=== PATIENT | female | born 1975 | race Hispanic/Latino ===

== ENCOUNTER 2016-09-21 14:50 | Inpatient (IN) | payer MEDICARE, MEDICAID, OTHER ==
[2016-09-21] MEDS ORDERED: oxyCODONE 5 mg Immediate Release Tab PO STA (15:58)
[2016-09-21 16:18] LABS: EOS # 0.1 (0.0-0.7); EOS % 1.6 % (1.5-5.0); GRAN # 2.36 (1.4-6.5); GRAN % 76.9 % (50.0-68.0); HEMOGLOBIN 12.5 gm/dL (12.0-16.0); LYMPH # 0.6 (1.2-3.4); LYMPH % 17.9 % (22.0-35.0); MEAN CELL VOLUME 85.9 fL (80.0-105.0); MEAN CORPUSCULAR HEMOGLOBIN 30.4 pg (25.0-35.0); MEAN CORPUSCULAR HGB CONC 35.4 g/dl (31.0-37.0); MONO # 0.1 (0.1-0.6); MONO % 3.6 % (1.0-6.0); RBC 4.11 10^6/uL (3.5-6.1); WHITE BLOOD COUNT 3.1 10^3/ul (4.5-11.0)
[2016-09-21 16:25] LABS: ALBUMIN 3.7 g/dL (3.0-4.8); ALT/SGPT 19 U/L (7-56); AST/SGOT 28 U/L (15-39); BLOOD UREA NITROGEN 8 mg/dL (7-21); CALCIUM 8.6 mg/dL (8.4-10.5); GFR AFRICAN-AMERICAN > 60; GFR NON-AFRICAN AMERICAN > 60; INR 1.45 (0.93-1.08); MAGNESIUM 1.7 mg/dL (1.7-2.2); PARTIAL THROMBOPLASTIN TIME 25.7 Seconds (23.7-30.8); PROTHROMBIN TIME 15.7 Seconds (9.9-11.8)
[2016-09-21 16:37] LABS: TROPONIN I < 0.01 ng/mL
[2016-09-21 16:48] LABS: PLATELET COUNT 54 10^3/uL (120.0-450.0)
[2016-09-21 17:26] LABS: PH,URINE 7.5 (4.7-8.0); URINE BILIRUBIN NEGATIVE (NEGATIVE); URINE BLOOD SMALL (NEGATIVE); URINE GLUCOSE (UA) NEGATIVE (NEGATIVE); URINE LEUKOCYTE ESTERASE NEGATIVE Leu/uL (NEGATIVE); URINE NITRATE NEGATIVE (NEGATIVE); URINE PROTEIN NEGATIVE mg/dL (<30 mg/dL); URINE UROBILINOGEN 0.2 E.U./dL (<1 E.U./dL)
[2016-09-21 17:27] LABS: URINE APPEARANCE SL CLOUDY (CLEAR); URINE COLOR YELLOW (YELLOW)
[2016-09-21 17:36] LABS: URINE BACTERIA TRACE (NEG); URINE EPITHELIAL CELLS 0 - 2 /hpf (0-5); URINE RBC 0 - 2 /hpf (0-2); URINE WBC 0 - 2 /hpf (0-6)
--- NOTE | 2016-09-21 18:07 | ED PDOC ---
Arrival/HPI - General Historian: Patient - History of Present Illness Symptom Onset: Sudden Symptom Course: Unchanged Activities at Onset: Rest Context: Home - General Chief Complaint: Shortness Of Breath Time Seen by Provider: 09/21/16 15:04 - History of Present Illness Narrative History of Present Illness (Text): 09/21/16 18:09 A 41 year old female presents to the emergency department complaining of chest pain and palpitations since this morning. Patient describes pain as non radiating. Patient is also complaining of chronic body pain secondary to her lupus. Patient is on opiates several times a day. Patient denies any fever, cough or any other complaints at this time. (Guille Baker DO) Past Medical History - Provider Review Nursing Documentation Reviewed: Yes - Infectious Disease Hx of Infectious Diseases: None - Tetanus Immunization Tetanus Immunization: Unknown - Cardiac Hx Cardiac Disorders: Yes Hx Hypertension: Yes - Pulmonary Hx Respiratory Disorders: Yes Other/Comment: sob - Neurological Hx Neurological Disorder: Yes Hx Headaches: Yes - HEENT Hx HEENT Disorder: Yes (wears eye glasses) - Renal Hx Renal Disorder: No - Endocrine/Metabolic Hx Endocrine Disorders: Yes Hx Hypothyroidism: Yes - Hematological/Oncological Hx Blood Disorders: Yes (Portal Vein Thrombosis) - Integumentary Hx Dermatological Disorder: Yes (keratosis polaris) - Musculoskeletal/Rheumatological Hx Musculoskeletal Disorders: Yes Hx Falls: Yes - Gastrointestinal Hx Gastrointestinal Disorders: Yes Hx Gastroesophageal Reflux: Yes - Genitourinary/Gynecological Hx Genitourinary Disorders: No - Psychiatric Hx Psychophysiologic Disorder: No Hx Substance Use: No - Surgical History Hx Appendectomy: Yes Other/Comment: bone marrow,kidney and rt.lower abdomonal mass biopsy, L breast biopsy - Anesthesia Hx Anesthesia: Yes Hx Anesthesia Reactions: No Hx Malignant Hyperthermia: No - Suicidal Assessment Feels Threatened In Home Enviroment: No Family/Social History - Physician Review Nursing Documentation Reviewed: Yes Family/Social History: No Known Family HX Smoking Status: Never Smoked Hx Alcohol Use: No Hx Substance Use: No Hx Substance Use Treatment: No Allergies/Home Meds Allergies/Adverse Reactions: Allergies No Known Allergies Allergy (Verified 06/08/15 15:42) Home Medications: Home Meds Medication Instructions Recorded Confirmed Albuterol Sulfate [Proair Hfa] 2 puff IH DAILY 12/04/11 09/21/16 Amlodipine Besylate 10 mg PO DAILY 12/04/11 09/21/16 Budesonide/Formoterol Fumarate 2 puff IH BID 12/04/11 09/21/16 [Symbicort 80-4.5 Mcg Inhaler] Furosemide 40 mg PO DAILY 12/04/11 09/21/16 Hydroxychloroquine Sulfate 200 mg PO BID 12/04/11 09/21/16 [Hydroxychloroquine] Levothyroxine Sodium 25 mcg PO DAILY 12/04/11 09/21/16 [Levothyroxine] Pantoprazole Sodium 40 mg PO DAILY 12/04/11 09/21/16 Vitamin D 1.25 mg PO MON 12/04/11 09/21/16 Warfarin [Coumadin] 7 mg PO 1800 08/24/14 09/21/16 Fentanyl [Duragesic] 50 mcg TD Q72 09/21/16 09/21/16 Gabapentin [Neurontin] 100 mg PO BID 09/21/16 09/21/16 Potassium Chloride [Klor-Con 10] 10 meq PO DAILY 09/21/16 09/21/16 oxyCODONE [oxyCODONE Immediate 15 mg PO TID PRN 09/21/16 09/21/16 Release Tab] Review of Systems - Physician Review All systems were reviewed & negative as marked: Yes - Review of Systems Constitutional: absent: Fevers Respiratory: absent: Cough Cardiovascular: Chest Pain, Palpitations Musculoskeletal: Other (chronic body pain) Physical Exam Vital Signs Reviewed: Yes Temperature: Afebrile Blood Pressure: Hypertensive Pulse: Regular Respiratory Rate: Normal Appearance: Positive for: Well-Appearing, Non-Toxic, Comfortable Pain Distress: None Mental Status: Positive for: Alert and Oriented X 3 - Systems Exam Head: Present: Atraumatic, Normocephalic Pupils: Present: PERRL Extroacular Muscles: Present: EOMI Conjunctiva: Present: Normal Mouth: Present: Moist Mucous Membranes Neck: Present: Normal Range of Motion Respiratory/Chest: Present: Clear to Auscultation, Good Air Exchange. No: Respiratory Distress, Accessory Muscle Use Cardiovascular: Present: Regular Rate and Rhythm, Normal S1, S2. No: Murmurs Abdomen: Present: Normal Bowel Sounds. No: Tenderness, Distention, Peritoneal Signs Back: Present: Normal Inspection Upper Extremity: Present: Normal Inspection. No: Cyanosis, Edema Lower Extremity: Present: Normal Inspection. No: Edema Neurological: Present: GCS=15, CN II-XII Intact, Speech Normal Skin: Present: Warm, Dry, Normal Color, Other (chronic skin lesions on lower extremity). No: Rashes Psychiatric: Present: Alert, Oriented x 3, Normal Insight, Normal Concentration Vital Signs Temp Pulse Resp BP Pulse Ox 09/21/16 23:00 84 18 116/79 98 09/21/16 21:00 97 H 18 144/81 96 09/21/16 19:00 79 18 134/72 98 09/21/16 17:05 75 16 131/82 98 09/21/16 14:51 98 F 84 18 160/79 H 100 Medical Decision Making - Lab Interpretations I have reviewed the lab results: Yes - EKG Interpretation Interpreted by ED Physician: Yes Type: 12 lead EKG ED Course and Treatment: 09/21/16 18:04 Impression: A 41 year old female with chest pain and palpitations. Plan: -- EKG -- chest xray -- CT angio chest -- labs -- Urinalysis -- Aspirin, Oxycodone -- Reassess and disposition Prior Visits: Notes and results from previous visits were reviewed. Patient last reported to the emergency department on 06/08/15 for evaluation of redness and pain to the left medial distal thigh. Progress Notes: EKG: Ordered, reviewed, and independently interpreted the EKG. Rate : 82 BPM Rhythm : NSR Interpretation : Normal axis, normal intervals (Guille Bakre DO) - Lab Interpretations Lab Results: 09/23/16 08:30 09/23/16 08:30 Lab Results 09/23/16 08:30: Sodium 142, Potassium 4.7, Chloride 108, Carbon Dioxide 26, Anion Gap 13, BUN 7, Creatinine 0.6, Est GFR ( Amer) > 60, Est GFR (Non- Af Amer) > 60, Random Glucose 80, Calcium 8.7 09/23/16 08:30: WBC 2.0 L* D, RBC 3.88, Hgb 11.5 L, Hct 33.7 L, MCV 86.9, MCH 29.6, MCHC 34.1, RDW 14.2, Plt Count 53 L, MPV 11.4 H, Neutrophils % (Manual) 64 , Lymphocytes % (Manual) 22, Monocytes % (Manual) 4, Eosinophils % (Manual) 10 H 09/23/16 08:30: PT 12.8 H, INR 1.19 H 09/22/16 06:30: PT 15.4 H, INR 1.43 H 09/22/16 06:30: Free T4 1.07, TSH 3rd Generation 3.99 09/22/16 06:30: Hemoglobin A1c 4.9 09/22/16 06:30: Sodium 139, Potassium 3.5 L, Chloride 109 H, Carbon Dioxide 20 L , Anion Gap 14, BUN 9, Creatinine 0.5, Est GFR ( Amer) > 60, Est GFR (Non -Af Amer) > 60, Random Glucose 67 L, Calcium 8.2 L, Total Bilirubin 2.1 H, AST 26, ALT 22, Alkaline Phosphatase 53, Troponin I 0.03 D, Total Protein 7.0, Albumin 3.3, Globulin 3.6, Albumin/Globulin Ratio 0.9 L 09/21/16 16:46: Urine Color Yellow, Urine Appearance Sl cloudy, Urine pH 7.5, Ur Specific [place] 1.010, Urine Protein Negative, Urine Glucose (UA) Negative, Urine Ketones Negative, Urine Blood Small H, Urine Nitrate Negative, Urine Bilirubin Negative, Urine Urobilinogen 0.2, Ur Leukocyte Esterase Negative, Urine RBC 0 - 2, Urine WBC 0 - 2, Ur Epithelial Cells 0 - 2, Urine Bacteria Trace 09/21/16 15:50: Triglycerides 73, Cholesterol 121 L, LDL Cholesterol Direct 56, HDL Cholesterol 42 09/21/16 15:50: PT 15.7 H, INR 1.45 H, APTT 25.7 09/21/16 15:50: Sodium 139, Potassium 3.6, Chloride 108 H, Carbon Dioxide 20 L, Anion Gap 15, BUN 8, Creatinine 0.5, Est GFR ( Amer) > 60, Est GFR (Non- Af Amer) > 60, Random Glucose 86, Calcium 8.6, Magnesium 1.7, Total Bilirubin 2.5 H, AST 28, ALT 19, Alkaline Phosphatase 61, Lactate Dehydrogenase 389, Total Creatine Kinase 63, Troponin I < 0.01 D, Total Protein 7.4, Albumin 3.7, Globulin 3.7, Albumin/Globulin Ratio 1.0 L 09/21/16 15:50: WBC 3.1 L D, RBC 4.11, Hgb 12.5, Hct 35.3 L, MCV 85.9, MCH 30.4 , MCHC 35.4, RDW 14.0, Plt Count 54 L, Gran % 76.9 H, Lymph % (Auto) 17.9 L, [place] % (Auto) 3.6, Eos % (Auto) 1.6, Baso % (Auto) 0.0, Gran # 2.36, Lymph # 0.6 L, [place] # 0.1, Eos # 0.1, Baso # 0.00 - RAD Interpretation Radiology Orders: 09/21/16 15:05 CHEST PORTABLE [RAD] Stat 09/21/16 17:56 ANGIO CHEST PE PROTOCOL [CT] Stat - Medication Orders Current Medication Orders: Discontinued Medications Aminophylline (Aminophylline 25 Mg/Ml Inj) Confirm Administered Dose 250 mg .ROUTE .STK-MED ONE Stop: 09/22/16 09:56 Last Admin: 09/22/16 10:30 Dose: 100 mg Amlodipine Besylate (Norvasc) 10 mg PO DAILY [facility] Last Admin: 09/24/16 09:02 Dose: 10 mg Aspirin (Aspirin) 325 mg PO STAT STA Stop: 09/21/16 15:06 Last Admin: 09/21/16 15:28 Dose: Aspirin (Ecotrin) 325 mg PO STAT STA Stop: 09/23/16 09:52 Last Admin: 09/23/16 10:06 Dose: 325 mg Atropine Sulfate (Atropine) Confirm Administered Dose 1 mg .ROUTE .STK-MED ONE Stop: 09/23/16 14:31 Last Admin: 09/23/16 17:32 Dose: Bacitracin (Bacitracin) 1 ea TOP ONCE ONE Stop: 09/23/16 15:35 Last Admin: 09/23/16 17:55 Dose: 1 ea Bacitracin (Bacitracin) Confirm Administered Dose 1 ea .ROUTE .STK-MED ONE Stop: 09/23/16 17:53 Last Admin: 09/23/16 17:55 Dose: Clopidogrel Bisulfate (Plavix) 300 mg PO STAT STA Stop: 09/23/16 09:52 Last Admin: 09/23/16 10:06 Dose: 300 mg Cyclobenzaprine HCl (Flexeril) 10 mg PO HS [facility] Last Admin: 09/23/16 21:25 Dose: 10 mg Enoxaparin Sodium (Lovenox) 80 mg SC Q12H [facility] PRN Reason: Protocol Last Admin: 09/22/16 22:17 Dose: 80 mg Enoxaparin Sodium (Lovenox) 70 mg SC Q12H [facility] PRN Reason: Protocol Last Admin: 09/24/16 05:23 Dose: 70 mg Enoxaparin Sodium (Lovenox) 70 mg SC ONCE ONE PRN Reason: Protocol Stop: 09/24/16 17:44 Last Admin: 09/24/16 18:06 Dose: 70 mg Fentanyl (Duragesic) 1 patch TD Q72H [facility] Last Admin: 09/22/16 00:30 Dose: 1 patch Fentanyl (Fentanyl) Confirm Administered Dose 100 mcg .ROUTE .STK-MED ONE Stop: 09/23/16 14:55 Last Admin: 09/23/16 15:05 Dose: 100 mcg Comments: IV. 50 mcg @ [address] Cheng. 50 mcg @ [address] Cehng Furosemide (Lasix) Confirm Administered Dose 100 mg .ROUTE .STK-MED ONE Stop: 09/23/16 15:25 Last Admin: 09/23/16 15:24 Dose: 40 mg Comments: IV per Dr. Cheng Gabapentin (Neurontin) 100 mg PO BID [facility] PRN Reason: Protocol Last Admin: 09/24/16 17:22 Dose: 100 mg Heparin Sodium (Porcine) (Heparin) Confirm Administered Dose 10,000 units .ROUTE .STK-MED ONE Stop: 09/23/16 14:31 Last Admin: 09/23/16 15:10 Dose: 2,500 units Comments: IA by Dr. Cheng Hydroxychloroquine Sulfate (Plaquenil) 200 mg PO BID [facility] Last Admin: 09/24/16 17:22 Dose: 200 mg Nitroglycerin/Dextrose (Nitroglycerin 50 Mg/250 Ml D5w) Confirm Administered Dose 50 mg in 250 mls @ ud IV .STK-MED ONE Stop: 09/23/16 14:32 Last Admin: 09/23/16 15:10 Dose: 0.2 mg Comments: [place] by Dr. Cheng Heparin Sodium (Porcine) (Heparin 1000 Units/500 Ml Ns) Confirm Administered Dose 1,500 mls @ ud IV .STK-MED ONE Stop: 09/23/16 14:32 Sodium Chloride (Sodium Chloride 0.9%) 1,000 mls @ 100 mls/hr IV .Q10H [facility] Last Admin: 09/24/16 12:27 Dose: 100 mls/hr Magnesium Sulfate/Dextrose (Magnesium Sulfate 1 Gm/100 Ml D5w) 1 gm in 100 mls @ 100 mls/hr IV ONCE ONE Stop: 09/24/16 13:38 Last Admin: 09/24/16 13:17 Dose: 100 mls/hr Iohexol (Omnipaque 350 100 Ml) Confirm Administered Dose 350 mg .ROUTE .STK-MED ONE Stop: 09/21/16 18:14 Iohexol (Omnipaque 350 150 Ml) Confirm Administered Dose 150 ml .ROUTE .STK-MED ONE Stop: 09/23/16 14:32 Last Admin: 09/23/16 15:06 Dose: 150 ml Comments: During procedure Levothyroxine Sodium (Synthroid) 25 mcg PO ACB [facility] Last Admin: 09/24/16 07:29 Dose: 25 mcg Lidocaine HCl (Lidocaine 2% 20ml Vial) Confirm Administered Dose 20 ml .ROUTE .STK-MED ONE Stop: 09/23/16 14:31 Last Admin: 09/23/16 15:06 Dose: 10 ml Comments: SC by Dr. Cheng Midazolam HCl (Versed Inj) Confirm Administered Dose 2 mg .ROUTE .STK-MED ONE Stop: 09/23/16 14:55 Last Admin: 09/23/16 15:05 Dose: 2 mg Comments: IV. 1 mg @ [address] Cheng. 1 mg @ [address] Cheng. Morphine Sulfate (Morphine) 2 mg IVP STAT STA Stop: 09/21/16 20:57 Last Admin: 09/21/16 21:10 Dose: 2 mg Re-Assess: [facility] Pain Assessment Document 09/21/16 22:10 JOL (Rec: 09/21/16 22:46 JOL [id number]) Pain Reassessment Is this a pain reassessment? Yes Sleep Is patient sleeping during reassessment? No Presence of Pain Presence of Pain No Ondansetron HCl (Zofran Inj) 4 mg IVP ONCE ONE Stop: 09/22/16 13:50 Last Admin: 09/22/16 13:58 Dose: 4 mg Oxycodone HCl (Oxycodone Immediate Release Tab) 5 mg PO STAT STA Stop: 09/21/16 15:59 Last Admin: 09/21/16 16:19 Dose: 5 mg Re-Assess: ALLYSSA Pain Assessment Document 09/21/16 17:19 SRE (Rec: 09/21/16 18:22 [id number] [id number]) Pain Reassessment Is this a pain reassessment? Yes Sleep Is patient sleeping during reassessment? No Presence of Pain Presence of Pain Yes Pain Scale Used Pain Scale Used Numeric Oxycodone HCl (Oxycodone Immediate Release Tab) 15 mg PO TID PRN PRN Reason: Pain, Mild (1-3) Last Admin: 09/24/16 07:53 Dose: 15 mg Pantoprazole Sodium (Protonix Ec Tab) 40 mg PO DAILY [facility] Last Admin: 09/24/16 09:02 Dose: 40 mg Potassium Chloride (Klor-Con 10) 10 meq PO DAILY [facility] Last Admin: 09/24/16 09:02 Dose: 10 meq Potassium Chloride (K-Dur 20 Meq Er Tab) 40 meq PO ONCE ONE Stop: 09/22/16 09:28 Last Admin: 09/22/16 13:50 Dose: 40 meq Regadenoson (Lexiscan) Confirm Administered Dose 0.4 mg IVP .STK-MED ONE Stop: 09/22/16 09:57 Last Admin: 09/22/16 10:15 Dose: 0.4 mg Verapamil HCl (Verapamil Inj) Confirm Administered Dose 5 mg IVP .STK-MED ONE Stop: 09/23/16 14:32 Last Admin: 09/23/16 15:10 Dose: 2.5 mg Comments: IA by Dr. Cheng Warfarin Sodium (Coumadin) 10 mg PO 1800 [facility] PRN Reason: Protocol Last Admin: 09/24/16 17:22 Dose: 10 mg - Scribe Statement The provider has reviewed the documentation as recorded by the Scribe - Scribe Statement Kacey Camp Provider Scribe Attestation: All medical record entries made by the Scribe were at my direction and personally dictated by me. I have reviewed the chart and agree that the record accurately reflects my personal performance of the history, physical exam, medical decision making, and the department course for this patient. I have also personally directed, reviewed, and agree with the discharge instructions and disposition. (Guille Baker DO) Disposition/Present on Arrival - Present on Arrival Any Indicators Present on Arrival: No History of DVT/PE: No History of Uncontrolled Diabetes: No Urinary Catheter: No History of Decub. Ulcer: No History Surgical Site Infection Following: None - Disposition Have Diagnosis and Disposition been Completed?: Yes Disposition Time: 17:00 - Disposition Diagnosis: Chest pain Disposition: HOSPITALIZED Condition: STABLE
[2016-09-21] MEDS ORDERED: Iohexol 350 MG/100 ML VIAL ONE (18:13)
--- NOTE | 2016-09-21 19:43 | ED PDOC ---
Physical Exam Vital Signs Reviewed: Yes Vital Signs Temp Pulse Resp BP Pulse Ox 09/21/16 21:00 97 H 18 144/81 96 09/21/16 19:00 79 18 134/72 98 09/21/16 17:05 75 16 131/82 98 09/21/16 14:51 98 F 84 18 160/79 H 100 Temperature: Afebrile Blood Pressure: Hypertensive Pulse: Regular Respiratory Rate: Normal Appearance: Positive for: Well-Appearing, Non-Toxic, Comfortable Pain Distress: None Mental Status: Positive for: Alert and Oriented X 3 Medical Decision Making ED Course and Treatment: 09/21/16 19:42 Case signed out to me by Dr. Baker. 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 Patient has a past medical history of lupus. Awaiting CT angio chest, reassessment and final disposition. CT Angiography Chest With Intravenous Contrast FINDINGS: Pulmonary arteries: No filling defects are seen in the main and proximal pulmonary arteries. The distal branches of the pulmonary arterial system is not optimally opacified secondary to suboptimal opacification and other technical limitation such as motion. Therefore small distal emboli can be obscured. Aorta: Negative for aortic dissection or aneurysm. Lungs: Lungs overall clear. No focal lung consolidation, pulmonary infiltrates, no cavitary changes are seen. Pleural space: Unremarkable. No significant effusion. No pneumothorax. Heart: The cardiac chambers are moderately enlarged without the presence of pericardial thickening or effusion. No evidence of RV dysfunction. Mediastinum: Left thyroid lobe mass with extension into the superior mediastinum 2.2 cm. Bones/joints: Small nonspecific sclerotic focus midthoracic spine probably a bone island. Bones otherwise unremarkable. No acute fracture. No dislocation. Soft tissues: Left breast mass is 1.9 cm. Lymph nodes: Unremarkable. No enlarged lymph nodes. Liver: Moderate intrahepatic and extrahepatic biliary dilatation. Gallbladder and bile ducts: Gallbladder unremarkable. Spleen: Marked splenomegaly is present. IMPRESSION: Negative for aortic dissection or aneurysm, negative for PE. Circumscribed left breast mass 1.9 cm. Differential diagnoses asymmetric breast tissue, fibroadenoma, versus neoplasm. Consider correlation with mammogram, and sinogram as an outpatient. Marked splenomegaly. Moderate intrahepatic biliary dilatation, please correlate with patient's enzymes. Left thyroid mass. Consider correlation with sonogram as an outpatient. Dictated and Authenticated by: Francisco Miller MD 09/21/2016 7:23 PM Eastern Time ([place] & [place]) 09/21/16 21:[address] Pitts, who is aware and agrees with plan. Accepts pt in to her service. Pt will go to Telemetry observation for chest pain. - Lab Interpretations Lab Results: 09/21/16 15:50 09/21/16 15:50 Lab Results 09/21/16 16:46: Urine Color Yellow, Urine Appearance Sl cloudy, Urine pH 7.5, Ur Specific [place] 1.010, Urine Protein Negative, Urine Glucose (UA) Negative, Urine Ketones Negative, Urine Blood Small H, Urine Nitrate Negative, Urine Bilirubin Negative, Urine Urobilinogen 0.2, Ur Leukocyte Esterase Negative, Urine RBC 0 - 2, Urine WBC 0 - 2, Ur Epithelial Cells 0 - 2, Urine Bacteria Trace 09/21/16 15:50: PT 15.7 H, INR 1.45 H, APTT 25.7 09/21/16 15:50: Sodium 139, Potassium 3.6, Chloride 108 H, Carbon Dioxide 20 L, Anion Gap 15, BUN 8, Creatinine 0.5, Est GFR ( Amer) > 60, Est GFR (Non- Af Amer) > 60, Random Glucose 86, Calcium 8.6, Magnesium 1.7, Total Bilirubin 2.5 H, AST 28, ALT 19, Alkaline Phosphatase 61, Lactate Dehydrogenase 389, Total Creatine Kinase 63, Troponin I < 0.01 D, Total Protein 7.4, Albumin 3.7, Globulin 3.7, Albumin/Globulin Ratio 1.0 L 09/21/16 15:50: WBC 3.1 L D, RBC 4.11, Hgb 12.5, Hct 35.3 L, MCV 85.9, MCH 30.4 , MCHC 35.4, RDW 14.0, Plt Count 54 L, Gran % 76.9 H, Lymph % (Auto) 17.9 L, [place] % (Auto) 3.6, Eos % (Auto) 1.6, Baso % (Auto) 0.0, Gran # 2.36, Lymph # 0.6 L, [place] # 0.1, Eos # 0.1, Baso # 0.00 I have reviewed the lab results: Yes - RAD Interpretation Radiology Orders: 09/21/16 15:05 CHEST PORTABLE [RAD] Stat 09/21/16 17:56 ANGIO CHEST PE PROTOCOL [CT] Stat - Medication Orders Current Medication Orders: Discontinued Medications Aspirin (Aspirin) 325 mg PO STAT STA Stop: 09/21/16 15:06 Last Admin: 09/21/16 15:28 Dose: Iohexol (Omnipaque 350 100 Ml) Confirm Administered Dose 350 mg .ROUTE .STK-MED ONE Stop: 09/21/16 18:14 Morphine Sulfate (Morphine) 2 mg IVP STAT STA Stop: 09/21/16 20:57 Last Admin: 09/21/16 21:10 Dose: 2 mg Oxycodone HCl (Oxycodone Immediate Release Tab) 5 mg PO STAT STA Stop: 09/21/16 15:59 Last Admin: 09/21/16 16:19 Dose: 5 mg Re-Assess: ALLYSSA Pain Assessment Document 09/21/16 17:19 SRE (Rec: 09/21/16 18:22 SRE [id number]) Pain Reassessment Is this a pain reassessment? Yes Sleep Is patient sleeping during reassessment? No Presence of Pain Presence of Pain Yes Pain Scale Used Pain Scale Used Numeric - Scribe Statement The provider has reviewed the documentation as recorded by the [place] Provider Scribe Attestation: All medical record entries made by the Arielleibvicky were at my direction and personally dictated by me. I have reviewed the chart and agree that the record accurately reflects my personal performance of the history, physical exam, medical decision making, and the department course for this patient. I have also personally directed, reviewed, and agree with the discharge instructions and disposition. Disposition/Present on Arrival - Present on Arrival Any Indicators Present on Arrival: No History of DVT/PE: No History of Uncontrolled Diabetes: No Urinary Catheter: No History of Decub. Ulcer: No History Surgical Site Infection Following: None - Disposition Have Diagnosis and Disposition been Completed?: Yes Diagnosis: Chest pain Disposition: HOSPITALIZED Disposition Time: 21:16 Patient Plan: Observation Condition: STABLE Discharge Instructions (ExitCare): Chest Pain (ED) Referrals: Jada Pitts MD [Primary Care Provider] - Follow up with primary
--- NOTE | 2016-09-21 20:38 | CARD ---
APPROVED REPORT EKG Measurement Heart [id number] MA [id number] <Conclusion> Normal sinus rhythm Incomplete left bundle branch block Nonspecific ST and T wave abnormality Prolonged QT Abnormal ECG
[2016-09-21] MEDS ORDERED: Morphine 2 mg/ml ISec IVP STA (20:56)
[2016-09-21 23:12] LABS: HDL CHOLESTEROL 42 mg/dL (29-60)
[2016-09-21 23:23] LABS: LDL CHOLESTEROL 56 mg/dL (0-129)
[2016-09-22] MEDS: Enoxaparin 80 mg Syringe SC SCH ×3 (00:30→22:17)
[2016-09-22 01:55] VITALS: BMI 30.4
[2016-09-22] MEDS: oxyCODONE 15 mg Immediate Release Tab PO PRN ×3 (06:33→21:06)
[2016-09-22 07:01] LABS: INR 1.43 (0.93-1.08); PROTHROMBIN TIME 15.4 Seconds (9.9-11.8)
[2016-09-22 07:18] LABS: ALB/GLOB RATIO 0.9 (1.1-1.8); ALBUMIN 3.3 g/dL (3.0-4.8); ALT/SGPT 22 U/L (7-56); AST/SGOT 26 U/L (15-39); BLOOD UREA NITROGEN 9 mg/dL (7-21); CALCIUM 8.2 mg/dL (8.4-10.5); GFR AFRICAN-AMERICAN > 60; GFR NON-AFRICAN AMERICAN > 60
[2016-09-22 07:28] LABS: TROPONIN I 0.03 ng/mL
[2016-09-22 07:34] LABS: FREE T4 1.07 ng/dL (0.78-2.19)
--- NOTE | 2016-09-22 07:56 | HP ---
HISTORY OF PRESENT ILLNESS: The patient is 41-year-old white female known to me from office practice and previous admission, came to emergency room because feeling of shortness of breath, palpitation and some chest discomfort. Pain is non radiating. Denies any fever or chills. No significant cough or congestion. No nausea, vomiting or diarrhea. No discomfort, no general malaise. She has no hemoptysis, no hematemesis. PAST MEDICAL HISTORY: Significant for; 1. Lupus. 2. History of coagulopathy. 3. Generalized rheumatoid arthritis. 4. History of DVT in 2000. 5. History of splenic vein thrombosis in March 2014. 6. History of massive splenomegaly. 7. History of portal vein thrombosis and splenic vein thrombosis. 8. Thrombocytopenia. 9. Chronic anemia. 10. Iron deficiency anemia. 11. Hypothyroidism. SURGICAL HISTORY: Significant for appendectomy. SOCIAL HISTORY: Denies smoking or drinking. She is . Now lives with her family. MEDICATIONS: At home; she is on amlodipine 10 mg daily, Flexeril 10 mg at bedtime, Duragesic patch 50 mcg q. 72 hours, Neurontin 100 mg twice a day, Plaquenil 200 mg twice a day, Protonix 40 mg daily, potassium 10 mEq daily, vitamin D, oxycodone 15 mg three times a day and Coumadin 7 mg daily. REVIEW OF SYSTEMS: Significant for generalized weakness, generalized joint pain. Complained of palpation at the time of examination. PHYSICAL EXAMINATION: GENERAL: She is awake and alert, communicative. VITAL SIGNS: She is afebrile. Pulse 79, respirations 18, blood pressure 124/72. LUNGS: Bilateral fair airflow. No rhonchi or crackles. HEART: S1 and S2 audible. ABDOMEN: Soft, nontender. No rebound, no guarding. NEUROLOGIC: She is awake and alert, communicative. EXTREMITIES: Bilateral legs, she has chronic skin condition when she gets flare up of an itchy rash. LABORATORY DATA: Today's lab; WBC 3.1, hemoglobin 12.5, hematocrit 35, platelets 154. PT 15.7, INR 1.45. Chemistry; sodium 139, potassium 3.6, chloride 108, CO2 of 20, BUN 8, creatinine 0.5, blood sugar *------*. Total bilirubin 2.5. Urinalysis is unremarkable and x-ray chest is unremarkable. ASSESSMENT AND PLAN: 1. Chest pain, probably noncardiac. I will give her a dose of Lovenox since she is subtherapeutic and she has history of splenic vein thrombosis and portal vein thrombosis. 2. Lupus. 3. Hypothyroidism. PLAN: We will resume her medications. We will give her dose of Lovenox. Dr. Ho will be consulted and *------* for cardiology consult. Follow up PT/INR in a.m. Jada Pitts MD
[2016-09-22] MEDS: Levothyroxine 25 MCG TAB PO SCH (08:20)
--- NOTE | 2016-09-22 08:40 | CT ---
PROCEDURE: CT Chest with contrast (Pulmonary Angiogram) HISTORY: r/o PE COMPARISON: Prior chest CT dated 08/04/2013 with contrast TECHNIQUE: Axial computed tomography images were obtained of the chest in the pulmonary arterial phase of enhancement. Coronal and sagittal reformatted images were created and reviewed. Intravenous contrast dose: Omnipaque 350-100 cc Radiation dose: Total exam DLP = 413 mGy-cm. This CT exam was performed using one or more of the following dose reduction techniques: Automated exposure control, adjustment of the mA and/or kV according to patient size, and/or use of iterative reconstruction technique. FINDINGS: PULMONARY ARTERIES: Unremarkable. No pulmonary embolism identified. AORTA: No acute findings. No thoracic aortic aneurysm or dissection. LUNGS: Unremarkable. No nodule, mass or pulmonary consolidation. PLEURAL SPACES: Unremarkable. No effusion or pneuomothorax. HEART: There is cardiomegaly once again. No significant pericardial effusion. However, there is no pulmonary vascular derangement appreciated grossly. LYMPH NODES: No lymphadenopathy. BONES, CHEST WALL: Stable sclerotic focus at the posterior upper portion of the T7 vertebral body. No fracture or destructive lesion Incidental questionable left breast lesion which may have already been clinically address is there is a small surgical clip immediately cephalad to it. Clinical follow-up is advised tear nevertheless. OTHER FINDINGS: Stable, likely residual thymic tissue unchanged in size and appearance compared to prior CT 08/04/2013. Also, promise splenomegaly is identified this 15.9 cm in the interval in this patient with a reported prior history of splenic vein thrombosis. Further, stable intrahepatic biliary duct dilatation is appreciated. And finally, enlarged left thyroid lobe is again appreciated with 4.8 cm nodule, likely larger in the interval but difficult to compare due to the poor definition in the prior CT. IMPRESSION: 1. No CT evidence to suggest pulmonary embolus at this time. No infiltrate, pleural or pericardial effusion or pneumothorax. 2. Cardiomegaly Doppler vascular derangement appreciated. 3. Stable residual thymic tissue at anterior mediastinum. 4. Incidental 4.8 cm nodule left lobe thyroid gland likely slightly larger in size in the interval. CT noted above. Clinical and sonographic follow-up are recommended. 5. Stable prominent splenomegaly and central intrahepatic biliary duct dilatation. 6. Incidental left breast lesion for which clinical and possible mammogram follow-up are advised. Preliminary report provided by Iveth Miller 09/21/2016 at 1923 hours.
--- NOTE | 2016-09-22 08:48 | RAD ---
HISTORY: chest pain COMPARISON: 08/04/2013 FINDINGS: LUNGS: No active pulmonary disease. PLEURA: No significant pleural effusion identified, no pneumothorax apparent. CARDIOVASCULAR: Mild cardiomegaly OSSEOUS STRUCTURES: No significant abnormalities. VISUALIZED UPPER ABDOMEN: Normal. OTHER FINDINGS: None. IMPRESSION: No active disease.
[2016-09-22] MEDS ORDERED: Potassium Chloride 20 mEq ER Tab PO ONE (09:27)
[2016-09-22] MEDS ORDERED: Aminophylline 25 mg/ml Inj ONE (09:55)
[2016-09-22] MEDS: Pantoprazole 40 mg EC Tab PO SCH (12:16)
--- NOTE | 2016-09-22 12:35 | CARD ---
APPROVED REPORT EXAM: Two-dimensional and M-mode echocardiogram with Doppler and color Doppler. INDICATION Chest Pain 2D DIMENSIONS Left Atrium (2D)4.9 (1.6-4.0cm)IVSd1.0 (0.7-1.1cm) LVDd6.2 (3.9-5.9cm)PWd0.9 (0.7-1.1cm) LVDs4.7 (2.5-4.0cm)FS (%) 23.3 % LVEF (%)45.8 (>50%) M-Mode DIMENSIONS Aortic Root2.90 (2.2-3.7cm)Aortic Cusp Exc.1.80 (1.5-2.0cm) Aortic Valve AoV Peak Eqzaddwl521.0cm/Piotr Peak GR.24mmHgAI P 1/2 Pyic729nj Mitral Valve MV E Biwqfoiu90.5cm/sMV A Lblayqid73.7cm/sE/A ratio1.2 TDI E/Lateral E'0.0E/Medial E'0.0 Tricuspid Valve TR Peak Xtqmdqjx835ae/sRAP RYJHNNBH13nfEuJS Peak Gr.22mmHg [id number] LEFT VENTRICLE The Left Ventricle is mildly dilated. There is normal left ventricular wall thickness. The systolic function is mildly impaired.EF-45-50% There is mild global hypokinesis of the left ventricle. The left ventricular diastolic function is normal. No left ventricle thrombus noted on this study. There is no ventricular septal defect visualized. There is no left ventricular aneurysm. RIGHT VENTRICLE The right ventricle is normal size. There is normal right ventricular wall thickness. The right ventricular systolic function is normal. ATRIA The left atrium is mildly dilated. The right atrium size is normal. The interatrial septum is intact with no evidence for an atrial septal defect. AORTIC VALVE The aortic valve is thickened but opens well. There is mild to moderate aortic regurgitation. There is no aortic valvular stenosis. There is no aortic valvular vegetation. MITRAL VALVE The mitral valve is thickened but opens well. Mitral regurgitation is mild to moderate. There is no mitral valve stenosis. There is no evidence of mitral valve prolapse. TRICUSPID VALVE The tricuspid valve leaflets are thickened , but open well. There is mild tricuspid regurgitation.RVSP-31 mmof hg. There is no tricuspid valve stenosis. There is no tricuspid valve prolapse or vegetation. PULMONIC VALVE The pulmonic valve is mildly thickened. There is mild pulmonic valvular regurgitation. There is no pulmonic valvular stenosis. GREAT VESSELS The aortic root is normal in size. The ascending aorta is normal in size. The pulmonary artery is normal. The IVC is normal in size and collapses >50% with inspiration. PERICARDIAL EFFUSION There is no pleural effusion. There is no pericardial effusion. <Conclusion> The Left Ventricle is mildly dilated. There is normal left ventricular wall thickness. The systolic function is mildly impaired.EF-45-50% There is mild to moderate aortic regurgitation. Mitral regurgitation is mild to moderate. There is mild tricuspid regurgitation.RVSP-31 mmof hg. There is mild pulmonic valvular regurgitation. The IVC is normal in size and collapses >50% with inspiration. There is no pericardial effusion. no vegetation or thrombus noted.
[2016-09-22] MEDS: Potassium Chloride 10 mEq ER Tab PO SCH (13:29)
--- NOTE | 2016-09-22 22:44 | CARD ---
APPROVED REPORT Protocol: LEXISCAN Test Type: Lexiscan Sestamibi Stress Test Attending Physician: Dr. Paul Cheng Referring Physician: Dr. Jada Pitts Test Indications: Chest Pain Height:5 ft 6 in Weight:186lbs Medications: Coumadin K dur Lovenox Neurontin Amlodipine Duragesic Plaquinel Medical History: 41 y/o female hx of chest pain has thrombocytopenia Target HR: 178 bpm Resting ECG: NSR IVCD with ST T changes, Resting Heart Rate: 76 bpm Resting Blood Pressure: 104/80mmHg Submaximum (85%): 151 bpm PROCEDURE Pharmacologic stress testing was performed using 0.4mg per 5ml of regadenoson given intravenously over 7-10 seconds. POST EXERCISE Reason for Termination: Protocol completed Target HR: No Max HR: 90 bpm 59% of Maximum Predicted HR: 178 bpm Exercise duration: 00:39 min:sec, 0 Stage Exercise capacity: 1.0METs Max Blood Pressure: 104/80mmHg Blood Pressure response to exercise: normal resting BP - appropriate response Heart Rate response to exercise: appropriate Chest Pain: No, none Angina index: 0 Arrhythmia: No, none ST Change: Yes, 1/2 -1 mm depression with T inversion in Leads II, V5-6 which Deviation: 0 mm INTERPRETATION Stress EKG Conclusion: Negative for chest pain and for ischemia , Nuclear scan to follow.. Signed by Paul Cheng Electronically Approved: 09/22/2016 13:18:16 EXAM: Myocardial Perfusion REST/STRESS Stress Test Type: Pharmacologic Imaging Protocol Rest Spect myocardial perfusion imaging was performed in supine position 45 minutes following the injection of 10.3 mCi of Tc-99 Myoview. At peak stress, the patient was injected intravenously with 30.8mCi of Tc-99 tetrofosmin after an infusion time of 0 minutes and 10 seconds. Gated Stress Spect was performed 60 minutes after intravenous Tc-99 Myoview injection. The images were gated to evaluate regional wall motion and calculate ventricular ejection fraction.Images were reconstructed using backfilter projection method in short horizontal and verticle long axis. Spect slices were generated. LV Perfusion The quality of the study is good. The left ventricle is moderately enlarged in size. The right ventricle is unremarkable. The lung uptake is normal. The distribution of tracer reveals an area of moderately decreased perfusion in the distal anteroseptal and apical anderson on the stress study. The remainder of the LV myocardium is unremarkable. The rest myocardial perfusion study shows partial improvement of the defects. Wall Motion Wall motion study shows good contractility of the left ventricle. LVEF = 53%. Conclusion 1. Probably abnormall SPECT myocardial perfusion study. 2. Partially reversible, anteroseptal and apical defects are suspicous of ischemia. However the effect of shiting breast artifact cannot be ruled out. 3. Normal gated wall motion of the left ventricle. 4. In comparison with the last study of 08/07/2013, the changes may be new.
--- NOTE | 2016-09-23 00:22 | CON ---
DATE: 09/22/2016 CONSULT REQUESTED BY: Dr. Pitts. REASON FOR CONSULTATION: Hypercoagulable state, history of DVT. HISTORY OF PRESENT ILLNESS: Ms. Fitzgerald is a 41-year-old female admitted to the hospital with shortness of breath, palpitations, chest discomfort. She is hypercoagulable state with history of extensive DVT in the past. She has DVT in splenic vein and portal vein thrombosis. She has been on anticoagulation. Lately, she has been noncompliant with the office visit. She is on Coumadin, on admission, INR was subtherapeutic with 1.4. Denies any bleeding. Shortness of breath has improved during hospitalization. She has a cardiac stress test done today. CT chest was done in the ED, which did not show any evidence of pulmonary embolism. There was cardiomegaly and a 4.8 cm left thyroid lobe nodule. There was incidental finding of left breast lesion on the CAT scan. She also has history of lupus with skin involvement only. PAST MEDICAL HISTORY: Lupus, hypercoagulable state, portal vein thrombosis, splenic vein thrombosis, rheumatoid arthritis, thrombocytopenia, chronic anemia, iron deficiency anemia, hypothyroidism and history of breast nodule, biopsy proven, benign. PAST SURGICAL HISTORY: Appendectomy. SOCIAL HISTORY: Denies any smoking. No history of alcohol abuse. Apart from this, she lives at home with her . Family History : negative for mother, father. HOME MEDICATIONS: Amlodipine 10 mg daily, Duragesic patch 50 mcg daily, Neurontin 100 mg twice a day, Plaquenil 200 mg twice a day, Protonix 40 mg daily, Coumadin 7 mg daily and oxycodone p.r.n. REVIEW OF SYSTEMS: As per HPI. rest 12 point systems reviewed, negative. PHYSICAL EXAMINATION GENERAL: Comfortable in bed, in no acute distress. VITAL SIGNS: Temperature 98.7, heart rate 80 per minute, respiratory rate 15 per minute, blood pressure 120/70, oxygen saturation 98% on oxygen via nasal cannula. HEENT: Normal. NECK: Supple. CHEST: Air entry present and equal bilaterally. No added sounds. CARDIOVASCULAR: S1 and S2 normal. No murmur, no gallop. ABDOMEN: Soft and nontender. No hepatosplenomegaly. EXTREMITIES: No edema. SKIN: Bilateral skin nodule present on the extremities consistent with diagnosis of lupus. INSTITUTION DIRECTOR: Alert and oriented x3. No focal sensory or motor deficit. LABORATORY DATA: White count 3.1, hemoglobin 12.5, hematocrit 35.3, platelet count 54,000. INR 1.4 and PT 15.4. Sodium 135 and potassium 3.5. Total bilirubin 2.1 and calcium 8.2. CURRENT MEDICATIONS: Lovenox 80 mg subcutaneous q.12, Flexeril 10 mg at bedtime, Norvasc 10 mg daily, gabapentin 100 mg b.i.d., Plaquenil 200 mg p.o. b.i.d., levothyroxine 25 mcg daily, oxycodone p.r.n., Coumadin 10 mg daily, potassium supplementation. ASSESSMENT: 1. History of deep vein thrombosis. 2. Hypercoagulable state. 3. Iron deficiency anemia. 4. Lupus. 5. Chronic back pain. 6. Hypothyroidism. PLAN: She is currently on Lovenox and Coumadin. INR is subtherapeutic. She is currently on 10 mg Coumadin. We will check the PT/INR tomorrow. If therapeutic, Lovenox can be discontinued. I discussed the compliance issue with her. She understood the discussion well. We will monitor PT/INR twice a month. She agreed with the plan. She has chronic iron deficiency anemia. Hemoglobin and hematocrit are stable now. She also has leukopenia and thrombocytopenia. Thrombocytopenia is likely related to splenomegaly. 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 If blood count continues to decline, she will need bone marrow aspiration biopsy for further evaluation. She is currently on Duragesic patch for chronic back pain and oxycodone, on levothyroxine 25 mcg daily for hypothyroidism. Entire medical record on [facility] reviewed. Imaging reviewed. Thank you Dr. Pitts for allowing us to participate in Ms. Fitzgerald care. Jacqueline Ho MD MTDD
--- NOTE | 2016-09-23 04:11 | CON ---
DATE: 09/22/2016 CONSULT SERVICE: Cardiology. REFERRING PHYSICIAN: Prosper Miller MD REASON FOR CONSULTATION: Cardiac evaluation, admitted with a chest pain. BRIEF CLINICAL HISTORY: This is a 41-year-old female with a past medical history significant for systemic lupus erythematosus, tuberous sclerosis, history of portal vein thrombosis secondary to SLE, history of esophageal varices with endoscopy, history of GI bleed in the past, history of hypothyroidism, history of chronic skin condition, on Coumadin, admitted with feeling chest pain, sharp, uneasiness. The patient walks with a cane. She said she gets dyspnea on exertion lately, but no chest pain. Yesterday, she felt chest pain, so called us, told son and who called the ambulance and brought here. Now this morning, feels a sharp pain. Denies any heaviness or something sitting on the chest. Denies any palpitations. PAST MEDICAL HISTORY: Significant for systemic lupus erythematosus, tuberous sclerosis, portal vein thrombosis secondary to SLE, portal hypertension, hypothyroidism, hypertension, vitamin D deficiency, multiple skin tags for chronic skin condition. ALLERGIES: No known drug allergy. SOCIAL HISTORY: Denies any history of alcohol abuse. FAMILY HISTORY: No significant history of cardiopulmonary or GI disease or any rheumatoid arthritis or any other rheumatologic disorder in the family. Previous cardiac workup as follows: The patient had a stress test on 08/07/2013, and that shows essentially normal myocardial perfusion study, normal wall motion, ejection fraction 55% dated 08/07/2013. The patient had echocardiography also on 08/07/2013 that shows ejection fraction arrived at 60%, diastolic function normal, emox-ob-urtlrsqv aortic regurgitation, dvrn-bv-ntqghgdk mitral regurgitation, rjfa-pw-korsyxeg tricuspid regurgitation, also systolic pressure of 42. Mild pulmonary insufficiency, possible small left to right shunt with hemodynamically insignificant small PFO. REVIEW OF SYSTEMS: As per HPI. PHYSICAL EXAMINATION: GENERAL: Height of the patient 5 feet 6 inches, weight of the patient 184, body mass index 30 kg/sq m. VITAL SIGNS: Temperature afebrile, heart rate 72, blood pressure 133/81. HEENT: PERRLA. Extraocular muscles intact. NECK: Supple. No carotid bruit or thyromegaly. CHEST: Clear to auscultation. HEART: S1,S2 regular. ABDOMEN: Soft. EXTREMITIES: Clubbing, cyanosis negative. LABORATORY DATA: EKG shows normal sinus with incomplete left bundle-branch block. Heart rate is 82. Blood workup as follows: WBC of 3.1, hemoglobin 12.5, hematocrit 35.3, and platelet count 54. Chemistry shows sodium 139, potassium 3.5, chloride 109, carbon dioxide 20, anion gap of 14, BUN 9 and creatinine of 0.9. TSH 3.99. Troponin 0.03. INR of 1.43. IMPRESSION: A 41-year-old female admitted with chest pain, though appears atypical, last stress test in 2013 was negative, history of systemic lupus erythematosus, history of tuberous sclerosis, history of portal vein thrombosis, on maintenance of Coumadin subtherapeutic, thrombocytopenia, anemia, hematocrit 35.3, hypokalemia, hypothyroidism, history of gastrointestinal bleed in the past. Last echo in 2013 shows ejection fraction of 55%, ewxy-iy-ojzrwjip mitral regurgitation, afji-as-onpkhasx tricuspid regurgitation, and huql-qs-fcerggxu aortic regurgitation. RECOMMENDATION: We will get echo and stress test, lipid profile, TSH, and hemoglobin A1c. Further recommendation after the workup. We will supplement potassium and keep n.p.o. for stress test today. Thank you Dr. Pitts for providing the opportunity in taking care of the patient. We will follow with you. aPul Cheng MD cc: Jada Pitts MD
--- NOTE | 2016-09-23 05:47 | DS ---
HISTORY OF PRESENT ILLNESS: The patient is a 41-year-old, seen and examined who came in with chest pain, left-sided radiation towards the shoulder. Denies any fever. Does complaint of having scanty cough, but no fever. No chills. The patient states she is complaint with her medication. PHYSICAL EXAMINATION: GENERAL: She is awake, alert, communicative. Chest pain is almost gone. VITAL SIGNS: She is afebrile, pulse 72, respirations 18, and blood pressure 138/81. LUNGS: Bilateral fair airflow. No rhonchi or crackle. HEART: S1 and S2 audible. ABDOMEN: Soft and nontender. No rebound. No guarding. NEUROLOGIC: She is awake and alert, able to communicate. LABORATORY DATA: PT is 15.4 and INR 1.43. Chemistry; sodium 139, potassium 3.4, chloride 109, CO2 of 20, BUN 9, creatinine 0.5 and blood sugar of 67. LFTs are within normal limits. Stress test is pending. Echocardiogram shows mildly dilated left ventricle with systolic function is mildly impaired with ejection fraction of 45%-50%, mild aortic regurgitation and mild tricuspid regurgitation. ASSESSMENT: 1. Noncardiac chest pain. 2. History of coagulopathy, status post splenic vein thrombosis, status post portal vein thrombosis. 3. History of hyperkeratosis pilaris. 4. Chronic degenerative disk disease with chronic back pain. PLAN: We will give the patient Lovenox this morning and in the evening. We will give her 10 mg of Coumadin today. If she remain chest pain free, she will be discharged tonight after second dose of Lovenox since she is subtherapeutic. She will follow with Dr. Ho to followup her PT and INR. Jada Pitts MD
[2016-09-23] MEDS: Levothyroxine 25 MCG TAB PO SCH (08:53)
[2016-09-23 08:55] LABS: HEMOGLOBIN 11.5 gm/dL (12.0-16.0); MEAN CELL VOLUME 86.9 fL (80.0-105.0); MEAN CORPUSCULAR HEMOGLOBIN 29.6 pg (25.0-35.0); MEAN CORPUSCULAR HGB CONC 34.1 g/dl (31.0-37.0); MEAN PLATELET VOLUME 11.4 fl (7.0-11.0); PLATELET COUNT 53 10^3/uL (120.0-450.0); RBC 3.88 10^6/uL (3.5-6.1); RED CELL DISTRIBUTION WIDTH 14.2 % (11.5-14.5)
[2016-09-23 09:01] LABS: INR 1.19 (0.93-1.08); PROTHROMBIN TIME 12.8 Seconds (9.9-11.8)
[2016-09-23 09:04] LABS: BLOOD UREA NITROGEN 7 mg/dL (7-21); CALCIUM 8.7 mg/dL (8.4-10.5); GFR AFRICAN-AMERICAN > 60; GFR NON-AFRICAN AMERICAN > 60
[2016-09-23 09:12] LABS: EOSINOPHIL 10 % (0.0-3.0); LYMPHOCYTE 22 % (22.0-35.0); MONOCYTE 4 % (1.0-6.0); NEUTROPHIL 64 % (50.0-70.0)
[2016-09-23] MEDS ORDERED: Aspirin 325 mg EC Tablets PO STA (09:51)
[2016-09-23] MEDS: oxyCODONE 15 mg Immediate Release Tab PO PRN ×2 (09:52→17:55)
[2016-09-23] MEDS: Pantoprazole 40 mg EC Tab PO SCH (10:06)
[2016-09-23] MEDS ORDERED: Lidocaine 2% Inj (20ml) ONE (14:30)
[2016-09-23] MEDS ORDERED: Nitroglycerin 50mg in D5W 50 MG/250 ML BOTTLE IV ONE (14:31)
[2016-09-23] MEDS ORDERED: Midazolam 2 MG/2 ML VIAL ONE (14:54)
--- NOTE | 2016-09-23 15:16 | PN ---
DATE: 09/23/2016 REASON FOR CONSULTATION AND FOLLOWUP: Cardiac evaluation of chest pain, abnormal stress test. The patient denies any chest pain, shortness of breath, or any palpitation. PHYSICAL EXAMINATION VITAL SIGNS: Temperature afebrile, heart rate 60, blood pressure 130/79. HEENT: PERRLA. Extraocular muscles are intact. NECK: Supple. No carotid bruit. No thyromegaly. CHEST: Clear to auscultation. HEART: S1 and S2 regular. ABDOMEN: Soft. EXTREMITIES: Clubbing and cyanosis negative. LABORATORY DATA: Blood workup as follows. WBC 2, hemoglobin 11.5, hematocrit 33.7, platelet count 54. PT/INR pending. Yesterday, the patient underwent a stress test that showed suspicious for ischemia, probable abnormal, shifting breast position. An artifact cannot be ruled out, but when compared for the previous stress test on 08/07/2013, the changes may be new. IMPRESSION AND PLAN: A 41-year-old female with a past medical history significant for FLE, tuberous sclerosis, thrombocytopenia, deep vein thrombosis, and esophageal varices, admitted with chest pain and underwent stress test in 2013 that was negative. The patient got yesterday 10 mg of Coumadin and Lovenox. We will hold Lovenox and check INR/PT and a stat CBC. The patient has history of long-standing history of thrombocytopenia. If the INR is below 1.5, we will do a cardiac catheterization today at 3 p.m. We will keep n.p.o tentatively for possible cardiac catheterization today. Depending upon, we will start Plavix and if the INR is elevated, we will wait till tomorrow. Further recommendation after the blood workup. The patient cardiac . Discussed with the patient and the patient agreed to proceed for cardiac catheterization and stat CBC, PT/INR. We will follow up with you. Thank you Dr. Pitts to provide us opportunity in taking care of the patient, Bindu Fitzgerald. Discussed with the patient about thrombocytopenia. The patient says there is a known history of thrombocytopenia and it runs low. followed by hematology. Paul Cheng MD
[2016-09-23] MEDS ORDERED: Bacitracin 500 Units/gm Oint Foilpak UD TOP ONE (15:34)
[2016-09-23] MEDS: Sodium Chloride 0.9% 1,000 ML IV SCH (15:57)
--- NOTE | 2016-09-23 16:53 | CARD ---
APPROVED REPORT Procedure(s) performed: Left Heart Catheterization HISTORY The patient is a 41 year-old female with a history of : most recent EF: 53%. (EF Method: RADIONUCLIDE), peripheral vascular disease, chronic lung disease, tobacco history() : The patient is a former smoker , hypertension , Hx of SLE, HX of DVT, HX of severe thrombocytopenia admitted with Chest pain and positive stress test. INDICATION The indication(s) include : positive stress test. CASE TECHNIQUE The patient was brought electively to the Cardiac Catheterization Laboratory in a fasting state and was prepped and draped in a sterile manner. The left wrist was infiltrated with 2% Lidocaine subcutaneous anesthesia. A 6 Fr Glidesheath (Radial) sheath was inserted into the left radial artery without difficulty. Coronary angiography was performed using coronary diagnostic catheters. The left coronary system was accessed and visualized with a Diagnostic ,5 Fr JL 3.5 catheter. The right coronary system was accessed and visualized with a Diagnostic ,5 Fr JR 3.5 catheter. The left ventricle was accessed and visualized with a 5 Fr Pigtail 145 (Angled) catheter. Left ventricular/Aortic Valve gradient assessed on pullback. Left ventriculogram was performed in PEÑA projection. Closure device was deployed with a Fr TR Band (Regular) without any complications. The patient tolerated the procedure well and there were no complications associated with the procedure. Vessel Analysis The patient's coronary anatomy is co-dominant. The left main coronary artery is a size vessel Two sepearate ostium for LAD and Cx. The left anterior descending artery is a large size vessel without significant stenosis. The first diagonal branch is a small size vessel without significant stenosis. The circumflex artery is a large size vessel without significant stenosis. There is a 55% stenosis in the very distal segment. Diffuselu diseased but no focal flow limiting stenosis. The first obtuse marginal branch is a large size vessel without significant stenosis. The right coronary artery is a large size vessel without significant stenosis. The right posterior descending artery is a large size vessel without significant stenosis. The right posterolateral branch is a large size vessel without significant stenosis. Left Ventricle The left ventricle is normal in size with normal contractility. There was no cardiomyopathy. The left ventricular ejection fraction is estimated to be 55%. The left ventricular end diastolic pressure is 18-20 mmHg. There was no gradient across the aortic valve upon pullback. Conclusion Non Obstructive CAD limited to Distal CX 55% diffuseky diseased but no focal flow limiting stenosis. Preserved LV Fx. EF-55%, EDP-18-20 Recommendations Aggressive Medical TherapyCardiac Risk Reduction Program Weight Loss Reduction Program Rersume Coumadin For DVT/ SLE CC; DRS. Pitts/ [place]
[2016-09-23] MEDS ORDERED: Bacitracin 500 Units/gm Oint Foilpak UD ONE (17:52)
[2016-09-23] MEDS: Potassium Chloride 10 mEq ER Tab PO SCH (17:55)
[2016-09-23] MEDS: Enoxaparin 80 mg Syringe SC SCH (17:56)
[2016-09-23 22:43] VITALS: O2SAT 99
--- NOTE | 2016-09-23 23:15 | PN ---
SUBJECTIVE: The patient is 41 years old, seen and examined, still has chest pain. Has tests done yesterday showed abnormal myocardial perfusion test, partially is reversible anteroseptal and apical defects, suspicious for ischemia, could be shifting artifacts, however the patient underwent cardiac catheterization was found to have nonocclusive coronary. On examination, still complaint of left-sided chest discomfort. She states that it catches her and that she ends up holding her breath. No diaphoresis. No fever. No chills. Scanty cough. PHYSICAL EXAMINATION: VITAL SIGNS: She is afebrile. Pulse 74, respirations 20 and blood pressure 124/77. LUNGS: Bilaterally clear airflow. No rhonchi or crackle. HEART: S1, S2, audible. ABDOMEN: Soft, nontender. No rebound. No guarding. NEUROLOGIC: She is awake and alert, communicative. EXTREMITIES: Moves all extremities. bilateral legs. No edema. LABORATORY DATA: WBC is 2.0, hemoglobin 11.5, hematocrit 33.7, platelets 250. PT 12 of 8, INR 1.19. Chemistries; sodium 142, potassium 4.7, chloride 108, PO2 26, BUN 7, creatinine 0.6, blood sugar of 80. ASSESSMENT: 1. Chest pain and nonocclusive, probably muscular. 2. History of pulmonary ebullism. 3. History of splenic thrombosis. 4. History of lupus. PLAN: I will give the patient Coumadin 10 mg today. I will give her a dose of Lovenox since she is subtherapeutic. Reexamine the patient at 10:00 a.m. Jada Pitts MD cc:
--- NOTE | 2016-09-23 23:20 | CP.PCM.PN ---
Subjective - Date & Time of Evaluation Date of Evaluation: 09/23/16 Time of Evaluation: 19:00 - Subjective Subjective: 09/23/2016 HISTORY OF PRESENT ILLNESS: Ms. Fitzgerald is a 41-year-old female admitted to the hospital with shortness of breath, palpitations, chest discomfort. She is hypercoagulable state with history of extensive DVT in the past. She has DVT in splenic vein and portal vein thrombosis. She has been on anticoagulation. Lately, she has been noncompliant with the office visit. She is on Coumadin, on admission, INR was subtherapeutic with 1.4. Denies any bleeding. Shortness of breath has improved during hospitalization. She has a cardiac stress test done today. CT chest was done in the ED, which did not show any evidence of pulmonary embolism. There was cardiomegaly and a 4.8 cm left thyroid lobe nodule. There was incidental finding of left breast lesion on the CAT scan. She also has history of lupus with skin involvement only. Cardiac stress test was abnormal. She underwent cardiac cath today. She has mild CAD. No stents placed. PAST MEDICAL HISTORY: Lupus, hypercoagulable state, portal vein thrombosis, splenic vein thrombosis, rheumatoid arthritis, thrombocytopenia, chronic anemia, iron deficiency anemia, hypothyroidism and history of breast nodule, biopsy proven, benign. PAST SURGICAL HISTORY: Appendectomy. SOCIAL HISTORY: Denies any smoking. No history of alcohol abuse. Apart from this, she lives at home with her . Family History : negative for mother, father. HOME MEDICATIONS: Amlodipine 10 mg daily, Duragesic patch 50 mcg daily, Neurontin 100 mg twice a day, Plaquenil 200 mg twice a day, Protonix 40 mg daily, Coumadin 7 mg daily and oxycodone p.r.n. REVIEW OF SYSTEMS: As per HPI. rest 12 point systems reviewed, negative. PHYSICAL EXAMINATION GENERAL: Comfortable in bed, in no acute distress. VITAL SIGNS: reviewed. HEENT: Normal. NECK: Supple. CHEST: Air entry present and equal bilaterally. No added sounds. CARDIOVASCULAR: S1 and S2 normal. No murmur, no gallop. ABDOMEN: Soft and nontender. No hepatosplenomegaly. EXTREMITIES: No edema. SKIN: Bilateral skin nodule present on the extremities consistent with diagnosis of lupus. PEDIATRIC SURGEON: Alert and oriented x3. No focal sensory or motor deficit. LABORATORY DATA: reviewed. CURRENT MEDICATIONS: Lovenox 80 mg subcutaneous q.12, Flexeril 10 mg at bedtime, Norvasc 10 mg daily, gabapentin 100 mg b.i.d., Plaquenil 200 mg p.o. b.i.d., levothyroxine 25 mcg daily, oxycodone p.r.n., Coumadin 10 mg daily, potassium supplementation. ASSESSMENT: 1. History of deep vein thrombosis. cardiac cath done today. resume coumadin. Continue lovenox BID . PT, INR with am labs. 3. Iron deficiency anemia. has been on PO iron. 4. Lupus. : skin involvement mainly. On plaqunel 5. Chronic back pain. stable. 6. Hypothyroidism : on synthyroid. 7. CV : cardiac cath showed mild CAD. 8. Thrombocytopenia : likley due to splenomegaly, chirrosis liver. 9. 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 Thank you Dr. Pitts for allowing us to participate in Ms. Amilcar mcgraw. Jacqueline Ho MD Objective - Vital Signs/Intake and Output Vital Signs (last 24 hours): Temp Pulse Resp BP Pulse Ox 98.5 F 70 20 119/78 99 09/23/16 22:42 09/23/16 22:42 09/23/16 22:42 09/23/16 22:42 09/23/16 22:42 - Medications Medications: Current Medications Amlodipine Besylate (Norvasc) 10 mg PO DAILY [facility] Last Admin: 09/23/16 17:55 Dose: 10 mg Cyclobenzaprine HCl (Flexeril) 10 mg PO HS [facility] Last Admin: 09/23/16 21:25 Dose: 10 mg Enoxaparin Sodium (Lovenox) 70 mg SC Q12H [facility] PRN Reason: Protocol Last Admin: 09/23/16 17:56 Dose: 70 mg Fentanyl (Duragesic) 1 patch TD Q72H [facility] Last Admin: 09/22/16 00:30 Dose: 1 patch Gabapentin (Neurontin) 100 mg PO BID [facility] PRN Reason: Protocol Last Admin: 09/23/16 17:55 Dose: 100 mg Hydroxychloroquine Sulfate (Plaquenil) 200 mg PO BID [facility] Last Admin: 09/23/16 17:55 Dose: 200 mg Sodium Chloride (Sodium Chloride 0.9%) 1,000 mls @ 100 mls/hr IV .Q10H [facility] Last Admin: 09/23/16 15:57 Dose: 100 mls/hr Levothyroxine Sodium (Synthroid) 25 mcg PO ACB [facility] Last Admin: 09/23/16 08:53 Dose: 25 mcg Oxycodone HCl (Oxycodone Immediate Release Tab) 15 mg PO TID PRN PRN Reason: Pain, Mild (1-3) Last Admin: 09/23/16 17:55 Dose: 15 mg Pantoprazole Sodium (Protonix Ec Tab) 40 mg PO DAILY [facility] Last Admin: 09/23/16 10:06 Dose: 40 mg Potassium Chloride (Klor-Con 10) 10 meq PO DAILY [facility] Last Admin: 09/23/16 17:55 Dose: 10 meq Warfarin Sodium (Coumadin) 10 mg PO 1800 [facility] PRN Reason: Protocol Last Admin: 09/23/16 17:56 Dose: 10 mg - Labs Labs: PT 12.8 Seconds (9.9-11.8) H 09/23/16 08:30 INR 1.19 (0.93-1.08) H 09/23/16 08:30 APTT 25.7 Seconds (23.7-30.8) 09/21/16 15:50
[2016-09-24] MEDS: Sodium Chloride 0.9% 1,000 ML IV SCH ×2 (02:15→12:27)
[2016-09-24] MEDS: Enoxaparin 80 mg Syringe SC SCH (05:23)
[2016-09-24 07:28] LABS: INR 1.6 (0.93-1.08); PROTHROMBIN TIME 17.3 Seconds (9.9-11.8)
[2016-09-24] MEDS: Levothyroxine 25 MCG TAB PO SCH (07:29)
[2016-09-24 07:41] LABS: ALB/GLOB RATIO 0.9 (1.1-1.8); ALBUMIN 3.3 g/dL (3.0-4.8); ALT/SGPT 26 U/L (7-56); AST/SGOT 23 U/L (15-39); BLOOD UREA NITROGEN 7 mg/dL (7-21); CALCIUM 8.1 mg/dL (8.4-10.5); GFR AFRICAN-AMERICAN > 60; GFR NON-AFRICAN AMERICAN > 60; MAGNESIUM 1.6 mg/dL (1.7-2.2)
[2016-09-24 07:50] LABS: HEMOGLOBIN 11.3 gm/dL (12.0-16.0); MEAN CORPUSCULAR HEMOGLOBIN 30.4 pg (25.0-35.0); MEAN CORPUSCULAR HGB CONC 34.1 g/dl (31.0-37.0); PLATELET COUNT 49 10^3/uL (120.0-450.0); RBC 3.72 10^6/uL (3.5-6.1); RED CELL DISTRIBUTION WIDTH 14.2 % (11.5-14.5)
[2016-09-24] MEDS: oxyCODONE 15 mg Immediate Release Tab PO PRN (07:53)
[2016-09-24 08:28] LABS: WHITE BLOOD COUNT 1.8 10^3/ul (4.5-11.0)
[2016-09-24] MEDS: Potassium Chloride 10 mEq ER Tab PO SCH (09:02)
[2016-09-24] MEDS: Pantoprazole 40 mg EC Tab PO SCH (09:02)
[2016-09-24 09:23] LABS: BAND 3 % (0-2); EOSINOPHIL 6 % (0.0-3.0); LYMPHOCYTE 28 % (22.0-35.0); MONOCYTE 5 % (1.0-6.0); NEUTROPHIL 58 % (50.0-70.0); PLATELET ESTIMATE LOW (NORMAL)
[2016-09-24 12:06] VITALS: RESP 16
[2016-09-24] MEDS ORDERED: Magnesium Sulfate 1 gm in D5W 1 GM/100 ML BAG IV ONE (12:39)
[2016-09-24 17:23] VITALS: BP 117/73; PULSE 81; TEMP 98.5
[2016-09-24] MEDS ORDERED: Enoxaparin 80 mg Syringe SC ONE (17:43)
--- NOTE | 2016-09-24 19:28 | DS ---
HISTORY OF PRESENT ILLNESS: The patient is a 41-year-old seen and examined and is doing well. She still have occasional chest discomfort. No nausea or vomiting. No diarrhea. No fever. No chills. Scanty cough here and there had just cardiac cath done yesterday, unremarkable, and nonocclusive coronaries. PHYSICAL EXAMINATION: VITAL SIGNS: Today, she is afebrile, pulse 83, respirations 16, and blood pressure 122/76. LUNGS: Bilateral fair airflow. No rhonchi or crackle. HEART: S1 and S2 audible. ABDOMEN: Soft and nontender. No rebound. No guarding. NEUROLOGIC: She is awake and alert, communicative. LABORATORY DATA: WBC is 11.8, hemoglobin 11.3, hematocrit 33.1, platelets 49. PT 17.3, INR 1.60. Chemistry: Sodium 141, potassium 4.3, chloride 108, CO2 of 24, BUN 7, creatinine 0.6, blood sugar of 73, magnesium is 1.6. Her cardiac cath is unremarkable. ASSESSMENT: 1. Chest pain, noncardiac, cardiac cath unremarkable. 2. History of deep vein thrombosis. 3. Iron-deficiency anemia. 4. History of lupus, currently in remission. The patient is on Plaquenil. 5. Pancytopenia. 6. Hypothyroidism. PLAN: The patient received Lovenox this morning. She will take 1 dose in the evening. She will be given 10 mg of Coumadin today. Then, she will be follow up with Dr. Ho as outpatient. She will be given magnesium sulphate 1 right before discharge. Jada Pitts MD
--- NOTE | 2016-09-25 17:16 | PN ---
REASON FOR CONSULTATION AND FOLLOWUP: Cardiac evaluation, chest pain, abnormal stress test, status post cardiac catheterization, nonobstructive coronary artery disease. The patient denies any chest pain, shortness of breath, or any palpitation, lying flat on the bed. The left radial access site looks okay. No hematoma. Good distal pulse. PHYSICAL EXAMINATION: As follows; VITAL SIGNS: Temperature afebrile, heart rate 83, blood pressure 123/76. HEENT: PERRLA. Extraocular muscles are intact. NECK: Supple. No carotid bruit. No thyromegaly. CHEST: Clear to auscultation. HEART: S1 and S2, regular. ABDOMEN: Soft. EXTREMITIES: Clubbing and cyanosis negative. LABORATORY DATA: WBC 1.8, hemoglobin 11.3, hematocrit 49, platelet count 49. Chemistry shows sodium 141, potassium 4.3, chloride 108, carbon dioxide 24, anion gap of 13, BUN 7, creatinine 0.7, total calcium 8.1, phosphorous 3.8, and magnesium 1.6. IMPRESSION: Hypomagnesemia, anemia, thrombocytopenia, leukopenia, pancytopenia, status post cardiac catheterization because of abnormal stress test and chest pain that revealed nonobstructive coronary artery disease, *------* distal circumflex 55% diffusely diseased but no focal flow-limiting stenosis noted. Preserved LV function, ejection fraction 55%. EDP was in the range of 18 to 20, history of systemic lupus erythematosus, history of deep vein thrombosis, history of tuberous sclerosis, and thrombocytopenia. RECOMMENDATION: Continue with anticoagulation, goal is to keep INR between 2. I discussed with Dr. Pitts and I discussed with Dr. Ho yesterday. Plavix was discontinued. Continue aspirin. We will discontinue enoxaparin as well and continue anticoagulation. Goal is to keep INR between 2 to 2.5. Today, INR is 1.6. We will follow with you. I will discontinue telemetry. Thank you Dr. Pitts for providing opportunity in taking care of this patient. Paul Cheng MD
== END 2016-09-24 20:30 | disposition home or self-care (01) | DRG 287 ==
LOC: ED 14:50 → ERH 21:16 → 2RNO 23:47 → OBSVTOIN 09-23 15:38 → 2RSO 09-23 16:31
PROVIDERS: ADMIT Internal Medicine; ATTEND Internal Medicine
PROC: 4A023N7 Measurement of Cardiac Sampling and Pressure, Left Heart, Percutaneous Approach (ICD-10-PCS; principal; 2016-09-23)
PROC: B2111ZZ Fluoroscopy of Multiple Coronary Arteries using Low Osmolar Contrast (ICD-10-PCS; 2016-09-23)
PROC: B2151ZZ Fluoroscopy of Left Heart using Low Osmolar Contrast (ICD-10-PCS; 2016-09-23)
DX: R07.89 Other chest pain (principal); D61.818 Other pancytopenia; M32.9 Systemic lupus erythematosus, unspecified; E83.42 Hypomagnesemia; I25.10 Atherosclerotic heart disease of native coronary artery without angina pectoris; M06.9 Rheumatoid arthritis, unspecified; E03.9 Hypothyroidism, unspecified; M51.36 Other intervertebral disc degeneration, lumbar region; D50.9 Iron deficiency anemia, unspecified; Z86.718 Personal history of other venous thrombosis and embolism; Z86.711 Personal history of pulmonary embolism; Z79.01 Long term (current) use of anticoagulants

== ENCOUNTER 2016-10-09 12:38 | Observation (INO) | payer MEDICARE, MEDICAID, OTHER ==
--- NOTE | 2016-10-09 13:06 | ED PDOC ---
Arrival/HPI - General Chief Complaint: Female Genitourinary Time Seen by Provider: 10/09/16 12:54 Historian: Patient - History of Present Illness Narrative History of Present Illness (Text): 10/09/16 13:14 Bindu Fitzgerald is a 41 year old female, whose past medical history includes portal vein thrombosis, who presents to the emergency department complaining of vaginal bleeding since this morning. Patient also notes that she finds heavy bleeding with clots. Patient notes that she is on Coumadin for portal vein thrombosis and her last LMP was 09/24/16. Patient has no other complaints at this time. PMD: Dr. Pitts Cpas: Dr. Ho Time/Duration: 24 hours Symptom Onset: Gradual Symptom Course: Unchanged Activities at Onset: Rest Context: Home Past Medical History - Provider Review Nursing Documentation Reviewed: Yes - Infectious Disease Hx of Infectious Diseases: None - Tetanus Immunization Tetanus Immunization: Unknown - Cardiac Hx Cardiac Disorders: Yes Hx Hypertension: Yes - Pulmonary Hx Respiratory Disorders: Yes Other/Comment: sob - Neurological Hx Neurological Disorder: Yes Hx Headaches: Yes - HEENT Hx HEENT Disorder: Yes (wears eye glasses) - Renal Hx Renal Disorder: No - Endocrine/Metabolic Hx Endocrine Disorders: Yes Hx Hypothyroidism: Yes - Hematological/Oncological Hx Blood Disorders: Yes (Portal Vein Thrombosis) - Integumentary Hx Dermatological Disorder: Yes (keratosis polaris) - Musculoskeletal/Rheumatological Hx Musculoskeletal Disorders: Yes Hx Falls: Yes - Gastrointestinal Hx Gastrointestinal Disorders: Yes Hx Gastroesophageal Reflux: Yes - Genitourinary/Gynecological Hx Genitourinary Disorders: No - Psychiatric Hx Psychophysiologic Disorder: No Hx Substance Use: No - Surgical History Hx Appendectomy: Yes Other/Comment: bone marrow,kidney and rt.lower abdomonal mass biopsy, L breast biopsy - Anesthesia Hx Anesthesia: Yes Hx Anesthesia Reactions: No Hx Malignant Hyperthermia: No - Suicidal Assessment Feels Threatened In Home Enviroment: No Family/Social History - Physician Review Nursing Documentation Reviewed: Yes Family/Social History: No Known Family HX Smoking Status: Never Smoked Hx Alcohol Use: No Hx Substance Use: No Hx Substance Use Treatment: No Allergies/Home Meds Allergies/Adverse Reactions: Allergies No Known Allergies Allergy (Verified 06/08/15 15:42) Home Medications: Home Meds Medication Instructions Recorded Confirmed Albuterol Sulfate [Proair Hfa] 2 puff IH DAILY 12/04/11 10/09/16 Amlodipine Besylate 10 mg PO DAILY 12/04/11 10/09/16 Budesonide/Formoterol Fumarate 2 puff IH BID 12/04/11 10/09/16 [Symbicort 80-4.5 Mcg Inhaler] Furosemide 40 mg PO DAILY 12/04/11 10/09/16 Hydroxychloroquine Sulfate 200 mg PO BID 12/04/11 10/09/16 [Hydroxychloroquine] Levothyroxine Sodium 25 mcg PO DAILY 12/04/11 10/09/16 [Levothyroxine] Pantoprazole Sodium 40 mg PO DAILY 12/04/11 10/09/16 Vitamin D 1.25 mg PO MON 12/04/11 10/09/16 Fentanyl [Duragesic] 50 mcg TD Q72 09/21/16 10/09/16 Gabapentin [Neurontin] 100 mg PO BID 09/21/16 10/09/16 Potassium Chloride [Klor-Con 10] 10 meq PO DAILY 09/21/16 10/09/16 oxyCODONE [oxyCODONE Immediate 15 mg PO TID PRN 09/21/16 10/09/16 Release Tab] Review of Systems - Review of Systems Constitutional: absent: Fevers, Night Sweats Eyes: absent: Vision Changes ENT: absent: Hearing Changes Respiratory: absent: SOB Cardiovascular: absent: Chest Pain Genitourinary Female: Vaginal Bleeding Musculoskeletal: absent: Arthralgias Skin: absent: Rash Neurological: absent: Headache Endocrine: absent: Diaphoresis Hemo/Lymphatic: absent: Adenopathy Psychiatric: absent: Depression Physical Exam Vital Signs Reviewed: Yes Vital Signs Temp Pulse Resp BP Pulse Ox 10/09/16 19:35 80 17 132/74 98 10/09/16 17:25 85 17 132/87 98 10/09/16 15:00 78 17 130/82 100 10/09/16 13:46 80 17 134/85 99 10/09/16 12:48 98.7 F 83 16 136/89 100 Temperature: Afebrile Blood Pressure: Normal Pulse: Regular Respiratory Rate: Normal Appearance: Positive for: Well-Appearing, Non-Toxic, Comfortable Pain Distress: None Mental Status: Positive for: Alert and Oriented X 3 - Systems Exam Head: Present: Atraumatic, Normocephalic Pupils: Present: PERRL Extroacular Muscles: Present: EOMI Conjunctiva: Present: Normal Mouth: Present: Moist Mucous Membranes Neck: Present: Normal Range of Motion Respiratory/Chest: Present: Clear to Auscultation, Good Air Exchange. No: Respiratory Distress, Accessory Muscle Use Cardiovascular: Present: Regular Rate and Rhythm, Normal S1, S2. No: Murmurs Abdomen: Present: Tenderness (mild epigatric tenderness) Rectal: Present: Other (mild ampunt of blood in vaginal hole; Pelvic exam peformed chaperoned by Lupillo Hedrick) Back: Present: Normal Inspection Upper Extremity: Present: Normal Inspection. No: Cyanosis, Edema Lower Extremity: Present: Normal Inspection. No: Edema Neurological: Present: GCS=15, CN II-XII Intact, Speech Normal Skin: Present: Warm, Dry, Normal Color. No: Rashes Psychiatric: Present: Alert, Oriented x 3, Normal Insight, Normal Concentration Medical Decision Making ED Course and Treatment: 10/09/16 Impression: 41 year old female complaining of vaginal bleeding since this morning. Differential Diagnosis included but are not limited to: r/o anemia Plan: -- Transvaginal US -- Urinalysis -- Labs -- Protonix and IV Fluids -- Reassess and disposition Prior Visits: Notes and results from previous visits were reviewed. Patient last seen in the ED on 09/21/16 for chest pain and palpitations that day. Patient was admitted to hospitalist care for further evaluation. Progress Notes: 10/09/16 14:53 CT abdomen and pelvis: Dictator : JEFFERY LEES MD FINDINGS: UTERUS:Measures 7.8 x 3.5 x 5.0 cm. Anteverted, normal in size and appearance. No fibroid or other mass lesion seen. ENDOMETRIUM:Measures 4.0 mm in diameter. Unremarkable. CERVIX:No cervical abnormality identified. RIGHT OVARY:Measures 2.3 x 1.5 x 2.4 cm. No solid mass. Normal flow. There is a 1.3 x 1.1 x 1.4 cm dominant follicle. LEFT OVARY:Measures 1.9 x 0.9 x 1.7 cm. No solid mass. Normal flow. FREE FLUID:No significant free fluid noted. OTHER FINDINGS:None. IMPRESSION: Normal pelvic ultrasound. 10/09/16 15:[address] Ho, who is aware and requests repeat hemoglobin level. advises to not reverse anticoagulation as h/h stable. pt later reports now upper abd pain h/o of thrombosis. ct added to eval. 10/09/16 18:[address] Tahira MD, Secondary School Teacher-power equipment technology instructor, who is aware that the patient is being admitted to [facility] for vaginal bleeding. 10/09/16 20:30 - Lab Interpretations Microbiology Results: Microbiology Results 10/09/16 17:00 Urine,Clean Catch Urine Culture - Final Gram Positive Cocci Lab Results: 10/09/16 12:55 10/09/16 12:55 Lab Results 10/09/16 13:20: Urine Color Red, Urine Appearance Cloudy, Urine pH 5.5, Ur Specific [place] >= 1.030, Urine Protein 100 H, Urine Glucose (UA) Negative, Urine Ketones Negative, Urine Blood Large H, Urine Nitrate Negative, Urine Bilirubin Negative, Urine Urobilinogen 1.0 H, Ur Leukocyte Esterase Negative, Urine RBC Tntc, Urine WBC 5 - 10, Ur Epithelial Cells 6 - 8, Urine Bacteria Mod , Urine HCG, Qual Negative 10/09/16 12:55: Sodium 143, Potassium 4.1, Chloride 104, Carbon Dioxide 30, Anion Gap 13, BUN 11, Creatinine 0.7, Est GFR ( Amer) > 60, Est GFR (Non- Af Amer) > 60, Random Glucose 68 L, Calcium 9.0, Total Bilirubin 1.7 H, AST 35, ALT 39, Alkaline Phosphatase 63, Total Protein 7.8, Albumin 3.9, Globulin 3.9, Albumin/Globulin Ratio 1.0 L, Lipase 41 10/09/16 12:55: PT 17.5 H, INR 1.62 H, APTT 27.5 10/09/16 12:55: WBC 4.5 D, RBC 4.15, Hgb 12.4, Hct 36.2, MCV 87.2, MCH 29.9, MCHC 34.3, RDW 14.7 H, Plt Count 89 L, MPV 12.0 H, Gran % 65.5, Lymph % (Auto) 22.0, [place] % (Auto) 7.6 H, Eos % (Auto) 4.5, Baso % (Auto) 0.4, Gran # 2.94, Lymph # 1.0 L, [place] # 0.3, Eos # 0.2, Baso # 0.02 I have reviewed the lab results: Yes - RAD Interpretation Radiology Orders: 10/09/16 13:21 TRANSVAGINAL [US] Stat 10/09/16 16:28 ABD & PELVIS IV CONTRAST ONLY [CT] Stat - Medication Orders Current Medication Orders: Discontinued Medications Amlodipine Besylate (Norvasc) 10 mg PO DAILY [facility] Last Admin: 10/11/16 10:30 Dose: 10 mg Cyclobenzaprine HCl (Flexeril) 10 mg PO HS [facility] Last Admin: 10/10/16 21:54 Dose: 10 mg Enoxaparin Sodium (Lovenox) 70 mg SC Q12H [facility] PRN Reason: Protocol Last Admin: 10/11/16 10:33 Dose: 70 mg Fentanyl (Duragesic) 1 patch TD Q72H [facility] Last Admin: 10/09/16 19:52 Dose: Not Given Non-Admin Reason: Patient Refused Fentanyl (Duragesic) 1 patch TD Q72H [facility] Last Admin: 10/10/16 18:27 Dose: 1 patch Furosemide (Lasix) 40 mg PO DAILY [facility] Last Admin: 10/11/16 10:31 Dose: 40 mg Gabapentin (Neurontin) 100 mg PO BID [facility] PRN Reason: Protocol Last Admin: 10/11/16 10:31 Dose: 100 mg Re-Assess: Reassess Psych Meds Document 10/11/16 11:31 DLL (Rec: 10/11/16 13:57 DLL [id number]) Reassess Psych Med Effective Hydroxychloroquine Sulfate (Plaquenil) 200 mg PO BID [facility] Last Admin: 10/11/16 10:31 Dose: 200 mg Sodium Chloride (Sodium Chloride 0.9%) 1,000 mls @ 1,000 mls/hr IV .Q1H [facility] Stop: 10/09/16 14:20 Last Admin: 10/09/16 13:45 Dose: 1,000 mls/hr Iohexol (Omnipaque 350 100 Ml) Confirm Administered Dose 350 mg .ROUTE .STK-MED ONE Stop: 10/09/16 16:58 Levothyroxine Sodium (Synthroid) 25 mcg PO ACB [facility] Last Admin: 10/11/16 08:28 Dose: 25 mcg Oxycodone HCl (Oxycodone Immediate Release Tab) 15 mg PO TID PRN PRN Reason: Pain, Mild (1-3) Last Admin: 10/10/16 15:31 Dose: 15 mg Pantoprazole Sodium (Protonix Inj) 40 mg IVP STAT [facility] Stop: 10/09/16 13:22 Last Admin: 10/09/16 13:45 Dose: 40 mg Pantoprazole Sodium (Protonix Ec Tab) 40 mg PO DAILY [facility] Last Admin: 10/11/16 10:31 Dose: 40 mg Potassium Chloride (Klor-Con 10) 10 meq PO DAILY [facility] Last Admin: 10/11/16 10:31 Dose: 10 meq Warfarin Sodium (Coumadin) 5 mg PO STAT [facility] PRN Reason: Protocol Stop: 10/09/16 22:07 Last Admin: 10/09/16 22:19 Dose: 5 mg Warfarin Sodium (Coumadin) 10 mg PO 1800 [facility] PRN Reason: Protocol Stop: 10/10/16 20:00 Last Admin: 10/10/16 17:24 Dose: 10 mg - Arielleibvicky Statement The provider has reviewed the documentation as recorded by the Lupillo Hedrick Provider Scribe Attestation: All medical record entries made by the Lupillo were at my direction and personally dictated by me. I have reviewed the chart and agree that the record accurately reflects my personal performance of the history, physical exam, medical decision making, and the department course for this patient. I have also personally directed, reviewed, and agree with the discharge instructions and disposition. Disposition/Present on Arrival - Present on Arrival Any Indicators Present on Arrival: No History of DVT/PE: No History of Uncontrolled Diabetes: No Urinary Catheter: No History of Decub. Ulcer: No History Surgical Site Infection Following: None - Disposition Have Diagnosis and Disposition been Completed?: Yes Diagnosis: Vaginal bleeding, Acquired hypercoagulable state Disposition: HOSPITALIZED Disposition Time: 07:00 Condition: STABLE
[2016-10-09] MEDS ORDERED: Sodium Chloride 0.9% 1,000 ML IV STA (13:21)
[2016-10-09 13:29] LABS: BASO # 0.02 K/mm3 (0.0-2.0); BASO % 0.4 % (0.0-3.0); EOS # 0.2 (0.0-0.7); EOS % 4.5 % (1.5-5.0); GRAN # 2.94 (1.4-6.5); GRAN % 65.5 % (50.0-68.0); HEMOGLOBIN 12.4 gm/dL (12.0-16.0); MEAN CELL VOLUME 87.2 fL (80.0-105.0); MEAN CORPUSCULAR HEMOGLOBIN 29.9 pg (25.0-35.0); MEAN CORPUSCULAR HGB CONC 34.3 g/dl (31.0-37.0); MONO # 0.3 (0.1-0.6); MONO % 7.6 % (1.0-6.0); PLATELET COUNT 89 10^3/uL (120.0-450.0); RBC 4.15 10^6/uL (3.5-6.1); RED CELL DISTRIBUTION WIDTH 14.7 % (11.5-14.5); WHITE BLOOD COUNT 4.5 10^3/ul (4.5-11.0)
[2016-10-09 13:39] LABS: ALBUMIN 3.9 g/dL (3.0-4.8); ALT/SGPT 39 U/L (7-56); AST/SGOT 35 U/L (15-39); BLOOD UREA NITROGEN 11 mg/dL (7-21); GFR AFRICAN-AMERICAN > 60; GFR NON-AFRICAN AMERICAN > 60; LIPASE 41 U/L (23-300)
[2016-10-09 13:39] LABS: PH,URINE 5.5 (4.7-8.0); URINE BILIRUBIN NEGATIVE (NEGATIVE); URINE BLOOD LARGE (NEGATIVE); URINE GLUCOSE (UA) NEGATIVE (NEGATIVE); URINE LEUKOCYTE ESTERASE NEGATIVE Leu/uL (NEGATIVE); URINE NITRATE NEGATIVE (NEGATIVE); URINE PROTEIN 100 mg/dL (<30 mg/dL)
[2016-10-09 13:41] LABS: INR 1.62 (0.93-1.08); PARTIAL THROMBOPLASTIN TIME 27.5 Seconds (23.7-30.8); PROTHROMBIN TIME 17.5 Seconds (9.9-11.8)
[2016-10-09 13:42] LABS: URINE APPEARANCE CLOUDY (CLEAR); URINE COLOR RED (YELLOW)
[2016-10-09 13:43] LABS: HCG,QUALITATIVE URINE NEGATIVE (NEGATIVE)
[2016-10-09 13:44] LABS: URINE RBC TNTC /hpf (0-2)
[2016-10-09 13:45] LABS: URINE BACTERIA MOD (NEG)
--- NOTE | 2016-10-09 14:35 | US ---
HISTORY: vaginal bleeding COMPARISON: CT abdomen and pelvis from 06/12/2016 TECHNIQUE: Transvaginal pelvic ultrasound was performed. FINDINGS: UTERUS: Measures 7.8 x 3.5 x 5.0 cm. Anteverted, normal in size and appearance. No fibroid or other mass lesion seen. ENDOMETRIUM: Measures 4.0 mm in diameter. Unremarkable. CERVIX: No cervical abnormality identified. RIGHT OVARY: Measures 2.3 x 1.5 x 2.4 cm. No solid mass. Normal flow. There is a 1.3 x 1.1 x 1.4 cm dominant follicle. LEFT OVARY: Measures 1.9 x 0.9 x 1.7 cm. No solid mass. Normal flow. FREE FLUID: No significant free fluid noted. OTHER FINDINGS: None. IMPRESSION: Normal pelvic ultrasound.
[2016-10-09] MEDS ORDERED: Iohexol 350 MG/100 ML VIAL ONE (16:57)
--- NOTE | 2016-10-09 18:07 | CT ---
PROCEDURE: CT Abdomen and Pelvis with contrast HISTORY: Upper abdominal pain. Relevant surgical history: Prior appendectomy. By history, negative test (concurrent with this examination). COMPARISON: October 09, 2016. Pelvic ultrasound reported separately TECHNIQUE: Contrast dose: 100 cc Omnipaque 350 Radiation dose: Total exam DLP = 876.11 mGy-cm. This CT exam was performed using one or more of the following dose reduction techniques: Automated exposure control, adjustment of the mA and/or kV according to patient size, and/or use of iterative reconstruction technique. FINDINGS: LOWER THORAX: Unremarkable. LIVER: Cirrhotic appearing liver. Multiple small hepatic cysts. Thrombosis of main portal vein. Reconstitution of portal venous structures throughout the abdomen. Markedly enlarged patent splenic vein. Large collateral veins in the left upper quadrant. GALLBLADDER AND BILE DUCTS: Unremarkable. PANCREAS: Unremarkable. No gross lesion or ductal dilatation. SPLEEN: Marked splenomegaly 11 x 7 x 15 cm. Dilated splenic veins. Large collaterals from the thrombosed portal vein throughout the left bibi abdomen, pelvis and paravertebral vessels. Similar findings were seen on a prior CT of the abdomen performed 06/12/2016. ADRENALS: Unremarkable. No mass. KIDNEYS AND URETERS: Unremarkable. No hydronephrosis. No solid mass. VASCULATURE: Unremarkable. No aortic aneurysm. BOWEL: Constipation without fecal impaction or obstruction. APPENDIX: Prior appendectomy. PERITONEUM: Unremarkable. No free fluid. No free air. LYMPH NODES: Unremarkable. No enlarged lymph nodes. BLADDER: Unremarkable. REPRODUCTIVE: Unremarkable. BONES: No acute fracture. OTHER FINDINGS: None. IMPRESSION: No acute findings or significant interval changes compared to 06/12/2016. Portal vein thrombosis, cirrhotic liver, splenomegaly and dilated venous varicosities throughout the abdomen and pelvis.
[2016-10-09] MEDS: oxyCODONE 15 mg Immediate Release Tab PO PRN (20:21)
[2016-10-09 21:58] LABS: BASO # 0.01 K/mm3 (0.0-2.0); BASO % 0.3 % (0.0-3.0); EOS # 0.1 (0.0-0.7); EOS % 2.6 % (1.5-5.0); GRAN # 2.37 (1.4-6.5); GRAN % 69.8 % (50.0-68.0); HEMOGLOBIN 11.6 gm/dL (12.0-16.0); LYMPH # 0.8 (1.2-3.4); LYMPH % 22.6 % (22.0-35.0); MEAN CELL VOLUME 87.3 fL (80.0-105.0); MEAN CORPUSCULAR HEMOGLOBIN 30.1 pg (25.0-35.0); MEAN CORPUSCULAR HGB CONC 34.4 g/dl (31.0-37.0); MEAN PLATELET VOLUME 10.4 fl (7.0-11.0); MONO # 0.2 (0.1-0.6); MONO % 4.7 % (1.0-6.0); PLATELET COUNT 64 10^3/uL (120.0-450.0); RBC 3.86 10^6/uL (3.5-6.1); RED CELL DISTRIBUTION WIDTH 14.7 % (11.5-14.5); WHITE BLOOD COUNT 3.4 10^3/ul (4.5-11.0)
[2016-10-10 00:09] VITALS: BMI 29.3
[2016-10-10] MEDS: oxyCODONE 15 mg Immediate Release Tab PO PRN ×2 (06:38→15:31)
[2016-10-10 06:55] LABS: HEMOGLOBIN 11.2 gm/dL (12.0-16.0); MEAN CELL VOLUME 87.4 fL (80.0-105.0); MEAN CORPUSCULAR HEMOGLOBIN 29.4 pg (25.0-35.0); MEAN CORPUSCULAR HGB CONC 33.6 g/dl (31.0-37.0); MEAN PLATELET VOLUME 11.4 fl (7.0-11.0); PLATELET COUNT 61 10^3/uL (120.0-450.0); RBC 3.81 10^6/uL (3.5-6.1); RED CELL DISTRIBUTION WIDTH 14.6 % (11.5-14.5)
[2016-10-10 07:02] LABS: INR 1.44 (0.93-1.08); PROTHROMBIN TIME 15.5 Seconds (9.9-11.8); WHITE BLOOD COUNT 2.3 10^3/ul (4.5-11.0)
[2016-10-10 07:18] LABS: ALB/GLOB RATIO 0.9 (1.1-1.8); ALBUMIN 3.2 g/dL (3.0-4.8); ALT/SGPT 35 U/L (7-56); AST/SGOT 27 U/L (15-39); BLOOD UREA NITROGEN 7 mg/dL (7-21); CALCIUM 8.5 mg/dL (8.4-10.5); GFR AFRICAN-AMERICAN > 60; GFR NON-AFRICAN AMERICAN > 60
[2016-10-10 08:16] VITALS: TEMP 98.1
[2016-10-10 08:31] LABS: EOSINOPHIL 2 % (0.0-3.0); LYMPHOCYTE 30 % (22.0-35.0); MONOCYTE 1 % (1.0-6.0); NEUTROPHIL 67 % (50.0-70.0); PLATELET ESTIMATE LOW (NORMAL)
[2016-10-10 08:32] LABS: ANISOCYTOSIS SLIGHT; POIKILOCYTOSIS SLIGHT
[2016-10-10] MEDS: Levothyroxine 25 MCG TAB PO SCH (08:37)
[2016-10-10] MEDS: Pantoprazole 40 mg EC Tab PO SCH (10:09)
[2016-10-10] MEDS: Potassium Chloride 10 mEq ER Tab PO SCH (10:10)
[2016-10-10] MEDS: Enoxaparin 80 mg Syringe SC SCH ×2 (12:51→21:53)
--- NOTE | 2016-10-10 13:53 | PN ---
SUBJECTIVE: The patient is [id number], seen and examined, lying in bed, seen to be comfortable. She states her rectal bleeding had differentially decreased and does not feel weak, dizzy, and no abdominal pain. PHYSICAL EXAMINATION: VITAL SIGNS: She is afebrile, pulse 60, respirations 20 and blood pressure 113/70. LUNGS: Bilaterally clear airflow. No rhonchi or crackle. HEART: S1, S2, audible. ABDOMEN: Soft, nontender. No rebound. No guarding. NEUROLOGIC: The patient is awake and alert, able to communicative. EXTREMITIES: Moves all extremities. LABORATORY DATA: WBC is 2.3, hemoglobin 11.2, hematocrit 33.3, and platelets of 61. PT 15.5, INR 1. 44. Chemistries; sodium 142, potassium 3.9, chloride 106, CO2 of 28, BUN 7, creatinine 0.6, and blood sugar of 75. Urinalysis shows large blood. CT scan of the abdomen and pelvis is unremarkable. ASSESSMENT: 1. vaginal bleeding, seems to be stable now, etiology unknown, could be hormonal. 2. History of coagulopathy. 3. History of splenic vein thrombosis. 4. Portal vein thrombosis. 5. Lupus. 6. Generalized osteoarthritis. 7. Thrombocytopenia. PLAN: I will continue the patient on Coumadin as recommended by Dr. Ho, I will start her on Lovenox since she is subtherapeutic, analgesic as needed. We will continue to follow CBCs and TP/INR in a.m. Awaiting BUILDING PERFORMANCE CONSULTANT input. We will continue to follow the patient closely. Jada Pitts MD
--- NOTE | 2016-10-10 23:32 | CON ---
DATE: 10/10/2016 GYNECOLOGY CONSULTATION HISTORY OF PRESENT ILLNESS: This is a 41-year-old G1, P1-0-0-1, who reports her normal menstrual period started on 09/23/2016 and lasted 7 days as normal and then she started bleeding again about 2 days ago not expecting her period and is still bleeding, although she does report it is a little dispatcher radio than it had been since she first arrived to the hospital. The patient is on Coumadin due to "a deficiency." The patient reports that she cannot be on hormonal medication and that she has history of lupus and portal vein thrombosis that was diagnosed in 2000. PAST MEDICAL HISTORY: Portal vein thrombosis diagnosed in 2000. She has history of systemic lupus and "a deficiency" that may have caused the thrombosis per the patient. She also has thyroid disorder and hypertension. MEDICATIONS: Amlodipine 10 mg p.o. daily, Flexeril 10 mg p.o. at bedtime, Lovenox 70 mg subq q.12, fentanyl one patch every 72 hours, Lasix 40 mg p.o. daily, gabapentin 100 mg p.o. b.i.d., Plaquenil 200 mg b.i.d., levothyroxine 25 mcg p.o. in the morning before breakfast, and oxycodone 50 mg p.o. t.i.d. p.r.n. for pain. She is also on pantoprazole 40 mg daily and potassium chloride 10 mEq p.o. daily. PAST OB HISTORY: In 02/2002, she had a vaginal delivery of a female infant, no complications. CERTIFIED SURGICAL TECHNICIAN HISTORY: She reports that she usually has monthly periods that each last 7 days. She denies any history of any STDs or abnormal Pap smears, withdrawal method for contraception. ALLERGIES: NO KNOWN DRUG ALLERGIES. SOCIAL HISTORY: The patient denies tobacco. She reports she drinks about 3 drinks occasionally and denies any illicit drug use. FAMILY HISTORY: The patient was adopted and does not know her family history. PHYSICAL EXAMINATION: GENERAL: The patient appears comfortable, lying in bed. VITAL SIGNS: Afebrile, stable. ABDOMEN: Soft and nontender. GENITOURINARY: Speculum exam: There is a light flow of blood from the cervix. Her cervix appears normal. Vaginal exam, there is no cervical motion tenderness. Normal, mobile and nontender uterus and no adnexal mass is palpated. LABORATORY DATA: Her white count today is 2.3, which is low; hemoglobin 11.2, on admission her hemoglobin was 12.4; and platelet count 61, on admission it was 89. IMAGING: She had her CT scan done on 10/09/2016, revealed no acute findings or significant interval changes compared to 06/12/2016, and she is noted to have portal vein thrombosis, cirrhotic liver, splenomegaly and dilated venous varicosities throughout the abdomen and pelvis. Transvaginal ultrasound done on 10/09/2016 revealed an endometrium that is only 4 mm in diameter, unremarkable. Really normal pelvic ultrasound with no significant findings. ASSESSMENT AND PLAN: This is a 41-year-old G1, P1-0-0-1 who is having a regular bleeding that started about 2 days ago, who is on Coumadin and Lovenox due to history of portal vein thrombosis. I discussed her case with Dr. Ho, special education professional who explained that she is still being worked up for the portal vein thrombosis. I asked Dr. Ho what medications she could receive in the event that she had heavy bleeding and Dr. Colvin explained that she would usually just give a monthly shot of Lupron that is about 3.75 mg and reports that, that usually works well for her patients. Darrin Hoffmann MD
[2016-10-11 06:41] LABS: INR 1.64 (0.93-1.08); PROTHROMBIN TIME 17.7 Seconds (9.9-11.8)
[2016-10-11 06:44] LABS: HEMOGLOBIN 11.3 gm/dL (12.0-16.0); MEAN CELL VOLUME 86.1 fL (80.0-105.0); MEAN CORPUSCULAR HGB CONC 33.7 g/dl (31.0-37.0); MEAN PLATELET VOLUME 12.5 fl (7.0-11.0); PLATELET COUNT 67 10^3/uL (120.0-450.0); RBC 3.89 10^6/uL (3.5-6.1); RED CELL DISTRIBUTION WIDTH 14.6 % (11.5-14.5)
[2016-10-11 07:05] LABS: WHITE BLOOD COUNT 2.3 10^3/ul (4.5-11.0)
[2016-10-11 07:57] LABS: BAND 2 % (0-2); BASOPHIL 1 % (0.0-1.0); EOSINOPHIL 2 % (0.0-3.0); LARGE PLATELETS PRESENT; LYMPHOCYTE 26 % (22.0-35.0); MONOCYTE 5 % (1.0-6.0); NEUTROPHIL 64 % (50.0-70.0)
[2016-10-11] MEDS: Levothyroxine 25 MCG TAB PO SCH (08:28)
[2016-10-11 08:32] VITALS: PULSE 72; RESP 18; O2SAT 96
[2016-10-11] MEDS: Potassium Chloride 10 mEq ER Tab PO SCH (10:31)
[2016-10-11] MEDS: Pantoprazole 40 mg EC Tab PO SCH (10:31)
[2016-10-11] MEDS: Enoxaparin 80 mg Syringe SC SCH (10:33)
[2016-10-11 10:37] VITALS: BP 108/78
--- NOTE | 2016-10-11 20:01 | DS ---
DATE OF DISCHARGE: 10/11/2016. DISCHARGE DIAGNOSES: 1. Hypercoagulable state. 2. Portal vein thrombosis. 3. Vaginal bleeding. 4. Lupus. 5. Leukopenia. HOSPITAL COURSE: The patient is a 41-year-old female admitted to the hospital with vaginal bleeding. She was passing clots, feeling dizzy. She had her regular menstruation 2 weeks ago. She is on Coumadin for deep vein thrombosis. She has chronic DVT with splenic vein thrombosis and deep vein thrombosis. She has been on Coumadin for about 10 to 12 years. She also has leukopenia likely related to lupus. She is on Plaquenil for lupus. Denies any abdominal pain. CAT scan of the abdomen and pelvis done during hospitalization was unremarkable. Pelvic ultrasound was unremarkable. She was evaluated by Dr. Siddiqui, Gynecology for vaginal bleeding. PHYSICAL EXAMINATION AT DISCHARGE: GENERAL: Comfortable in bed in no acute distress. VITAL SIGNS: Temperature 98.7, heart rate 80 per minute, blood pressure 130/70, respiratory 16 per minute. HEENT: Normal. NECK: Supple. No lymphadenopathy. CHEST: Air entry present equal bilateral. No added sound. CARDIOVASCULAR: S1 and S2 normal. No murmur and no gallop. ABDOMEN: Soft, nontender. No hepatosplenomegaly. EXTREMITIES: No edema. FAST FOOD MANAGER: Alert, oriented x3. No sensory or motor deficits. SKIN: Rash present consistent with lupus. CONDITION ON DISCHARGE: Stable. DISCHARGE DISPOSITION: Home. PLAN: She will continue Coumadin 5 mg daily. INR is subtherapeutic. She was advised to increase the Coumadin to 7 mg once vaginal bleeding stops. She was advised to contact me if vagina bleeding continues. I discussed with Dr. Hoffmann. She is not a candidate for progesterone or estrogen to stop the vaginal bleeding because of hypercoagulable state. I will consider a Lupron injection 3.75 mg monthly for abnormal vaginal bleeding. Ultrasound of the uterus is negative. There are no contraindications for Lupron. Continue home medications amlodipine 10 mg daily, Lasix 40 mg daily, Plaquenil, Coumadin 5 mg daily, Fentanyl 550 mcg every 72 hours, gabapentin 100 mg b.i.d., klor-con 10 mEq p.o. daily, oxycodone 15 mg p.o. t.i.d. All prescriptions given. Discuss with staff nurse as well as with the patient. Condition on discharge stable. Deposition discharge home. Follow with Dr. Ho in one week. Followwith Dr. Pitts in one week. time spent in preparing discharge and coordinating care 55 minutes. Jacqueline Ho MD MTDАнна
--- NOTE | 2016-10-11 22:50 | CP.PCM.CON ---
History of Present Illness - History of Present Illness History of Present Illness: Ms. Fitzgerald is well known to me from office. She was admitted with heavy bleeding per vaginum. She is on coumadin with INR of 1.6. She has history of portal vein thrombosis and splenic vein thrombosis. She has leukopenia likely related to lupus. Review of Systems - Constitutional Constitutional: Fatigue, Malaise - EENT Eyes: absent: As Per HPI, Blind Spots, Blurred Vision, Change in Vision, Decreased Night Vision, Diplopia, Discharge, Dry Eye, Exophthalmos, Floaters, Irritation, Itchy Eyes, Loss of Peripheral Vision, Pain, Photophobia, Requires Corrective Lenses, Sees Flashes, Spots in Vision, Tunnel Vision, Other Visual Disturbances, Loss of Vision, Other Ears: absent: As Per HPI, Decreased Hearing, Ear Discharge, Ear Pain, Tinnitus, Abnormal Hearing, Disequilibrium, Dizziness, Other Nose/Mouth/Throat: absent: As Per HPI, Epistaxis, Nasal Congestion, Nasal Discharge, Nasal Obstruction, Nasal Trauma, Nose Pain, Post Nasal Drip, Sinus Pain, Sinus Pressure, Bleeding Gums, Change in Voice, Dental Pain, Dry Mouth, Dysphagia, Halitosis, Hoarsness, Lip Swelling, Mouth Lesions, Mouth Pain, Odynophagia, Sore Throat, Throat Swelling, Tongue Swelling, Facial Pain, Neck Pain, Neck Mass, Other - Breasts Breasts: absent: As Per HPI, Change in Shape, Mass, Pain, Nipple Discharge, Nipple Inversion, Skin Changes, Swelling, Other - Cardiovascular Cardiovascular: absent: As Per HPI, Acrocyanosis, Chest Pain, Chest Pain at Rest , Chest Pain with Activity, Claudication, Diaphoresis, Dyspnea, Dyspnea on Exertion, Edema, Irregular Heart Rhythm, Pain Radiating to Arm/Neck/Jaw, Leg Edema, Leg Ulcers, Lightheadedness, Orthopnea, Palpitations, Paroxysmal Nocturnal Dyspnea, Pedal Edema, Radiating Pain, Rapid Heart Rate, Slow Heart Rate, Syncope, Other - Respiratory Respiratory: absent: As Per HPI, Cough, Dyspnea, Hemoptysis, Dyspnea on Exertion , Wheezing, Snoring, Stridor, Pain on Inspiration, Chest Congestion, Excessive Mucous Production, Change in Mucous Color, Pain with Coughing, Other - Gastrointestinal Gastrointestinal: absent: As Per HPI, Abdominal Pain, Belching, Bloating, Change in Bowel Habits, Change in Stool Character, Coffee Ground Emesis, Constipation, Cramping, Diarrhea, Dyspepsia, Dysphagia, Early Satiety, Excessive Flatus, Fecal Incontinence, Heartburn, Hematemesis, Hematochezia, Loose Stools, Melena, Nausea, Odynophagia, Temesmus, Vomiting, Other - Genitourinary Genitourinary: As Per HPI - Menstruation Menstruation: As Per HPI - Musculoskeletal Musculoskeletal: absent: As Per HPI, Abnormal Gait, Arthralgias, Atrophy, Back Pain, Deformity, Joint Swelling, Limited Range of Motion, Loss of Height, Muscle Cramps, Muscle Weakness, Myalgias, Neck Pain, Numbness, Radiating Pain into Limb, Stiffness, Tingling, Other - Integumentary Integumentary: As Per HPI - Neurological Neurological: absent: As Per HPI, Abnormal Gait, Abnormal Hearing, Abnormal Movements, Abnormal Speech, Behavioral Changes, Burning Sensations, Confusion, Convulsions, Disequilibrium, Dizziness, Numbness, Focal Weakness, Frequent Falls , Headaches, Lack of Coordination, Loss of Vision, Memory Loss, Paresthesias, Radicular Pain, Restless Legs, Sensory Deficit, Syncope, Tingling, Tremor, Vertigo, Weakness, Other Visual Disturbances, Other - Psychiatric Psychiatric: absent: As Per HPI, Abnormal Sleep Pattern, Anhedonia, Anxiety, Auditory Hallucinations, Behavioral Changes, Change in Appetite, Change in Libido, Confusion, Depression, Difficulty Concentrating, Hallucinations, Homicidal Ideation, Hopelessness, Irritability, Memory Loss, Mood Swings, Panic Attacks, Paranoia, Suicidal Ideation, Visual Hallucinations, Tactile Hallucinations, Other - Endocrine Endocrine: absent: As Per HPI, Change in Body Appearance, Change in Libido, Cold Intolorance, Deepening of Voice, Excessive Sweating, Fatigue, Flushing, Heat Intolorance, Increase in Ring/Shoe/Hat Size, Palpitations, Polydipsia, Polyphagia, Polyuria, Other - Hematologic/Lymphatic Hematologic: As Per HPI Past Patient History - Infectious Disease Hx of Infectious Diseases: None - Tetanus Immunizations Tetanus Immunization: Unknown - Past Social History Smoking Status: Never Smoked - CARDIAC Hx Cardiac Disorders: Yes Hx Hypertension: Yes - PULMONARY Hx Respiratory Disorders: No - NEUROLOGICAL Hx Neurological Disorder: Yes - HEENT Hx HEENT Problems: Yes (wears eye glasses) - RENAL Hx Chronic Kidney Disease: No - ENDOCRINE/METABOLIC Hx Endocrine Disorders: Yes Hx Hypothyroidism: Yes - HEMATOLOGICAL/ONCOLOGICAL Hx Blood Disorders: Yes (Portal Vein Thrombosis) - INTEGUMENTARY Hx Dermatological Problems: Yes (keratosis polaris) - MUSCULOSKELETAL/RHEUMATOLOGICAL Hx Falls: No - GASTROINTESTINAL Hx Gastrointestinal Disorders: Yes Hx Gastroesophageal Reflux: Yes - GENITOURINARY/GYNECOLOGICAL Hx Genitourinary Disorders: No - PSYCHIATRIC Hx Psychophysiologic Disorder: No - SURGICAL HISTORY Hx Appendectomy: Yes Other/Comment: bone marrow,kidney and rt.lower abdomonal mass biopsy, L breast biopsy - ANESTHESIA Hx Anesthesia: Yes Hx Anesthesia Reactions: No Hx Malignant Hyperthermia: No Meds Home Medications: Home Medication List Medication Instructions Recorded Confirmed Type RX: Warfarin [Coumadin] 5 mg PO 1800 #0 10/11/16 10/09/16 Rx Allergies/Adverse Reactions: Allergies Allergy/AdvReac Type Severity Reaction Status Date / Time No Known Allergies Allergy Verified 06/08/15 15:42 Physical Exam - Constitutional Appears: Well, Non-toxic - Head Exam Head Exam: ATRAUMATIC, NORMAL INSPECTION, NORMOCEPHALIC - Eye Exam Eye Exam: Normal appearance Pupil Exam: NORMAL ACCOMODATION - ENT Exam ENT Exam: Mucous Membranes Moist - Neck Exam Neck exam: Positive for: Normal Inspection - Respiratory Exam Respiratory Exam: Clear to Auscultation Bilateral, NORMAL BREATHING PATTERN - GI/Abdominal Exam GI & Abdominal Exam: Normal Bowel Sounds - Extremities Exam Extremities exam: Positive for: normal inspection - Back Exam Back exam: NORMAL INSPECTION - Psychiatric Exam Psychiatric exam: Normal Affect, Normal Mood - Skin Skin Exam: Normal Color, Warm Results - Vital Signs Recent Vital Signs: Last Vital Signs Temp 98.1 F 10/11/16 06:00 Pulse 72 10/11/16 06:00 Resp 18 10/11/16 06:00 BP 108/78 10/11/16 10:31 Pulse Ox 96 10/11/16 06:00 - Labs Result Diagrams: 10/11/16 06:00 10/10/16 06:00 Labs: Laboratory Results - last 24 hr 10/11/16 10/11/16 06:00 06:00 WBC 2.3 L* RBC 3.89 Hgb 11.3 L Hct 33.5 L MCV 86.1 MCH 29.0 MCHC 33.7 RDW 14.6 H Plt Count 67 L MPV 12.5 H Neutrophils % (Manual) 64 Band Neutrophils % 2 Lymphocytes % (Manual) 26 Monocytes % (Manual) 5 Eosinophils % (Manual) 2 Basophils % (Manual) 1 Large Platelets Present PT 17.7 H INR 1.64 H Assessment & Plan - Assessment and Plan (Free Text) Assessment: 1. Hypercoaguable state. 2. Chronic portal vein thrombosis, splenic vein thrombosis 3. Lupus 4. Vaginal bleeding 5. leukopenia. 6. Chronic back pain. Plan : Continue coumadin 5 mg daily. Vaginal bleeding not heavy now. if bleeding increases will hold coumadin or reverse if needed. She might benefit from Lupron monthly for vaginal bleeding. She is not a candidate for estrogen or progesteron to stop bleeding because of hypercoaguable state. leukopenia- WC stable. lupus on plaquanel. back pain : on fentanyl patch, oxycodone. Thank you Dr. Pitts for allowing us to participate in her care. - Date & Time Date: 10/10/16 Time: 10:00
--- NOTE | 2016-10-12 13:54 | HP ---
HISTORY OF PRESENT ILLNESS: The patient is 41-year-old known to me from office practice and previous admission, came to emergency room because of perfuse vaginal bleeding. She started with spotting and now passing clots. The patient denies any urinary symptoms, denies any abdominal pain, complains of feeling weak. No chest pain, no shortness of breath, no nausea, vomiting, no diarrhea. PAST MEDICAL HISTORY: She has significant past medical history of; 1. Hypertension. 2. Coagulopathy leading to borderline thrombosis. 3. Splenic vein thrombosis. 4. Generalized rheumatoid arthritis. 5. History of lupus. 6. Thrombocytopenia. 7. Iron deficiency anemia. 8. History of breast nodule, but was benign. 9. Hypothyroidism. PAST SURGICAL HISTORY: Significant for appendectomy. SOCIAL HISTORY: She lives by herself. Denies smoking, drinking or alcohol use. She is , currently disabled. ALLERGIES: SHE IS NOT ALLERGIC TO ANY MEDICATIONS. MEDICATIONS AT HOME: She is on oxycodone 15 to 80 p.r.n., Coumadin 7 mg daily, vitamin D. She is on potassium. She is on levothyroxine 25 mcg daily. She is on Plaquenil 200 twice a day, gabapentin 100 mg twice a day, Duragesic patch 50 mcg every 72 hours, Flexeril at bedtime. She is on amlodipine and albuterol. REVIEW OF SYSTEMS: Significant for just weakness and vaginal bleeding. PHYSICAL EXAMINATION GENERAL: She is awake and alert, communicative. VITAL SIGNS: She is afebrile, pulse 85, respirations 17, blood pressure 132/87. LUNGS: Bilateral fair air flow. No rhonchi or crackle. HEART: S1 and S2 audible. No murmur. ABDOMEN: Soft, nontender. No rebound, no guarding. NEUROLOGIC: The patient is awake and alert, communicative. Moves all extremities. LABORATORY DATA: WBC is 4.5, hemoglobin 12.4, hematocrit 36.2, platelet of 83. PT 17.5, INR 1.62. Chemistries; sodium 143, potassium 4.1, chloride 104, CO2 of 30, BUN 11, creatinine 0.7, blood sugar of 68, total bili 1.7, LFTs are within normal limits. Urinalysis shows large blood, RBCs too numerous to count. She has transvaginal sonogram done that is unremarkable. She has CT scan of the abdomen and pelvis done that shows no acute finding or significant internal change, portal vein thrombosis, cirrhosis of liver, splenomegaly and dilated venous varicosities throughout the abdomen and pelvis. PLAN: The patient will be placed on observation, even monitor her vaginal bleeding, monitor her CBC, CMP in the a.m. I will reach out to DrKaron should give her today's Coumadin dose or not. ADMIN ASST has been consulted and we will follow CBC, CMP in a.m. Jada Pitts MD
== END 2016-10-11 15:40 | disposition home or self-care (01) ==
LOC: ED 12:38 → ERH 18:12 → 3RSO 18:43 → ERH 18:51 → 3RNO 20:01
PROVIDERS: ADMIT Internal Medicine; ATTEND Internal Medicine
DX: N93.9 Abnormal uterine and vaginal bleeding, unspecified (principal); D68.59 Other primary thrombophilia; D69.6 Thrombocytopenia, unspecified; D72.819 Decreased white blood cell count, unspecified; D73.5 Infarction of spleen; E03.9 Hypothyroidism, unspecified; G89.29 Other chronic pain; I10 Essential (primary) hypertension; K21.9 Gastro-esophageal reflux disease without esophagitis; K62.5 Hemorrhage of anus and rectum; M06.9 Rheumatoid arthritis, unspecified; M15.9 Polyosteoarthritis, unspecified; M32.9 Systemic lupus erythematosus, unspecified; Z79.01 Long term (current) use of anticoagulants; Z79.899 Other long term (current) drug therapy; Z86.718 Personal history of other venous thrombosis and embolism; Z90.49 Acquired absence of other specified parts of digestive tract; L57.0 Actinic keratosis; R40.2412 Glasgow coma scale score 13-15, at arrival to emergency department; D50.9 Iron deficiency anemia, unspecified; E07.9 Disorder of thyroid, unspecified; M54.9 Dorsalgia, unspecified
CPT/HCPCS: 36415; 74177; 76830; 80053; 81001; 83690; 84703; 85025; 85610; 85730; 87086; 96361; 96372; 96374; 99285; C9113; G0378; J1650; J7040; Q9967

== ENCOUNTER 2017-03-20 15:38 | Inpatient (IN) | payer MEDICARE, OTHER ==
[2017-03-20 16:40] LABS: URINE BILIRUBIN SMALL (NEGATIVE); URINE BLOOD SMALL (NEGATIVE); URINE GLUCOSE (UA) NEGATIVE (NEGATIVE); URINE LEUKOCYTE ESTERASE NEGATIVE Leu/uL (NEGATIVE); URINE NITRATE NEGATIVE (NEGATIVE); URINE PROTEIN 30 mg/dL (<30 mg/dL); URINE UROBILINOGEN 0.2 E.U./dL (<1 E.U./dL)
[2017-03-20 16:44] LABS: URINE APPEARANCE SL CLOUDY (CLEAR); URINE COLOR YELLOW (YELLOW)
[2017-03-20] MEDS ORDERED: Sodium Chloride 0.9% 1,000 ML IV STA (16:46)
[2017-03-20 16:54] LABS: URINE BACTERIA SMALL (NEG); URINE WBC 0 - 2 /hpf (0-6)
[2017-03-20 17:46] LABS: BASO # 0.01 K/mm3 (0.0-2.0); BASO % 0.3 % (0.0-3.0); EOS % 0.8 % (1.5-5.0); GRAN # 3.09 (1.4-6.5); GRAN % 82.4 % (50.0-68.0); HEMOGLOBIN 12.2 g/dL (12.0-16.0); LYMPH # 0.5 (1.2-3.4); LYMPH % 12.8 % (22.0-35.0); MEAN CELL VOLUME 87.3 fl (80.0-105.0); MEAN CORPUSCULAR HEMOGLOBIN 29.3 pg (25.0-35.0); MEAN CORPUSCULAR HGB CONC 33.6 g/dl (31.0-37.0); MEAN PLATELET VOLUME 11.9 fl (7.0-11.0); MONO # 0.1 (0.1-0.6); MONO % 3.7 % (1.0-6.0); RBC 4.16 10^6/uL (3.5-6.1); RED CELL DISTRIBUTION WIDTH 14.5 % (11.5-14.5); WHITE BLOOD COUNT 3.8 10^3/ul (4.5-11.0)
[2017-03-20 17:56] LABS: ALT/SGPT 28 U/L (7-56); AST/SGOT 26 U/L (14-36); BLOOD UREA NITROGEN 9 mg/dL (7-21); GFR AFRICAN-AMERICAN > 60; GFR NON-AFRICAN AMERICAN > 60; INR 1.5 (0.93-1.08); LIPASE 35 U/L (23-300); PARTIAL THROMBOPLASTIN TIME 34.5 Seconds (25.1-36.5); PROTHROMBIN TIME 17.3 SECONDS (9.4-12.5)
--- NOTE | 2017-03-20 18:32 | CT ---
EXAM: CT Abdomen and Pelvis Without Intravenous Contrast EXAM DATE/TIME: 03/20/2017 4:40 PM CLINICAL HISTORY: 41 years old, female; Pain; Abdominal pain; ADDITIONAL HISTORY: cirrhosis, splenomegaly and varices, transformation of the portal vein TECHNIQUE: Axial computed tomography images of the abdomen and pelvis without intravenous contrast. All CT scans at this facility use one or more dose reduction techniques, viz.: automated exposure control; ma/kV adjustment per patient size (including targeted exams where dose is matched to indication; i.e. head); or iterative reconstruction technique. Coronal and sagittal reformatted images were created and reviewed. COMPARISON: CT - ABD PELVIS IV CONTRAST ONLY 2016-10-09 17:31 FINDINGS: Limitations: Evaluation of the abdomen is limited by lack of intravenous contrast. Lower thorax: Heart size is normal. There is a small hiatal hernia. Lung bases are clear ABDOMEN: Liver: Hepatic contours are nodular. There are multiple small low-attenuation lesions in the liver too small to accurately characterize most likely cysts. Gallbladder and bile ducts: Gallbladder is partially distended.There is prominence of the common duct. Pancreas: Pancreas is mildly atrophic. Spleen: Spleen remains enlarged approximately 20 cm in maximal dimension Adrenals: Adrenals are unremarkable. Kidneys and ureters: unremarkable Stomach and bowel: The stomach is partially distended. Rotation is normal. Small bowel is mildly distended with fluid and air. There is no obstruction. Terminal ileum is unremarkable. There is moderate stool in the colon. Appendix: Appendectomy PELVIS: Bladder: unremarkable Reproductive: Uterus and adnexal structures are unremarkable. ABDOMEN and PELVIS: Intraperitoneal space: There is no significant fluid.There is no free air. Bones/joints: There are no acute osseous abnormalities. Soft tissues: There is a small fat containing umbilical hernia. Vasculature: Aorta and inferior vena cava are unremarkable. There are extensive vessels in the left upper quadrant and left flank. There are multiple small collateral vessels in the ruddy hepatis. There are multiple phleboliths. Lymph nodes: There is no pathologic adenopathy. IMPRESSION: Slightly limited evaluation of the abdomen and pelvis due to lack of intravenous contrast; cirrhosis with splenomegaly and varices; no acute solid visceral abnormality; possible constipation
[2017-03-20] MEDS: Morphine 2 mg/ml ISec IVP STA ×2 (19:26→19:27)
[2017-03-20] MEDS ORDERED: HYDROmorphone 0.5 mg/0.5 ml ISec IVP STA (19:50)
--- NOTE | 2017-03-20 19:55 | ED PDOC ---
Arrival/HPI - General Chief Complaint: Abdominal Pain Time Seen by Provider: 03/20/17 16:10 Historian: Patient - History of Present Illness Narrative History of Present Illness (Text): 03/20/17 19:52 41yo female with PMHx of Lupus and hypertension who present with complaint of abdominal pain with associated nausea x 3days. She also report burning reflux pain on her epigastric area. She denies vomiting, diarrhea, constipation, sick contact, urinary symptoms, melena, hematemesis, chest pain, SOD, sick contact, any other complaint. Past Medical History - Provider Review Nursing Documentation Reviewed: Yes - Infectious Disease Hx of Infectious Diseases: None - Tetanus Immunization Tetanus Immunization: Unknown - Cardiac Hx Cardiac Disorders: Yes Hx Hypertension: Yes - Pulmonary Hx Respiratory Disorders: Yes Other/Comment: sob - Neurological Hx Neurological Disorder: Yes Hx Headaches: Yes - HEENT Hx HEENT Disorder: Yes (wears eye glasses) - Renal Hx Renal Disorder: No - Endocrine/Metabolic Hx Endocrine Disorders: Yes Hx Hypothyroidism: Yes Hx Systemic Lupus Erythematosus: Yes - Hematological/Oncological Hx Blood Disorders: Yes (Portal Vein Thrombosis) - Integumentary Hx Dermatological Disorder: Yes (keratosis polaris) - Musculoskeletal/Rheumatological Hx Musculoskeletal Disorders: Yes Hx Falls: Yes - Gastrointestinal Hx Gastrointestinal Disorders: Yes Hx Gastroesophageal Reflux: Yes - Genitourinary/Gynecological Hx Genitourinary Disorders: No - Psychiatric Hx Psychophysiologic Disorder: No Hx Substance Use: No - Surgical History Hx Appendectomy: Yes Other/Comment: bone marrow,kidney and rt.lower abdomonal mass biopsy, L breast biopsy - Anesthesia Hx Anesthesia: Yes Hx Anesthesia Reactions: No Hx Malignant Hyperthermia: No - Suicidal Assessment Feels Threatened In Home Enviroment: No Family/Social History - Physician Review Nursing Documentation Reviewed: Yes Family/Social History: Unknown Family HX Smoking Status: Never Smoked Hx Alcohol Use: No Hx Substance Use: No Hx Substance Use Treatment: No Allergies/Home Meds Allergies/Adverse Reactions: Allergies No Known Allergies Allergy (Verified 03/20/17 15:53) Home Medications: Home Meds Medication Instructions Recorded Confirmed Albuterol Sulfate [Proair Hfa] 2 puff IH DAILY 12/04/11 03/20/17 Budesonide/Formoterol Fumarate 2 puff IH BID 12/04/11 03/20/17 [Symbicort 80-4.5 Mcg Inhaler] Pantoprazole Sodium 40 mg PO DAILY 12/04/11 03/20/17 Gabapentin [Neurontin] 300 mg PO DAILY 09/21/16 03/20/17 Potassium Chloride [Klor-Con 10] 10 meq PO DAILY 09/21/16 03/20/17 oxyCODONE [oxyCODONE Immediate 15 mg PO TID PRN 09/21/16 03/20/17 Release Tab] Cholecalciferol (Vitamin D3) 1.25 mg PO MON 03/20/17 03/20/17 [Vitamin D-400] Hydroxychloroquine Sulfate 200 mg PO BID 03/20/17 03/20/17 [Plaquenil] Levothyroxine Sodium [Unithroid] 25 mcg PO DAILY 03/20/17 03/20/17 Warfarin [Coumadin] 8 mg PO 1800 03/20/17 03/20/17 amLODIPine [Norvasc] 10 mg PO DAILY 03/20/17 03/20/17 fentaNYL 50 mcg/hr [Duragesic 50 mcg TD Q72 03/20/17 03/20/17 Patch 50 mcg/hr] Review of Systems - Physician Review All systems were reviewed & negative as marked: Yes - Review of Systems Constitutional: Normal Eyes: Normal ENT: Normal Respiratory: Normal Cardiovascular: Normal Gastrointestinal: Abdominal Pain, Nausea. absent: Constipation, Diarrhea, Vomiting, Hematochezia, Hematemesis Genitourinary Female: Normal Musculoskeletal: Normal Skin: Normal Neurological: Normal Endocrine: Normal Hemo/Lymphatic: Normal Psychiatric: Normal Physical Exam Vital Signs Reviewed: Yes Vital Signs Temp Pulse Resp BP Pulse Ox 03/20/17 21:56 98.6 F 89 17 129/85 03/20/17 21:23 67 18 149/60 99 03/20/17 15:56 98.6 F 89 17 129/85 100 Temperature: Afebrile Blood Pressure: Normal Pulse: Regular Respiratory Rate: Normal Appearance: Positive for: Well-Appearing, Non-Toxic, Comfortable Pain Distress: None Mental Status: Positive for: Alert and Oriented X 3 - Systems Exam Head: Present: Atraumatic, Normocephalic Pupils: Present: PERRL Extroacular Muscles: Present: EOMI Conjunctiva: Present: Normal Mouth: Present: Moist Mucous Membranes Neck: Present: Normal Range of Motion Respiratory/Chest: Present: Clear to Auscultation, Good Air Exchange. No: Respiratory Distress, Accessory Muscle Use Cardiovascular: Present: Regular Rate and Rhythm, Normal S1, S2. No: Murmurs Abdomen: Present: Tenderness (Epigastric and suprapubic tenderness), Normal Bowel Sounds, Other (soft). No: Distention, Peritoneal Signs, Rebound, Guarding , McBurney's Point Tender, Rovsing's Sign Present Back: Present: Normal Inspection Upper Extremity: Present: Normal Inspection. No: Cyanosis, Edema Lower Extremity: Present: Normal Inspection. No: Edema Neurological: Present: GCS=15, CN II-XII Intact, Speech Normal Skin: Present: Warm, Dry, Normal Color. No: Rashes Psychiatric: Present: Alert, Oriented x 3, Normal Insight, Normal Concentration Medical Decision Making ED Course and Treatment: 03/21/17 02:30 Pt presented for stated history. Lab was nonspecific. On re evaluation s/p medication pt continued to complain of abdominal pain. Abdominal/ Pelvis CT IMPRESSION: Slightly limited evaluation of the abdomen and pelvis due to lack of intravenous contrast; cirrhosis with splenomegaly and varices; no acute solid visceral abnormality; possible constipation Pt's previous abdominal Ct from October was reviewed and current findings is similar to previous CT finding. This was DW the pt. No abdominal distention was noted to suggest Ascites in ED. Pt was admitted for intractable abdominal pain. case was DW Dr. Ho who is covering for Dr. Pitts and she accepted pt for admission. PT was placed in OBS. - Lab Interpretations Lab Results: 03/20/17 17:00 03/20/17 17:00 Lab Results 03/20/17 17:00: Sodium 141, Potassium 4.1, Chloride 108 H, Carbon Dioxide 22, Anion Gap 15, BUN 9, Creatinine 0.5 L, Est GFR ( Amer) > 60, Est GFR (Non -Af Amer) > 60, Random Glucose 84, Calcium 9.0, Total Bilirubin 1.6 H, AST 26, ALT 28, Alkaline Phosphatase 54, Total Protein 7.8, Albumin 4.0, Globulin 3.8, Albumin/Globulin Ratio 1.0 L, Lipase 35 03/20/17 17:00: PT 17.3 H, INR 1.50 H, APTT 34.5 03/20/17 17:00: WBC 3.8 L D, RBC 4.16, Hgb 12.2, Hct 36.3, MCV 87.3, MCH 29.3, MCHC 33.6, RDW 14.5, Plt Count 60 L, MPV 11.9 H, Gran % 82.4 H, Lymph % (Auto) 12.8 L, [place] % (Auto) 3.7, Eos % (Auto) 0.8 L, Baso % (Auto) 0.3, Gran # 3.09, Lymph # 0.5 L, [place] # 0.1, Eos # 0.0, Baso # 0.01 03/20/17 16:30: Urine Color Yellow, Urine Appearance Sl cloudy, Urine pH 6.0, Ur Specific [place] >= 1.030, Urine Protein 30 H, Urine Glucose (UA) Negative, Urine Ketones >=80, Urine Blood Small H, Urine Nitrate Negative, Urine Bilirubin Small H, Urine Urobilinogen 0.2, Ur Leukocyte Esterase Negative, Urine RBC 1 - 3, Urine WBC 0 - 2, Ur Epithelial Cells 6 - 8, Urine Bacteria Small - RAD Interpretation Radiology Orders: 03/20/17 16:40 ABD & PELVIS W/O PO OR IV CONT [CT] Stat - Medication Orders Current Medication Orders: Amlodipine Besylate (Norvasc) 10 mg PO DAILY [facility] Cyclobenzaprine HCl (Flexeril) 10 mg PO HS [facility] Enoxaparin Sodium (Lovenox) 100 mg SC Q12H [facility] PRN Reason: Protocol Fentanyl (Duragesic) 1 patch TD Q72 [facility] Gabapentin (Neurontin) 300 mg PO DAILY [facility] PRN Reason: Protocol Hydroxychloroquine Sulfate (Plaquenil) 200 mg PO BID [facility] Sodium Chloride (Sodium Chloride 0.9%) 1,000 mls @ 100 mls/hr IV .Q10H [facility] Last Admin: 03/20/17 21:22 Dose: 100 mls/hr eMAR Start Stop Document 03/20/17 21:22 GMD (Rec: 03/20/17 21:22 GMD [facility]) Intravenous Solution Start Date 03/20/17 Start Time 21:22 Levothyroxine Sodium (Synthroid) 25 mcg PO 0600 [facility] Budesonide/Formoterol Fumarate [Symbicort 80-4.5 Mcg Inhaler] (Home Med) 2 puff IH BID [facility] Ondansetron HCl (Zofran Inj) 4 mg IVP Q4H PRN PRN Reason: Nausea/Vomiting Oxycodone HCl (Oxycodone Immediate Release Tab) 15 mg PO TID PRN PRN Reason: Pain, Mild (1-3) Oxycodone/Acetaminophen (Percocet 5/325 Mg Tab) 1 tab PO Q4H PRN PRN Reason: Pain, moderate (4-7) Stop: 03/23/17 19:52 Last Admin: 03/21/17 01:02 Dose: 1 tab MAR Pain Assessment Document 03/21/17 01:02 (Rec: 03/21/17 01:02 [id number]) Pain Reassessment Is this a pain reassessment? No Sleep Is patient sleeping during reassessment? No Presence of Pain Presence of Pain Yes Pantoprazole Sodium (Protonix Ec Tab) 40 mg PO 0600 [facility] Potassium Chloride (Klor-Con 10) 10 meq PO DAILY [facility] Warfarin Sodium (Coumadin) 10 mg PO 1800 [facility] PRN Reason: Protocol Discontinued Medications Famotidine (Pepcid) 20 mg IVP STAT STA Stop: 03/20/17 16:47 Last Admin: 03/20/17 18:21 Dose: 20 mg IVP Administration Document 03/20/17 18:21 GMD (Rec: 03/20/17 18:21 [facility]) Charges for Administration # of IVP Administrations 1 Hydromorphone HCl (Dilaudid) 0.5 mg IVP STAT STA Stop: 03/20/17 19:51 Last Admin: 03/20/17 20:04 Dose: Not Given Non-Admin Reason: Patient Refused Sodium Chloride (Sodium Chloride 0.9%) 1,000 mls @ 1,000 mls/hr IV .Q1H [facility] Stop: 03/20/17 17:45 Last Admin: 03/20/17 17:32 Dose: 1,000 mls/hr eMAR Start Stop Document 03/20/17 17:32 GMD (Rec: 03/20/17 17:32 [facility]) Intravenous Solution Start Date 03/20/17 Start Time 17:32 End Date 03/20/17 End time 18:32 Total Infusion Time 60 Morphine Sulfate (Morphine) 2 mg IVP STAT STA Stop: 03/20/17 19:14 Last Admin: 03/20/17 19:27 Dose: Not Given Non-Admin Reason: Patient Refused Disposition/Present on Arrival - Present on Arrival Any Indicators Present on Arrival: No History of DVT/PE: No History of Uncontrolled Diabetes: No Urinary Catheter: No History of Decub. Ulcer: No History Surgical Site Infection Following: None - Disposition Have Diagnosis and Disposition been Completed?: Yes Diagnosis: Intractable abdominal pain Disposition: HOSPITALIZED Disposition Time: 19:40 Patient Plan: Admission Patient Problems: Current Active Problems Problem Status Onset Intractable abdominal pain Acute Condition: FAIR
[2017-03-20] MEDS: Oxycodone/Acetaminophen 5/325 mg Tab PO PRN (20:04)
[2017-03-20] MEDS ORDERED: Oxycodone/Acetaminophen 5/325 mg Tab ONE (20:04)
[2017-03-20] MEDS: Sodium Chloride 0.9% 1,000 ML IV SCH (21:22)
[2017-03-20 22:06] VITALS: BMI 30.7
[2017-03-20] MEDS ORDERED: Pneumococcal 23-Valent Vaccine IM ONE (22:06)
[2017-03-20] MEDS ORDERED: Influenza Vaccine 60 mcg/0.5 mL SYR (4YR UP) IM ONE (22:06)
[2017-03-21] MEDS: Oxycodone/Acetaminophen 5/325 mg Tab PO PRN ×3 (01:02→18:02)
[2017-03-21] MEDS: Levothyroxine 25 MCG TAB PO SCH (05:28)
[2017-03-21] MEDS ORDERED: Pantoprazole 40 mg EC Tab PO SCH (06:00)
[2017-03-21] MEDS: Potassium Chloride 10 mEq ER Tab PO SCH (09:58)
[2017-03-21] MEDS: Sodium Chloride 0.9% 1,000 ML IV SCH ×2 (10:03→18:00)
[2017-03-21] MEDS: FORMOTEROL FUMARATE IH SCH (10:05)
[2017-03-21] MEDS: BUDESONIDE IH SCH (10:05)
[2017-03-21] MEDS ORDERED: Enoxaparin 100 mg Syringe SC SCH (13:00)
[2017-03-21] MEDS: Apap-Butalbital-Caffeine 325-50-40mg Tab PO PRN (15:27)
--- NOTE | 2017-03-21 23:09 | HP ---
HISTORY OF PRESENT ILLNESS: Ms. Fitzgerald is a 41-year-old female. The patient is well known to me from office. She has history of lupus and portal vein thrombosis, splenic vein thrombosis, and hypercoagulable state. She is on Coumadin. Presented to the ED with epigastric pain. No nausea. No vomiting. No chest pain. She is on Plaquenil for lupus. No bleeding from any side. PAST MEDICAL HISTORY: Lupus, hypertension, chronic back pain, portal vein thrombosis, splenic vein thrombosis, and GE reflux. PAST SURGICAL HISTORY: Appendectomy. PERSONAL HISTORY: Never smoke. No history of alcohol abuse. ALLERGIES: NO KNOW DRUG ALLERGIES. HOME MEDICATIONS: ProAir 2 puff inhalation p.r.n., Neurontin 300 mg daily, Protonix 40 mg daily, oxycodone p.r.n., Plaquenil 200 mg p.o. b.i.d., levothyroxine 25 mcg daily, Coumadin 8 mg daily, amlodipine 10 mg daily, and Fentanyl 50 mcg q. 72 hours. REVIEW OF SYSTEMS: As per HPI. Rest of 12-point review of systems reviewed, negative. PHYSICAL EXAMINATION: GENERAL: Comfortable in bed, in no acute distress.. VITAL SIGNS: Temperature 98.7, heart rate is 80 per minute, respiratory rate 17 per minute, blood pressure 120/85, and oxygen saturation 99% on room air. HEENT: Normal. Oral mucosa moist. NECK: Supple. CHEST: Air entry present equal and bilateral. No added sounds. CARDIOVASCULAR: S1, S2 normal. No murmur. No gallop. ABDOMEN: Soft, nontender. No hepatosplenomegaly. EXTREMITIES: No edema. [employer]ACE [employer]OL AGENT: Alert and oriented x3. No focal sensorimotor deficit. SKIN: No petechiae. No rash. LABORATORY DATA: White count 3.8, hemoglobin 12.2, hematocrit 3.6, and platelet count 160. Sodium 141, potassium 4.1, BUN 7, creatinine 0.5, glucose 84. Amylase and lipase negative. CAT scan of the abdomen unremarkable. She had splenomegaly on the CAT scan and liver texture consistent with cirrhosis. ASSESSMENT AND PLAN: 1. Abdominal pain. 2. Leukopenia. 3. Lupus. 4. Hypercoagulable state. 5. Splenic vein thrombosis, portal vein thrombosis. CAT scan of the abdomen except hepatosplenomegaly, unremarkable. Abdominal pain subsided. She is n.p.o. overnight. We will start with oral diet and gradually advance if she tolerates. We will continue Fentanyl patch for chronic back pain. Continue Neurontin. Plaquenil 200 mg p.o. t.i.d., Synthroid 25 mcg daily, Zofran 4 mg IV q. 4 hours p.r.n. She is subtherapeutic on Coumadin. Lovenox 90 mg b.i.d. and Coumadin 10 mg daily until therapeutic discharge planning for tomorrow may be. Jacquelnie Ho MD MTDАнна
[2017-03-22] MEDS: Sodium Chloride 0.9% 1,000 ML IV SCH ×2 (05:29→17:34)
[2017-03-22] MEDS: Enoxaparin 100 mg Syringe SC SCH ×2 (05:30→17:34)
[2017-03-22] MEDS: oxyCODONE 15 mg Immediate Release Tab PO PRN ×2 (08:59→16:01)
[2017-03-22] MEDS: Potassium Chloride 10 mEq ER Tab PO SCH (08:59)
[2017-03-22] MEDS: BUDESONIDE IH SCH (09:01)
[2017-03-22] MEDS: FORMOTEROL FUMARATE IH SCH (09:01)
[2017-03-22 10:26] LABS: BASO # 0.01 K/mm3 (0.0-2.0); BASO % 0.3 % (0.0-3.0); EOS # 0.1 (0.0-0.7); EOS % 3.1 % (1.5-5.0); GRAN # 2.23 (1.4-6.5); GRAN % 68.6 % (50.0-68.0); HEMOGLOBIN 11.3 g/dL (12.0-16.0); LYMPH # 0.7 (1.2-3.4); LYMPH % 22.8 % (22.0-35.0); MEAN CELL VOLUME 87.2 fl (80.0-105.0); MEAN CORPUSCULAR HEMOGLOBIN 30.1 pg (25.0-35.0); MEAN CORPUSCULAR HGB CONC 34.6 g/dl (31.0-37.0); MEAN PLATELET VOLUME 11.2 fl (7.0-11.0); MONO # 0.2 (0.1-0.6); MONO % 5.2 % (1.0-6.0); RBC 3.75 10^6/uL (3.5-6.1); RED CELL DISTRIBUTION WIDTH 14.6 % (11.5-14.5); WHITE BLOOD COUNT 3.3 10^3/ul (4.5-11.0)
[2017-03-22 10:40] LABS: ALBUMIN 3.5 g/dL (3.0-4.8); ALT/SGPT 27 U/L (7-56); AST/SGOT 23 U/L (14-36); BLOOD UREA NITROGEN 5 mg/dL (7-21); CALCIUM 8.4 mg/dL (8.4-10.5); GFR AFRICAN-AMERICAN > 60; GFR NON-AFRICAN AMERICAN > 60; INR 1.7 (0.93-1.08); MAGNESIUM 1.5 mg/dL (1.7-2.2); PROTHROMBIN TIME 19.8 SECONDS (9.4-12.5)
[2017-03-22] MEDS: POLYETHYLENE GLYCOL 3350 17 GM/Dose PACKET PO SCH ×2 (10:40→17:33)
[2017-03-22] MEDS ORDERED: Magnesium Sulfate 2 GM in Sodium Chloride 0.9% 100 ML IVPB ONE (13:05)
[2017-03-22] MEDS: Apap-Butalbital-Caffeine 325-50-40mg Tab PO PRN (14:26)
[2017-03-22] MEDS: Magnesium Oxide 400 mg Tab UD PO SCH (17:33)
--- NOTE | 2017-03-22 23:13 | CP.PCM.PN ---
Subjective - Date & Time of Evaluation Date of Evaluation: 03/22/17 Time of Evaluation: 18:00 - Subjective Subjective: abdominal pain improved. No nausea, no vomiting. DR. Luong evaluated. She had normal cradiac cath recently.INR INR subtherapeutic. Tolerating regular diet. Objective - Vital Signs/Intake and Output Vital Signs (last 24 hours): Temp Pulse Resp BP Pulse Ox 98.3 F 86 20 112/69 99 03/22/17 16:00 03/22/17 16:00 03/22/17 16:00 03/22/17 16:00 03/22/17 16:00 - Medications Medications: Current Medications Acetaminophen/Butalbital/Caffeine (Fioricet) 1 tab PO Q8H PRN PRN Reason: Headache Last Admin: 03/22/17 14:26 Dose: 1 tab Amlodipine Besylate (Norvasc) 10 mg PO DAILY [facility] Last Admin: 03/22/17 09:00 Dose: 10 mg Cyclobenzaprine HCl (Flexeril) 10 mg PO HS [facility] Last Admin: 03/22/17 21:45 Dose: 10 mg Docusate Sodium (Colace) 100 mg PO BID [facility] Last Admin: 03/22/17 17:32 Dose: 100 mg Enoxaparin Sodium (Lovenox) 90 mg SC 0600,1800 [facility] PRN Reason: Protocol Last Admin: 03/22/17 17:34 Dose: 90 mg Fentanyl (Duragesic) 1 patch TD Q72 [facility] Last Admin: 03/21/17 09:59 Dose: 1 patch Gabapentin (Neurontin) 300 mg PO DAILY [facility] PRN Reason: Protocol Last Admin: 03/22/17 09:00 Dose: 300 mg Hydroxychloroquine Sulfate (Plaquenil) 200 mg PO BID [facility] Last Admin: 03/22/17 17:34 Dose: 200 mg Sodium Chloride (Sodium Chloride 0.9%) 1,000 mls @ 100 mls/hr IV .Q10H [facility] Last Admin: 03/22/17 17:34 Dose: 100 mls/hr Levothyroxine Sodium (Synthroid) 25 mcg PO 0600 [facility] Last Admin: 03/21/17 05:28 Dose: 25 mcg Magnesium Oxide (Mag-Ox) 400 mg PO BID [facility] Last Admin: 03/22/17 17:33 Dose: 400 mg Budesonide/Formoterol Fumarate [Symbicort 80-4.5 Mcg Inhaler] (Home Med) 2 puff IH BID [facility] Last Admin: 03/22/17 09:01 Dose: Not Given Ondansetron HCl (Zofran Inj) 4 mg IVP Q4H PRN PRN Reason: Nausea/Vomiting Last Admin: 03/21/17 09:57 Dose: 4 mg Oxycodone HCl (Oxycodone Immediate Release Tab) 15 mg PO TID PRN PRN Reason: Pain, Mild (1-3) Last Admin: 03/22/17 16:01 Dose: 15 mg Oxycodone/Acetaminophen (Percocet 5/325 Mg Tab) 1 tab PO Q4H PRN PRN Reason: Pain, moderate (4-7) Stop: 03/23/17 19:52 Last Admin: 03/21/17 18:02 Dose: 1 tab Pantoprazole Sodium (Protonix Ec Tab) 40 mg PO ACB [facility] Polyethylene Glycol (Miralax) 17 gm PO BID [facility] Last Admin: 03/22/17 17:33 Dose: 17 gm Potassium Chloride (Klor-Con 10) 10 meq PO DAILY [facility] Last Admin: 03/22/17 08:59 Dose: 10 meq Warfarin Sodium (Coumadin) 10 mg PO 1800 [facility] PRN Reason: Protocol Last Admin: 03/22/17 17:33 Dose: 10 mg - Labs Labs: PT 19.8 SECONDS (9.4-12.5) H 03/22/17 10:15 INR 1.70 (0.93-1.08) H 03/22/17 10:15 APTT 34.5 Seconds (25.1-36.5) 03/20/17 17:00 - Constitutional Appears: Well, Non-toxic - Head Exam Head Exam: ATRAUMATIC, NORMAL INSPECTION, NORMOCEPHALIC - Eye Exam Eye Exam: Normal appearance - ENT Exam ENT Exam: Mucous Membranes Moist - Respiratory Exam Respiratory Exam: Clear to Ausculation Bilateral, NORMAL BREATHING PATTERN - Cardiovascular Exam Cardiovascular Exam: REGULAR RHYTHM, +S1, +S2 - GI/Abdominal Exam GI & Abdominal Exam: Soft, Normal Bowel Sounds - Extremities Exam Extremities Exam: Normal Inspection - Back Exam Back Exam: NORMAL INSPECTION - Neurological Exam Neurological Exam: Alert, CN II-XII Intact, Normal Gait - Skin Skin Exam: Normal Color, Warm Assessment and Plan - Assessment and Plan (Free Text) Assessment: 1. Abdominal pain 2. Hypercoaguable state. 3. portal vein, splenic vein thrombosis 4. Lupus 5. anemia, leukopenia Plan : continue lovenox, coumadin. Abdominal pain decreased. Tolerating PO. blood counts stable. GI consult requested.
[2017-03-23] MEDS: Sodium Chloride 0.9% 1,000 ML IV SCH (04:11)
[2017-03-23] MEDS: Enoxaparin 100 mg Syringe SC SCH (06:07)
[2017-03-23] MEDS: Levothyroxine 25 MCG TAB PO SCH (06:07)
[2017-03-23 07:01] LABS: INR 2.82 (0.93-1.08); PROTHROMBIN TIME 33.1 SECONDS (9.4-12.5)
[2017-03-23 07:21] LABS: BLOOD UREA NITROGEN 4 mg/dL (7-21); CALCIUM 8.3 mg/dL (8.4-10.5); GFR AFRICAN-AMERICAN > 60; GFR NON-AFRICAN AMERICAN > 60; MAGNESIUM 1.6 mg/dL (1.7-2.2)
[2017-03-23] MEDS ORDERED: Pantoprazole 40 mg EC Tab PO SCH (07:30)
--- NOTE | 2017-03-23 07:30 | CON ---
DATE: 03/22/2017 LOCATION: The patient is in room 366, bed 1. REASON FOR CONSULTATION: Chest pain, abdominal pain, and hypertension. HISTORY OF PRESENT ILLNESS: The patient is a known case of lupus erythematosus, history of hypertension, back pain, deep vein thrombosis, splenic vein thrombosis, tuberous sclerosis, thrombocytopenia, and coagulopathy, admitted with a history that she is having epigastric pain and also across the lower border of the chest anteriorly, but she has marked tenderness on the area of the lower part of the chest. The patient also describing the feeling that when she swallows she think that food is stuck in the lower sternal area. She states that sometimes she feels nausea, but no vomiting, no hematemesis, no melena. The pain, which she describes, is in the lower chest since last 4 days and it is a conscious pain and also she got worst pain when she changed side to side and moved arm certain way. The patient had cardiac catheterization on 09/17/2016 for an abnormal stress test and was found to be nonobstructive coronary artery disease, only distal circumflex 50% narrowing, normal LV ejection fraction. PAST MEDICAL HISTORY: Positive for lupus erythematosus, hypertension, back pain, deep vein thrombosis, splenic vein thrombosis, tuberous sclerosis, thrombocytopenia. The patient also has appendectomy and history of GE reflux. PERSONAL HISTORY: No smoking, no drinking. ALLERGIES: DENIES ANY ALLERGIES. HOME MEDICATIONS: Including Neurontin 300 mg daily, Protonix 40 daily, oxycodone p.r.n., ProAir 2 puffs inhalation p.r.n., Plaquenil 200 mg p.o. b.i.d., levothyroxine 25 mcg p.o. daily, Coumadin 8 mg daily, amlodipine 10 mg daily, and Fentanyl 50 mcg q. 72 hours patch. FAMILY HISTORY: Not significant. REVIEW OF SYSTEMS: All the systems reviewed positive mentioned in the HPI, others were negative. PHYSICAL EXAMINATION: VITAL SIGNS: Blood pressure 134/92, respirations 20, pulse 74 and temperature 98.2. HEENT: Head is normocephalic. Eyes; pupils normal. Conjunctivae slightly pale. NECK: JVP low. Carotid equal. THORAX: AP diameter normal. CHEST: Chest wall tenderness in the area of pain on the lower chest. LUNGS: Clear. CARDIOVASCULAR: S1 and S2. No rub. ABDOMEN: Soft. Bowel sounds are normal. EXTREMITIES: No clubbing. No cyanosis. LABORATORY DATA: WBC 3.3, hemoglobin 11.3, hematocrit 32.7, and platelet 56. Prothrombin time 19.8, INR 1.70, PTT 34.5. Sodium 138, potassium 4.1, BUN 5, creatinine 0.5. Magnesium 1.5, ALT and AST are normal. Total protein and albumin are normal. IMAGING STUDIES: CAT scan of the abdomen and pelvis is suggestive of cirrhosis or splenomegaly and varices. The patient's cardiac catheterization on 09/17/2016 showed nonobstructive coronary artery disease, distal circumflex at 55% diffusely disease, but no focal flow-limiting stenosis are noted. Preserved LV function with ejection fraction 55%. EDP was in the range of 18 to 20. The patient's EKG is not done. We will order an EKG to be done. DIAGNOSES: Chest pain, musculoskeletal; abdominal pain, probably gastrointestinal region; hypertension; lupus erythematosus; hypercoagulable state; splenic vein thrombosis; portal vein thrombosis; coagulopathy, back pain; tuberous sclerosis; thrombocytopenia; leukopenia. PLAN: The patient is on warfarin 10 mg daily, Duragesic patch q.72 hours, Flexeril 10 mg at bedtime, potassium 10 mEq daily, give magnesium sulfate 2 g IV and repeat labs in the morning, Neurontin 300 mg daily, amlodipine 10 mg daily, hydroxychloroquine sulfate 200 mg b.i.d., and Protonix 40 daily. The patient is getting IV fluids, Synthroid 25 mcg daily. We will also order an EKG. If the patient need any procedure from Cardiology point of view, the patient need to go for it, any GI or any other procedure needed. We will follow with you. Paul Luong MD
[2017-03-23 09:15] VITALS: PULSE 77; RESP 18; TEMP 98; O2SAT 98
[2017-03-23] MEDS: Magnesium Oxide 400 mg Tab UD PO SCH (09:48)
[2017-03-23] MEDS: POLYETHYLENE GLYCOL 3350 17 GM/Dose PACKET PO SCH (09:48)
[2017-03-23] MEDS: Potassium Chloride 10 mEq ER Tab PO SCH (09:48)
[2017-03-23] MEDS: oxyCODONE 15 mg Immediate Release Tab PO PRN (09:49)
[2017-03-23 09:51] VITALS: BP 100/60
[2017-03-23] MEDS: FORMOTEROL FUMARATE IH SCH (10:00)
[2017-03-23] MEDS: BUDESONIDE IH SCH (10:00)
[2017-03-23] MEDS ORDERED: Magnesium Sulfate 1 gm in D5W 1 GM/100 ML BAG IVPB ONE (10:17)
--- NOTE | 2017-03-23 10:44 | CARD ---
APPROVED REPORT EKG Measurement Heart [id number] <Conclusion> Normal sinus rhythm Incomplete left bundle branch block ST & T wave abnormality, consider inferolateral ischemia Prolonged QT Abnormal ECG
[2017-03-23] MEDS ORDERED: Barium Sulfate for Susp 96% w/w 176g Bottle PR ONE (12:25)
--- NOTE | 2017-03-23 12:59 | RAD ---
HISTORY: Dysphagia. COMPARISON: None. TECHNIQUE: Single contrast esophagram was performed. FINDINGS: Patient tolerated procedure well. ESOPHAGUS: Esophageal mucosa appeared preserved. No evidence of stricture or mass lesion. HIATAL HERNIA: None demonstrated. GASTROESOPHAGEAL REFLUX: Not demonstrated. OTHER FINDINGS: None. IMPRESSION: Unremarkable esophagram.
--- NOTE | 2017-03-23 13:53 | CP.PCM.CON ---
History of Present Illness - History of Present Illness History of Present Illness: Seen and examined at the bedside earlier today, chart review. Request for GI consult is for liver cirrhosis. HPI:this is a 41-year-old female with a past medical history of lupus, portal vein thrombosis, splenic vein thrombosis and hypercoagulable state on Coumadin. The patient came to the emergency room with complaints of epigastric pain, patient reports it as a heaviness in the chest and was experiencing this for 3 days. Prior to this the patient states that she was in her usual state of health. She reports that after she eats she gets a burning sensation and feeling of heaviness, gets nauseous but no reports of vomiting. She states that she feels like something is stuck in her chest. The only thing she recalls eating prior to this complaint was chicken. She denies any history of difficulty swallowing. She does take medications for her stomach on a daily basis as she recalls. As far as liver cirrhosis she is aware that she has "spots" on her liver. She remembers having a CT scan on October/2016 which did note liver cirrhosis and splenomegaly. Denies any change in bowel habits except for constipation while here in the hospital otherwise she reports moving her bowels regularly denies any melena or bright red blood per rectum. No complaints of unintentional weight loss. This morning she had a little bit of pancreatic was able to take that down but felt as if it got stuck. No vomiting. The patient has been evaluated by cardiology, she states that she had a stress test about a year ago and it was negative. On admission she had a CT scan of abdomen and pelvis without any contrast and this showed small hiatal hernia multiple small low attenuation lesions in the liver most likely cysts,, gallbladder is partially distended and there is a prominence of the common duct. Stomach and bowel shows no obstruction there is moderate stool in the colon. The study is limited slightly due to lack of IV contrast. Past medical history: Lupus, portal vein thrombosis, splenic vein thrombosis, GERD, hypertension, keratosis Polaris, chronic back pain Surgical history: Appendectomy Social history: Denies smoking, EtOH or recreational drug use Family history: Noncontributory to this time Medications: Reviewed as per significant for Coumadin and on Lovenox Allergies: No known drug allergies ROS: Systems reviewed positive finding see HPI Past Patient History - Infectious Disease Hx of Infectious Diseases: None - Tetanus Immunizations Tetanus Immunization: Unknown - Past Social History Smoking Status: Never Smoked - CARDIAC Hx Cardiac Disorders: Yes Hx Hypertension: Yes - PULMONARY Hx Respiratory Disorders: Yes Other/Comment: sob - NEUROLOGICAL Hx Neurological Disorder: Yes - HEENT Hx HEENT Problems: Yes (wears eye glasses) - RENAL Hx Chronic Kidney Disease: No - ENDOCRINE/METABOLIC Hx Endocrine Disorders: Yes Hx Hypothyroidism: Yes Hx Systemic Lupus Erythematosus: Yes - HEMATOLOGICAL/ONCOLOGICAL Hx Blood Disorders: Yes (Portal Vein Thrombosis) - INTEGUMENTARY Hx Dermatological Problems: Yes (keratosis polaris) - MUSCULOSKELETAL/RHEUMATOLOGICAL Hx Musculoskeletal Disorders: Yes Hx Falls: Yes - GASTROINTESTINAL Hx Gastrointestinal Disorders: Yes Hx Gastroesophageal Reflux: Yes - GENITOURINARY/GYNECOLOGICAL Hx Genitourinary Disorders: No - PSYCHIATRIC Hx Psychophysiologic Disorder: No Hx Substance Use: No - SURGICAL HISTORY Hx Appendectomy: Yes Other/Comment: bone marrow,kidney and rt.lower abdomonal mass biopsy, L breast biopsy - ANESTHESIA Hx Anesthesia: Yes Hx Anesthesia Reactions: No Hx Malignant Hyperthermia: No Meds Allergies/Adverse Reactions: Allergies Allergy/AdvReac Type Severity Reaction Status Date / Time No Known Allergies Allergy Verified 03/20/17 15:53 - Medications Medications: Current Medications Acetaminophen/Butalbital/Caffeine (Fioricet) 1 tab PO Q8H PRN PRN Reason: Headache Last Admin: 03/22/17 14:26 Dose: 1 tab Amlodipine Besylate (Norvasc) 10 mg PO DAILY [facility] Last Admin: 03/23/17 09:48 Dose: 10 mg Cyclobenzaprine HCl (Flexeril) 10 mg PO HS [facility] Last Admin: 03/22/17 21:45 Dose: 10 mg Docusate Sodium (Colace) 100 mg PO BID [facility] Last Admin: 03/23/17 09:47 Dose: 100 mg Enoxaparin Sodium (Lovenox) 90 mg SC 0600,1800 [facility] PRN Reason: Protocol Last Admin: 03/23/17 06:07 Dose: 90 mg Fentanyl (Duragesic) 1 patch TD Q72 [facility] Last Admin: 03/21/17 09:59 Dose: 1 patch Gabapentin (Neurontin) 300 mg PO DAILY [facility] PRN Reason: Protocol Last Admin: 03/23/17 09:48 Dose: 300 mg Hydroxychloroquine Sulfate (Plaquenil) 200 mg PO BID [facility] Last Admin: 03/23/17 09:50 Dose: 200 mg Sodium Chloride (Sodium Chloride 0.9%) 1,000 mls @ 100 mls/hr IV .Q10H [facility] Last Admin: 03/23/17 04:11 Dose: 100 mls/hr Levothyroxine Sodium (Synthroid) 25 mcg PO 0600 [facility] Last Admin: 03/23/17 06:07 Dose: 25 mcg Magnesium Oxide (Mag-Ox) 400 mg PO BID [facility] Last Admin: 03/23/17 09:48 Dose: 400 mg Budesonide/Formoterol Fumarate [Symbicort 80-4.5 Mcg Inhaler] (Home Med) 2 puff IH BID [facility] Last Admin: 03/23/17 10:00 Dose: Not Given Ondansetron HCl (Zofran Inj) 4 mg IVP Q4H PRN PRN Reason: Nausea/Vomiting Last Admin: 03/21/17 09:57 Dose: 4 mg Oxycodone HCl (Oxycodone Immediate Release Tab) 15 mg PO TID PRN PRN Reason: Pain, Mild (1-3) Last Admin: 03/23/17 09:49 Dose: 15 mg Oxycodone/Acetaminophen (Percocet 5/325 Mg Tab) 1 tab PO Q4H PRN PRN Reason: Pain, moderate (4-7) Stop: 03/23/17 19:52 Last Admin: 03/21/17 18:02 Dose: 1 tab Pantoprazole Sodium (Protonix Ec Tab) 40 mg PO ACB [facility] Last Admin: 03/23/17 09:50 Dose: 40 mg Polyethylene Glycol (Miralax) 17 gm PO BID [facility] Last Admin: 03/23/17 09:48 Dose: 17 gm Potassium Chloride (Klor-Con 10) 10 meq PO DAILY [facility] Last Admin: 03/23/17 09:48 Dose: 10 meq Warfarin Sodium (Coumadin) 10 mg PO 1800 [facility] PRN Reason: Protocol Last Admin: 03/22/17 17:33 Dose: 10 mg Physical Exam - Constitutional Appears: No Acute Distress - Eye Exam Eye Exam: Normal appearance. absent: Scleral icterus - ENT Exam ENT Exam: Mucous Membranes Moist - Neck Exam Neck exam: Positive for: Normal Inspection - Respiratory Exam Respiratory Exam: NORMAL BREATHING PATTERN. absent: Respiratory Distress - Cardiovascular Exam Cardiovascular Exam: +S1, +S2 - GI/Abdominal Exam GI & Abdominal Exam: Normal Bowel Sounds, Soft, Tenderness (epigastric). absent : Guarding, Rebound - Extremities Exam Extremities exam: Positive for: pedal pulses present. Negative for: calf tenderness, pedal edema - Neurological Exam Neurological exam: Alert, Oriented x3 - Skin Skin Exam: Dry (history of keratosis Polaris), Warm Results - Vital Signs Recent Vital Signs: Last Vital Signs Temp 98.0 F 03/23/17 06:00 Pulse 77 03/23/17 06:00 Resp 18 03/23/17 06:00 BP 100/60 03/23/17 09:48 Pulse Ox 98 03/23/17 06:00 - Labs Result Diagrams: 03/22/17 10:15 03/23/17 05:30 Labs: Laboratory Results - last 24 hr 03/23/17 03/23/17 05:30 05:30 PT 33.1 H INR 2.82 H Sodium 140 Potassium 3.6 Chloride 109 H Carbon Dioxide 24 Anion Gap 10 BUN 4 L Creatinine 0.5 L Est GFR ( Amer) > 60 Est GFR (Non-Af Amer) > 60 Random Glucose 83 Calcium 8.3 L Phosphorus 2.9 Magnesium 1.6 L Assessment & Plan - Assessment and Plan (Free Text) Assessment: Assessment: Epigastric pain, complain of chest heaviness especially after eating differentials: gastroparesis rule out foreign body Hypercoagulable state Splenic vein thrombosis Portal vein thrombosis History of lupus GERD Plan: Nothing by mouth for now Request for esophagogram Continue PPI Continue IV F Continue bowel regimen Patient is on Lovenox and Coumadin abdominal US eval distended GB and prominent CBD Discussed w/ Dr. Ho. Thank you for this consult and for allowing us to participate in your patient's care, further recommendations based upon clinical course. Seen and discussed with Dr. Lopez who is covering Dr. Sanderson.
--- NOTE | 2017-03-23 15:31 | PN ---
DATE: 03/23/2017 The patient is in room 366, bed 1. REASON FOR CONSULTATION: Chest pain, abdominal pain, hypertension, lupus. SUBJECTIVE: The patient still has lower anterior chest pain with local tenderness, also feels epigastric discomfort; otherwise, the patient has no problems with shortness of breath or palpitations. PHYSICAL EXAMINATION: GENERAL: The patient lying comfortably in bed. VITAL SIGNS: Blood pressure 100/57, respirations 18, pulse 77, and temperature 98.0. HEENT: Head is normocephalic. Eyes, pupils normal. Conjunctivae are normal. Nose and throat normal. NECK: JVP low. Carotid equal. THORAX: AP diameter normal. CHEST: The patient has tenderness to the lower chest wall anteriorly where she complains of pain. She also has slight tenderness in the epigastrium. LUNGS: Clear. CARDIOVASCULAR: S1 and S2. EXTREMITIES: No clubbing. No cyanosis. LABORATORY DATA: WBC 3.3, hemoglobin 11.3, hematocrit 32.7, and platelet 56. PT 33.1, INR 2.82. Sodium 140, potassium 3.6, BUN 4, creatinine 0.5. Random glucose 83. Magnesium is 1.6. AST, ALT, total protein, and albumin are normal. IMAGING STUDIES: The patient had cardiac catheterization on 09/17/2016 due to abnormal stress test, and cardiac catheterization showed nonobstructive coronary artery disease. Distal circumflex had diffuse 55% narrowing without any flow-limiting stenosis. Preserved LV function with ejection fraction of 55%. EDP was in the range of 18 to 20. The patient had EKG this morning, showed regular sinus rhythm with ST-T changes. As mentioned before, the patient already had catheterization which showed nonobstructive coronary artery disease. DIAGNOSES: Chest pain, musculoskeletal; abdominal pain, probably gastrointestinal origin; hypertension; lupus erythematosus; hypercoagulable state; history of splenic vein thrombosis; portal vein thrombosis; coagulopathy, back pain; tuberous sclerosis; thrombocytopenia; leukopenia. PLAN: From cardiac point of view, the patient can go for any gastroenterology procedure if needed. The patient is on warfarin 10 mg daily. The patient also put on Lovenox 90 mg subcu b.i.d. by Dr. Ho. Magnesium oxide 400 mg b.i.d. We will give either with 1 gm IV today and repeat labs in the morning, The patient is getting IV therapy, levothyroxine 25 mcg daily, Neurontin 300 mg p.o. daily. We will follow. Paul Luong MD
--- NOTE | 2017-03-23 15:53 | US ---
HISTORY: distended GB/prominent CBD COMPARISON: None. TECHNIQUE: Sonographic evaluation of the abdomen. FINDINGS: LIVER: Measures 12.1 cm. Markedly heterogeneous echogenicity of the liver parenchyma. No discrete mass identified. No biliary ductal dilatation. Smooth contour. Increased overall echogenicity which may reflect fatty infiltration or hepatic cellular disease. GALLBLADDER: No cholelithiasis. Diffuse mural thickening up to 5 mm. No pericholecystic fluid. Negative sonographic Maciel sign. COMMON BILE DUCT: Measures 10 mm. No evidence of choledocholithiasis. PANCREAS: Unremarkable as visualized. No mass. No ductal dilatation. RIGHT KIDNEY: Measures 11.6cm. Normal echogenicity. No calculus, mass, or hydronephrosis. LEFT KIDNEY: Measures 11.9cm. Normal echogenicity. No calculus, mass, or hydronephrosis. SPLEEN: Marked splenomegaly, up to 20 cm in greatest dimension. AORTA: No aneurysmal dilatation. IVC: Unremarkable. OTHER FINDINGS: None. IMPRESSION: Heterogeneous liver without discrete mass or evidence of intrahepatic biliary dilatation. Marked splenomegaly. Nonspecific diffuse gallbladder wall thickening without evidence of cholelithiasis. Dilated common bile duct, of uncertain significance in the absence of intrahepatic biliary dilatation.
--- NOTE | 2017-03-24 02:42 | CON ---
DATE: ADDENDUM: I have personally examined this patient and reviewed all her laboratory data as well as CT scan from March 20 as well as her esophagram and ultrasound. I agree with Idalia Hatfield assessment and recommendations. The ultrasound shows some thickening of the gallbladder wall without any evidence of pericholecystic fluid. There are no gallstones. There are no liver masses, although there is increased echogenicity of the liver. X-ray of the esophagram shows no mass or stricture. Patient is to be discharged home with followup with from Dr. Sanderson in 1 week. She has been instructed to return to the hospital if she has recurrence of her abdominal pain. She does not have any abdominal pain at this time. She is to continue her anticoagulation for her hypercoagulable state with history of portal vein and splenic vein thrombosis. Gulshan Lopez MD
== END 2017-03-23 18:35 | disposition home or self-care (01) | DRG 392 ==
LOC: ED 15:38 → ERH 19:50 → 3RNO 23:03 → OBSVTOIN 03-22 16:08
PROVIDERS: ADMIT Internal Medicine; ATTEND Internal Medicine Medical Oncology
DX: R10.13 Epigastric pain (principal); D68.59 Other primary thrombophilia; D69.6 Thrombocytopenia, unspecified; Q85.1 Tuberous sclerosis; K31.84 Gastroparesis; M32.9 Systemic lupus erythematosus, unspecified; R16.1 Splenomegaly, not elsewhere classified; I10 Essential (primary) hypertension; K21.9 Gastro-esophageal reflux disease without esophagitis; E03.9 Hypothyroidism, unspecified; G89.29 Other chronic pain; M54.9 Dorsalgia, unspecified; I25.10 Atherosclerotic heart disease of native coronary artery without angina pectoris; K74.60 Unspecified cirrhosis of liver; K59.00 Constipation, unspecified; D64.9 Anemia, unspecified; Z86.718 Personal history of other venous thrombosis and embolism; Z79.01 Long term (current) use of anticoagulants

== ENCOUNTER 2017-06-11 15:08 | Emergency (ER) | payer MEDICARE ==
[2017-06-11 15:20] VITALS: BMI 29.3
--- NOTE | 2017-06-11 16:06 | ED PDOC ---
"Arrival/HPI - General Chief Complaint: Abdominal Pain Time Seen by Provider: 06/11/17 15:33 Historian: Patient - History of Present Illness Narrative History of Present Illness (Text): 06/11/17 15:43 The patient is a 41 year old female with PMHx of SLE and HTN who presents with complaint of abdominal pain with associated nausea x 2 days. She was evaluated by her PMD, Dr. Pitts today, who sent her to the ER to have another CT with contrast to assess her chronic LUQ pain. Pt reports that she ran out of Plaquinol many days ago and that's when the sharp LUQ pain started. Denies vomiting, diarrhea, constipation, sick contact, urinary symptoms, melena, hematemesis, chest pain, SOD, sick contact, any other complaint. Time/Duration: < week Symptom Onset: Sudden Symptom Course: Worsening Quality: Aching, Pressure, Cramping Severity Level: 9 Activities at Onset: Rest, Sleeping Context: Home Past Medical History - Provider Review Nursing Documentation Reviewed: Yes - Travel History Have you recently traveled outside [place] w/in the past 3 mons?: No - Infectious Disease Hx of Infectious Diseases: None - Tetanus Immunization Tetanus Immunization: Unknown - Cardiac Hx Cardiac Disorders: Yes Hx Hypertension: Yes - Pulmonary Hx Respiratory Disorders: Yes Other/Comment: sob - Neurological Hx Neurological Disorder: Yes - HEENT Hx HEENT Disorder: Yes (wears eye glasses) - Renal Hx Renal Disorder: No - Endocrine/Metabolic Hx Endocrine Disorders: Yes Hx Hypothyroidism: Yes Hx Systemic Lupus Erythematosus: Yes - Hematological/Oncological Hx Blood Disorders: Yes (Portal Vein Thrombosis) - Integumentary Hx Dermatological Disorder: Yes (keratosis polaris) - Musculoskeletal/Rheumatological Hx Musculoskeletal Disorders: Yes Hx Falls: Yes - Gastrointestinal Hx Gastrointestinal Disorders: Yes Hx Gastroesophageal Reflux: Yes - Genitourinary/Gynecological Hx Genitourinary Disorders: No - Psychiatric Hx Psychophysiologic Disorder: No Hx Substance Use: No - Surgical History Hx Appendectomy: Yes Other/Comment: bone marrow,kidney and rt.lower abdomonal mass biopsy, L breast biopsy - Anesthesia Hx Anesthesia: Yes Hx Anesthesia Reactions: No Hx Malignant Hyperthermia: No - Suicidal Assessment Feels Threatened In Home Enviroment: No Family/Social History - Physician Review Nursing Documentation Reviewed: Yes Family/Social History: Unknown Family HX Smoking Status: Never Smoked Hx Alcohol Use: No Hx Substance Use: No Hx Substance Use Treatment: No Allergies/Home Meds Allergies/Adverse Reactions: Allergies No Known Allergies Allergy (Verified 03/20/17 15:53) Home Medications: Home Meds Medication Instructions Recorded Confirmed Albuterol Sulfate [Proair Hfa] 2 puff IH DAILY 12/04/11 06/11/17 Budesonide/Formoterol Fumarate 2 puff IH BID 12/04/11 06/11/17 [Symbicort 80-4.5 Mcg Inhaler] Pantoprazole Sodium 40 mg PO DAILY 12/04/11 06/11/17 Gabapentin [Neurontin] 300 mg PO DAILY 09/21/16 06/11/17 Potassium Chloride [Klor-Con 10] 10 meq PO DAILY 09/21/16 06/11/17 oxyCODONE [oxyCODONE Immediate 15 mg PO TID PRN 09/21/16 06/11/17 Release Tab] Cholecalciferol (Vitamin D3) 1.25 mg PO MON 03/20/17 06/11/17 [Vitamin D-400] Hydroxychloroquine Sulfate 200 mg PO BID 03/20/17 06/11/17 [Plaquenil] Levothyroxine Sodium [Unithroid] 25 mcg PO DAILY 03/20/17 06/11/17 Warfarin [Coumadin] 8 mg PO 1800 03/20/17 06/11/17 amLODIPine [Norvasc] 10 mg PO DAILY 03/20/17 06/11/17 fentaNYL 50 mcg/hr [Duragesic 50 mcg TD Q72 03/20/17 06/11/17 Patch 50 mcg/hr] Review of Systems - Review of Systems Constitutional: Normal Eyes: Normal ENT: Normal Respiratory: Normal Cardiovascular: Normal Gastrointestinal: Abdominal Pain (LUQ: radiates from flank), Nausea Genitourinary Female: Normal Musculoskeletal: Normal Skin: Normal Neurological: Normal Endocrine: Normal Hemo/Lymphatic: Normal Psychiatric: Normal Physical Exam Vital Signs Reviewed: Yes Vital Signs Temp Pulse Resp BP Pulse Ox 06/11/17 21:00 98 F 70 19 120/80 99 06/11/17 19:51 98 F 75 18 123/87 99 06/11/17 16:52 81 18 133/79 98 06/11/17 15:18 98.2 F 88 18 135/87 97 Temperature: Afebrile Blood Pressure: Normal Pulse: Regular Respiratory Rate: Normal Appearance: Positive for: Well-Appearing, Non-Toxic, Comfortable Pain Distress: Moderate Mental Status: Positive for: Alert and Oriented X 3 - Systems Exam Head: Present: Atraumatic, Normocephalic Pupils: Present: PERRL Extroacular Muscles: Present: EOMI Conjunctiva: Present: Normal Mouth: Present: Moist Mucous Membranes Neck: Present: Normal Range of Motion Respiratory/Chest: Present: Clear to Auscultation, Good Air Exchange. No: Respiratory Distress, Accessory Muscle Use Cardiovascular: Present: Regular Rate and Rhythm, Normal S1, S2. No: Murmurs Abdomen: Present: Tenderness (LUQ pain), Normal Bowel Sounds. No: Distention, Peritoneal Signs, Rebound, Guarding, McBurney's Point Tender, Rovsing's Sign Present, Hernias Back: Present: Normal Inspection Upper Extremity: Present: Normal Inspection. No: Cyanosis, Edema Lower Extremity: Present: Normal Inspection. No: Edema Neurological: Present: GCS=15, CN II-XII Intact, Speech Normal Skin: Present: Warm, Dry, Normal Color. No: Rashes Psychiatric: Present: Alert, Oriented x 3, Normal Insight, Normal Concentration Medical Decision Making ED Course and Treatment: 06/11/17 19:38 Impression The patient is a 41 year old female with PMHx of SLE and HTN who presents with complaint of abdominal pain with associated nausea x 2 days. Point tender along the left costal vertebral border and LUQ; the rest of the exam is benign Plan labs, Abd & pelvis CT with PO and IV contrast (as requested by PMD, Dr. Pitts) morphine 2 mg ivp assess and dispo Progress Note labs wnl awaiting results from CT exam 2+ hours via [facility] re-evaluated pt who is resting well in bed; says her pain is starting to return 06/11/17 20:42 Requested expedited reading through [facility]; Results indicate little to no change from previous images; DW Dr. Pitts who recommended discharge home Discussed results with pt and awaiting INR level--> INR 4.12 Given negative or unchanged findings, pt may be experiencing musculoskeletal pain stemming from active trigger points or degen disc disease Consider pain management clinic and PT Advised pt to f/u with Dr. Pitts in the next 24 hrs for on-going care 06/11/17 20:47 - Lab Interpretations Lab Results: 06/11/17 16:24 06/11/17 16:24 Lab Results 06/11/17 20:30: PT 48.4 H, INR 4.12 H* 06/11/17 16:24: Sodium 140, Potassium 3.7, Chloride 101, Carbon Dioxide 30, Anion Gap 13, BUN 12, Creatinine 0.7, Est GFR ( Amer) > 60, Est GFR (Non- Af Amer) > 60, Random Glucose 94, Calcium 9.9, Total Bilirubin 1.1, AST 26, ALT 24, Alkaline Phosphatase 67, Total Protein 8.3, Albumin 4.2, Globulin 4.1, Albumin/Globulin Ratio 1.0 L 06/11/17 16:24: WBC 4.8 D, RBC 4.45, Hgb 13.2, Hct 37.7, MCV 84.7, MCH 29.7, MCHC 35.0, RDW 14.5, Plt Count 78 L, MPV 10.4, Gran % 75.3 H, Lymph % (Auto) 17.5 L, [place] % (Auto) 5.5, Eos % (Auto) 1.5, Baso % (Auto) 0.2, Gran # 3.58, Lymph # (Auto) 0.8 L, [place] # (Auto) 0.3, Eos # (Auto) 0.1, Baso # (Auto) 0.01 06/11/17 16:20: Urine Color Yellow, Urine Appearance Slight-cloudy, Urine pH 7.0 , Ur Specific [place] 1.015, Urine Protein Negative, Urine Glucose (UA) Negative , Urine Ketones Trace H, Urine Blood Small H, Urine Nitrate Negative, Urine Bilirubin Negative, Urine Urobilinogen 0.2, Ur Leukocyte Esterase Trace H, Urine RBC 0 - 2, Urine WBC 0 - 2, Ur Epithelial Cells 1 - 3, Urine Bacteria Small I have reviewed the lab results: Yes (INR 4.12, PT 48.4, Tot bili 1.1) Interpretation: No sign. chg./baseline - RAD Interpretation Narrative RAD Interpretations (Text): 06/11/17 20:07 EXAM: CT Abdomen and Pelvis With Intravenous Contrast EXAM DATE/TIME: 06/11/2017 4:06 PM CLINICAL HISTORY: The patient age is 41 years old and is female; Pain; Abdominal pain; Localized; Left; Additional info: q pain Facility exam id and description: Ct_[id number] abd pelvis po iv contrast TECHNIQUE: Axial computed tomography images of the abdomen and pelvis with intravenous contrast. All CT scans at this facility use one or more dose reduction techniques, viz.: automated exposure control; ma/kV adjustment per patient size (including targeted exams where dose is matched to indication; i.e. head); or iterative reconstruction technique. Coronal and sagittal reformatted images were created and reviewed. CONTRAST: 100 mL of OMNI administered intravenously. COMPARISON: CT - ABD PELVIS W/O PO OR IV CONT 2017-03-20 17:14 FINDINGS: Lung bases: Mild bibasilar atelectatic changes are visualized. ABDOMEN: Liver: There is mild increased nodularity of the hepatic contour, consistent with cirrhosis. Several small hypodense hepatic lesions are again visualized, too small to characterize further. The largest lesion is visualized within the right hepatic lobe measuring 0.7 x 0.6 cm, which is stable. There is mild intrahepatic biliary dilatation. Gallbladder and bile ducts: No discrete gallstones are visualized. Pancreas: Normal contour, without acute peripancreatic stranding. Spleen: Splenomegaly is again visualized. The spleen measures 15.5 cm in the AP dimension. Adrenals: No mass. RICHELLE ERIK | Final Radiology Report CONFIDENTIALITY STATEMENT This report is intended only for use by the referring physician, and only in accordance with law. If you received this in error, call [phone]. Page 2 of 2 Kidneys and ureters: No hydronephrosis. No solid mass. Stomach and bowel: Moderate fecal material is identified within the colon. Appendix: The appendix is not visualized. PELVIS: Bladder: No mass. Reproductive: Unremarkable as visualized. ABDOMEN and PELVIS: Intraperitoneal space: No free air. Anterior to the right psoas muscle, there is a hypodense fluid collection measuring 3.6 x 2.0 x 3.9 cm. This is stable compared to the prior study. Abscess is within the differential, but considered less likely due to the stability compared to the prior study. Bones/joints: No acute fracture. Soft tissues: There is mild herniation of fat into the umbilicus. Vasculature: Prominent varices are visualized within the left side of the abdomen and upper abdomen, similar to the prior study. Lymph nodes: No enlarged lymph nodes. IMPRESSION: 1. There is mild increased nodularity of the hepatic contour, consistent with cirrhosis. Several small hypodense hepatic lesions are again visualized, too small to characterize further. The largest lesion is visualized within the right hepatic lobe measuring 0.7 x 0.6 cm, which is stable. 2. There is mild intrahepatic biliary dilatation. Correlation with serum bilirubin is recommended. 3. Prominent varices are visualized within the left side of the abdomen and upper abdomen, similar to the prior study. 4. Splenomegaly is again visualized. 5. Anterior to the right psoas muscle, there is a hypodense fluid collection measuring 3.6 x 2.0 x 3.9 cm. This is stable compared to the prior study. 6. Incidental/non-acute findings are described above Radiology Orders: 06/11/17 16:06 ABDOMEN & PELVIS [ABD PELVIS PO & IV CONTRAST] [CT] Stat - Medication Orders Current Medication Orders: Discontinued Medications Morphine Sulfate (Morphine) 2 mg IVP STAT STA Stop: 06/11/17 16:11 Last Admin: 06/11/17 16:48 Dose: 2 mg IVP Administration Document 06/11/17 16:48 LA (Rec: 06/11/17 16:48 LA [id number]) Charges for Administration # of IVP Administrations 1 Morphine Sulfate (Morphine) 2 mg IVP STAT STA Stop: 06/11/17 20:12 Last Admin: 06/11/17 20:18 Dose: 2 mg IVP Administration Document 06/11/17 20:18 LA (Rec: 06/11/17 20:18 LA [id number]) Charges for Administration # of IVP Administrations 1 Disposition/Present on Arrival - Present on Arrival Any Indicators Present on Arrival: Yes History of DVT/PE: No History of Uncontrolled Diabetes: No Urinary Catheter: No History Surgical Site Infection Following: None - Disposition Have Diagnosis and Disposition been Completed?: Yes Diagnosis: Nonspecific abdominal pain, Chronic pain Disposition: HOME/ ROUTINE Disposition Time: 21:08 Patient Plan: Discharge Condition: STABLE Discharge Instructions (ExitCare): Chronic Pain (DC), Acute Abdomen (Belly Pain ) Additional Instructions: Erik, thank you for letting us take care of you today. Your provider was CARRINGTON Sanchez. You were treated for abdominal pain. The emergency medical care you received today was directed at your acute symptoms. If you were prescribed any medication, please fill it and take as directed. It may take several days for your symptoms to resolve. Return to the Emergency Department if your symptoms worsen, do not improve, or if you have any other problems. Please contact your doctor or call one of the physicians/clinics you have been referred to that are listed on the Patient Visit Information form that is included in your discharge packet. Bring any paperwork you were given at discharge with you along with any medications you are taking to your follow up visit. Our treatment cannot replace ongoing medical care by a primary care provider (PCP) outside of the emergency department. Thank you for allowing the [facility] team to be part of your care today. If you had a blood, urine, or wound culture: It will take several days for the results, if any change in treatment is needed we will contact you. Referrals: Jada Pitts MD [Primary Care Provider] - Follow up with primary Forms: [employer] ([place])"
[2017-06-11] MEDS ORDERED: Morphine 2 mg/2 mL syringe IVP STA ×2 (16:10→20:11)
[2017-06-11 16:32] LABS: BASO # 0.01 K/mm3 (0.0-2.0); BASO % 0.2 % (0.0-3.0); EOS # 0.1 (0.0-0.7); EOS % 1.5 % (1.5-5.0); GRAN # 3.58 (1.4-6.5); GRAN % 75.3 % (50.0-68.0); HEMOGLOBIN 13.2 g/dL (12.0-16.0); LYMPH # 0.8 (1.2-3.4); LYMPH % 17.5 % (22.0-35.0); MEAN CELL VOLUME 84.7 fl (80.0-105.0); MEAN CORPUSCULAR HEMOGLOBIN 29.7 pg (25.0-35.0); MEAN PLATELET VOLUME 10.4 fl (7.0-11.0); MONO # 0.3 (0.1-0.6); MONO % 5.5 % (1.0-6.0); RBC 4.45 10^6/uL (3.5-6.1); RED CELL DISTRIBUTION WIDTH 14.5 % (11.5-14.5); WHITE BLOOD COUNT 4.8 10^3/ul (4.5-11.0)
[2017-06-11 16:39] LABS: ALBUMIN 4.2 g/dL (3.0-4.8); ALT/SGPT 24 U/L (7-56); AST/SGOT 26 U/L (14-36); BLOOD UREA NITROGEN 12 mg/dL (7-21); CALCIUM 9.9 mg/dL (8.4-10.5); GFR AFRICAN-AMERICAN > 60; GFR NON-AFRICAN AMERICAN > 60
[2017-06-11 16:40] LABS: URINE APPEARANCE SLIGHT-CLOUDY (CLEAR); URINE BILIRUBIN NEGATIVE (NEGATIVE); URINE BLOOD SMALL (NEGATIVE); URINE COLOR YELLOW (YELLOW); URINE GLUCOSE (UA) NEGATIVE (NEGATIVE); URINE LEUKOCYTE ESTERASE TRACE Leu/uL (NEGATIVE); URINE PROTEIN NEGATIVE mg/dL (<30 mg/dL); URINE UROBILINOGEN 0.2 E.U./dL (<1 E.U./dL)
[2017-06-11 16:43] LABS: URINE RBC 0 - 2 /hpf (0-2); URINE WBC 0 - 2 /hpf (0-6)
[2017-06-11 16:44] LABS: URINE BACTERIA SMALL (NEG)
[2017-06-11] MEDS ORDERED: Iohexol 240 (50 ml) ONE (16:53)
[2017-06-11] MEDS ORDERED: Iohexol 350 MG/100 ML VIAL ONE (18:10)
[2017-06-11 19:52] VITALS: TEMP 98; O2SAT 99
--- NOTE | 2017-06-11 20:01 | CT ---
EXAM: CT Abdomen and Pelvis With Intravenous Contrast EXAM DATE/TIME: 06/11/2017 4:06 PM CLINICAL HISTORY: The patient age is 41 years old and is female; Pain; Abdominal pain; Localized; Left; Additional info: Luq pain Facility exam id and description: Ct abdpelc abd pelvis po iv contrast TECHNIQUE: Axial computed tomography images of the abdomen and pelvis with intravenous contrast. All CT scans at this facility use one or more dose reduction techniques, viz.: automated exposure control; ma/kV adjustment per patient size (including targeted exams where dose is matched to indication; i.e. head); or iterative reconstruction technique. Coronal and sagittal reformatted images were created and reviewed. CONTRAST: 100 mL of OMNI administered intravenously. COMPARISON: CT - ABD PELVIS W/O PO OR IV CONT 2017-03-20 17:14 FINDINGS: Lung bases: Mild bibasilar atelectatic changes are visualized. ABDOMEN: Liver: There is mild increased nodularity of the hepatic contour, consistent with cirrhosis. Several small hypodense hepatic lesions are again visualized, too small to characterize further. The largest lesion is visualized within the right hepatic lobe measuring 0.7 x 0.6 cm, which is stable. There is mild intrahepatic biliary dilatation. Gallbladder and bile ducts: No discrete gallstones are visualized. Pancreas: Normal contour, without acute peripancreatic stranding. Spleen: Splenomegaly is again visualized. The spleen measures 15.5 cm in the AP dimension. Adrenals: No mass. Kidneys and ureters: No hydronephrosis. No solid mass. Stomach and bowel: Moderate fecal material is identified within the colon. Appendix: The appendix is not visualized. PELVIS: Bladder: No mass. Reproductive: Unremarkable as visualized. ABDOMEN and PELVIS: Intraperitoneal space: No free air. Anterior to the right psoas muscle, there is a hypodense fluid collection measuring 3.6 x 2.0 x 3.9 cm. This is stable compared to the prior study. Abscess is within the differential, but considered less likely due to the stability compared to the prior study. Bones/joints: No acute fracture. Soft tissues: There is mild herniation of fat into the umbilicus. Vasculature: Prominent varices are visualized within the left side of the abdomen and upper abdomen, similar to the prior study. Lymph nodes: No enlarged lymph nodes. IMPRESSION: 1. There is mild increased nodularity of the hepatic contour, consistent with cirrhosis. Several small hypodense hepatic lesions are again visualized, too small to characterize further. The largest lesion is visualized within the right hepatic lobe measuring 0.7 x 0.6 cm, which is stable. 2. There is mild intrahepatic biliary dilatation. Correlation with serum bilirubin is recommended. 3. Prominent varices are visualized within the left side of the abdomen and upper abdomen, similar to the prior study. 4. Splenomegaly is again visualized. 5. Anterior to the right psoas muscle, there is a hypodense fluid collection measuring 3.6 x 2.0 x 3.9 cm. This is stable compared to the prior study. 6. Incidental/non-acute findings are described above.
[2017-06-11] MEDS ORDERED: Morphine 2 mg/ml ISec IVP STA (20:09)
[2017-06-11 20:56] LABS: PROTHROMBIN TIME 48.4 SECONDS (9.4-12.5)
[2017-06-11 20:58] LABS: INR 4.12 (0.93-1.08)
[2017-06-11 21:38] VITALS: BP 120/80; PULSE 70; RESP 19
== END 2017-06-11 21:40 | disposition home or self-care (01) ==
LOC: ED 15:08
DX: R10.9 Unspecified abdominal pain (principal); G89.29 Other chronic pain; I10 Essential (primary) hypertension; M32.9 Systemic lupus erythematosus, unspecified; K21.9 Gastro-esophageal reflux disease without esophagitis
CPT/HCPCS: 74177; 80053; 81001; 85025; 85610; 87086; 96374; 96376; 99285; J2270; Q9966; Q9967

== ENCOUNTER 2017-07-14 07:11 | Day surgery (SDC) | payer MEDICARE ==
[2017-07-14 07:40] VITALS: RESP 16
[2017-07-14] MEDS ORDERED: Propofol 10 mg/ml Inj (20 ML) ONE (07:44)
[2017-07-14] MEDS ORDERED: Lidocaine 2% Inj (20ml) ONE (07:48)
[2017-07-14 07:50] LABS: BASO # 0.02 K/mm3 (0.0-2.0); BASO % 0.4 % (0.0-3.0); EOS # 0.1 (0.0-0.7); EOS % 1.5 % (1.5-5.0); GRAN # 4.36 (1.4-6.5); GRAN % 80.7 % (50.0-68.0); HEMOGLOBIN 12.6 g/dL (12.0-16.0); LYMPH # 0.6 (1.2-3.4); LYMPH % 11.7 % (22.0-35.0); MEAN CELL VOLUME 85.2 fl (80.0-105.0); MEAN CORPUSCULAR HEMOGLOBIN 29.6 pg (25.0-35.0); MEAN CORPUSCULAR HGB CONC 34.8 g/dl (31.0-37.0); MEAN PLATELET VOLUME 10.5 fl (7.0-11.0); MONO # 0.3 (0.1-0.6); MONO % 5.7 % (1.0-6.0); RBC 4.25 10^6/uL (3.5-6.1); RED CELL DISTRIBUTION WIDTH 14.8 % (11.5-14.5); WHITE BLOOD COUNT 5.4 10^3/ul (4.5-11.0)
[2017-07-14 08:02] LABS: INR 1.44 (0.93-1.08); PARTIAL THROMBOPLASTIN TIME 30.9 Seconds (25.1-36.5); PROTHROMBIN TIME 16.7 SECONDS (9.4-12.5)
[2017-07-14] MEDS ORDERED: Sodium Chloride 0.9% 1,000 ML IV SCH (09:00)
[2017-07-14 09:37] VITALS: O2SAT 100
[2017-07-14 10:42] VITALS: BP 129/76; PULSE 89; TEMP 98.3
== END 2017-07-14 11:01 | disposition home or self-care (01) ==
LOC: ENDO 07:11
PROVIDERS: ATTEND Specialist
DX: I85.00 Esophageal varices without bleeding (principal); K44.9 Diaphragmatic hernia without obstruction or gangrene; K63.5 Polyp of colon; K64.8 Other hemorrhoids; K74.60 Unspecified cirrhosis of liver; K21.9 Gastro-esophageal reflux disease without esophagitis; I10 Essential (primary) hypertension
CPT/HCPCS: 36415; 43235; 45385; 84703; 85025; 85610; 85730; 88305; J2704; J3010; J7040 ×2

== ENCOUNTER 2017-08-03 14:02 | Inpatient (IN) | payer MEDICARE, OTHER ==
--- NOTE | 2017-08-03 15:38 | ED PDOC ---
Arrival/HPI - General Time Seen by Provider: 08/03/17 14:45 Historian: Patient - History of Present Illness Narrative History of Present Illness (Text): 08/03/17 15:28 42yo female with pmhx of systemic lupus, portal hepatic thrombosis, referred to ED by Dr. Ho for left lower leg wound. Patient states wound started 2weeks ago and became worse recently. States wound started draining recently. Report burning pain to the wound area. she denies fever, chills, calf pain, any other complaint. Past Medical History - Provider Review Nursing Documentation Reviewed: Yes - Infectious Disease Hx of Infectious Diseases: None - Tetanus Immunization Tetanus Immunization: Unknown - Cardiac Hx Pacemaker: No - Pulmonary Hx Respiratory Disorders: Yes Other/Comment: sob - Neurological Hx Paralysis: No - HEENT Hx HEENT Disorder: Yes (wears eye glasses) - Renal Hx Renal Disorder: No - Endocrine/Metabolic Hx Endocrine Disorders: Yes Hx Hypothyroidism: Yes Hx Systemic Lupus Erythematosus: Yes - Hematological/Oncological Hx Blood Transfusions: No Hx Blood Transfusion Reaction: No - Integumentary Hx Dermatological Disorder: Yes (keratosis polaris) - Musculoskeletal/Rheumatological Hx Musculoskeletal Disorders: Yes - Gastrointestinal Hx Gastrointestinal Disorders: Yes Hx Gastroesophageal Reflux: Yes - Genitourinary/Gynecological Hx Genitourinary Disorders: No - Psychiatric Hx Emotional Abuse: No Hx Physical Abuse: No Hx Substance Use: No - Surgical History Hx Appendectomy: Yes Other/Comment: bone marrow,kidney and rt.lower abdomonal mass biopsy, L breast biopsy - Anesthesia Hx Anesthesia Reactions: No - Suicidal Assessment Feels Threatened In Home Enviroment: No Family/Social History - Physician Review Nursing Documentation Reviewed: Yes Family/Social History: Unknown Family HX Smoking Status: Never Smoked Hx Alcohol Use: No Hx Substance Use: No Hx Substance Use Treatment: No Allergies/Home Meds Allergies/Adverse Reactions: Allergies No Known Allergies Allergy (Verified 03/20/17 15:53) Home Medications: Home Meds Medication Instructions Recorded Confirmed Albuterol Sulfate [Proair Hfa] 2 puff IH DAILY 12/04/11 07/14/17 Gabapentin [Neurontin] 300 mg PO DAILY 09/21/16 07/14/17 Potassium Chloride [Klor-Con 10] 10 meq PO DAILY 09/21/16 07/14/17 oxyCODONE [oxyCODONE Immediate 10 mg PO TID PRN 09/21/16 07/14/17 Release Tab] Cholecalciferol (Vitamin D3) 1.25 mg PO MON 03/20/17 07/14/17 [Vitamin D-400] Hydroxychloroquine Sulfate 200 mg PO BID 03/20/17 07/14/17 [Plaquenil] Levothyroxine Sodium [Unithroid] 25 mcg PO DAILY 03/20/17 07/14/17 Warfarin [Coumadin] 5 mg PO 1800 03/20/17 07/14/17 amLODIPine [Norvasc] 10 mg PO DAILY 03/20/17 07/14/17 fentaNYL 50 mcg/hr [Duragesic 25 mcg TD Q72 03/20/17 07/14/17 Patch 50 mcg/hr] Cyanocobalamin [Vitamin B12 1000 1,000 mcg PO DAILY 07/06/17 07/14/17 mcg Tab] Cyclobenzaprine HCl [Flexeril] 5 mg PO HS 07/06/17 07/14/17 Ergocalciferol (Vitamin D2) 1.25 mg PO DAILY 07/06/17 07/14/17 [Vitamin D2] Ferrous Sulfate [Feosol] 324 mg PO DAILY 07/06/17 07/14/17 Folic Acid [Folic Acid] 800 mcg PO DAILY 07/06/17 07/14/17 Furosemide [Lasix] 40 mg PO DAILY 07/06/17 07/14/17 Nadolol [Corgard] 20 mg PO DAILY 07/14/17 07/14/17 Review of Systems - Physician Review All systems were reviewed & negative as marked: Yes - Review of Systems Constitutional: Normal Eyes: Normal ENT: Normal Respiratory: Normal Cardiovascular: Normal Gastrointestinal: Normal Genitourinary Female: Normal Musculoskeletal: Normal Skin: Other (Right leg wound) Neurological: Normal Endocrine: Normal Hemo/Lymphatic: Normal Psychiatric: Normal Physical Exam Vital Signs Reviewed: Yes Vital Signs Temp Pulse Resp BP Pulse Ox 08/03/17 15:59 98.4 F 75 18 102/43 L 100 Temperature: Afebrile Blood Pressure: Normal Pulse: Regular Respiratory Rate: Normal Appearance: Positive for: Well-Appearing, Non-Toxic, Comfortable Pain Distress: None Mental Status: Positive for: Alert and Oriented X 3 - Systems Exam Head: Present: Atraumatic, Normocephalic Pupils: Present: PERRL Extroacular Muscles: Present: EOMI Conjunctiva: Present: Normal Mouth: Present: Moist Mucous Membranes Neck: Present: Normal Range of Motion Respiratory/Chest: Present: Clear to Auscultation, Good Air Exchange. No: Respiratory Distress, Accessory Muscle Use Cardiovascular: Present: Regular Rate and Rhythm, Normal S1, S2. No: Murmurs Abdomen: No: Tenderness, Distention, Peritoneal Signs Back: Present: Normal Inspection Upper Extremity: Present: Normal Inspection. No: Cyanosis, Edema Lower Extremity: Present: Normal Inspection, Other (Superficial wound with central necrotic sloughing noted with surrounding erythema and purulent to left lower leg/mcallister. No crepitus. No warmth. ). No: Edema Neurological: Present: GCS=15, CN II-XII Intact, Speech Normal Skin: Present: Warm, Dry, Normal Color. No: Rashes Psychiatric: Present: Alert, Oriented x 3, Normal Insight, Normal Concentration Medical Decision Making ED Course and Treatment: 08/03/17 20:05 PT in ED for stated history. she was hemodynamically stable. Her lab was unremarkable with normal leukocyte. Pt however have co morbidities with immunosuppressive. Case was ANA Ho and she recommended admission for IV abx. Alex and Jina ordered Blood culture and wound culture pending Case was ANA Pitts and pt was admitted. - Lab Interpretations Lab Results: 08/03/17 16:30 08/03/17 16:30 Lab Results 08/03/17 16:30: Sodium 143, Potassium 4.3, Chloride 107, Carbon Dioxide 26, Anion Gap 15, BUN 8, Creatinine 0.6 L, Est GFR ( Amer) > 60, Est GFR (Non -Af Amer) > 60, Random Glucose 84, Calcium 8.5, Total Bilirubin 1.8 H, AST 33, ALT 27, Alkaline Phosphatase 57, Total Protein 7.6, Albumin 3.8, Globulin 3.8, Albumin/Globulin Ratio 1.0 L 08/03/17 16:30: PT 22.3 H, INR 1.93 H, APTT 30.9 08/03/17 16:30: WBC 5.0, RBC 3.96, Hgb 11.8 L, Hct 33.7 L, MCV 85.1, MCH 29.8, MCHC 35.0, RDW 14.9 H, Plt Count 118 L, MPV 11.5 H, Gran % 66.7, Lymph % (Auto) 23.2, [place] % (Auto) 6.9 H, Eos % (Auto) 3.0, Baso % (Auto) 0.2, Gran # 3.36, Lymph # (Auto) 1.2, [place] # (Auto) 0.4, Eos # (Auto) 0.2, Baso # (Auto) 0.01 - Medication Orders Current Medication Orders: Discontinued Medications Ceftriaxone Sodium (Rocephin 1 Gram Ivpb) 1 gm in 100 mls @ 200 mls/hr IVPB STAT STA PRN Reason: Protocol Stop: 08/03/17 18:12 Last Admin: 08/03/17 18:30 Dose: 200 mls/hr eMAR Start Stop Document 08/03/17 18:30 MS (Rec: 08/03/17 18:32 [email or web address]) Intravenous Solution Start Date 08/03/17 Start Time 18:32 End Date 08/03/17 End time 19:02 Total Infusion Time 30 Vancomycin HCl (Vancomycin 1gm) 1 gm in 250 mls @ 167 mls/hr IVPB STAT STA PRN Reason: Protocol Stop: 08/03/17 19:11 Last Admin: 08/03/17 18:55 Dose: 167 mls/hr eMAR Start Stop Document 08/03/17 18:55 MS (Rec: 08/03/17 19:00 MS [email or web address]) Intravenous Solution Start Date 08/03/17 Start Time 18:57 End Date 08/03/17 End time 20:27 Total Infusion Time 90 Disposition/Present on Arrival - Present on Arrival Any Indicators Present on Arrival: No History of DVT/PE: No History of Uncontrolled Diabetes: No Urinary Catheter: No History Surgical Site Infection Following: None - Disposition Have Diagnosis and Disposition been Completed?: Yes Diagnosis: Cellulitis, Wound infection Disposition: HOSPITALIZED Disposition Time: 17:45 Patient Plan: Admission Patient Problems: Current Active Problems Problem Status Onset Cellulitis Acute Condition: STABLE
[2017-08-03 16:00] VITALS: BMI 30.2
[2017-08-03 17:22] LABS: BASO # 0.01 K/mm3 (0.0-2.0); BASO % 0.2 % (0.0-3.0); EOS # 0.2 (0.0-0.7); GRAN # 3.36 (1.4-6.5); GRAN % 66.7 % (50.0-68.0); HEMOGLOBIN 11.8 g/dL (12.0-16.0); LYMPH # 1.2 (1.2-3.4); LYMPH % 23.2 % (22.0-35.0); MEAN CELL VOLUME 85.1 fl (80.0-105.0); MEAN CORPUSCULAR HEMOGLOBIN 29.8 pg (25.0-35.0); MEAN PLATELET VOLUME 11.5 fl (7.0-11.0); MONO # 0.4 (0.1-0.6); MONO % 6.9 % (1.0-6.0); RBC 3.96 10^6/uL (3.5-6.1); RED CELL DISTRIBUTION WIDTH 14.9 % (11.5-14.5)
[2017-08-03 17:34] LABS: ALBUMIN 3.8 g/dL (3.0-4.8); ALT/SGPT 27 U/L (7-56); AST/SGOT 33 U/L (14-36); BLOOD UREA NITROGEN 8 mg/dL (7-21); CALCIUM 8.5 mg/dL (8.4-10.5); GFR AFRICAN-AMERICAN > 60; GFR NON-AFRICAN AMERICAN > 60
[2017-08-03 17:42] LABS: INR 1.93 (0.93-1.08); PARTIAL THROMBOPLASTIN TIME 30.9 Seconds (25.1-36.5); PROTHROMBIN TIME 22.3 SECONDS (9.4-12.5)
[2017-08-03] MEDS ORDERED: Vancomycin 1gm in NS 250ml 1 GM/250 ML BAG IVPB STA (17:42)
[2017-08-03] MEDS ORDERED: cefTRIAXone 1 gm 1 GM/100 ML BAG IVPB STA (17:43)
--- NOTE | 2017-08-04 00:24 | CP.PCM.CON ---
History of Present Illness - History of Present Illness History of Present Illness: Ms. Fitzgerald is a young 42 year old female seen in office. She reports swelling and pain right leg for past one week. She was advised to go to ER and admission for IV antibiotics. She has history of lupus. Skin involvement with lupus was flared up in past month. No fever, cough. She is able to ambulate . She has history of portal vein thrombosis. On coumadin with therapeutic INR. Review of Systems - Constitutional Constitutional: As Per HPI - EENT Eyes: absent: As Per HPI, Blind Spots, Blurred Vision, Change in Vision, Decreased Night Vision, Diplopia, Discharge, Dry Eye, Exophthalmos, Floaters, Irritation, Itchy Eyes, Loss of Peripheral Vision, Pain, Photophobia, Requires Corrective Lenses, Sees Flashes, Spots in Vision, Tunnel Vision, Other Visual Disturbances, Loss of Vision, Other Ears: absent: As Per HPI, Decreased Hearing, Ear Discharge, Ear Pain, Tinnitus, Abnormal Hearing, Disequilibrium, Dizziness, Other - Breasts Breasts: absent: As Per HPI, Change in Shape, Mass, Pain, Nipple Discharge, Nipple Inversion, Skin Changes, Swelling, Other - Cardiovascular Cardiovascular: absent: As Per HPI, Acrocyanosis, Chest Pain, Chest Pain at Rest , Chest Pain with Activity, Claudication, Diaphoresis, Dyspnea, Dyspnea on Exertion, Edema, Irregular Heart Rhythm, Pain Radiating to Arm/Neck/Jaw, Leg Edema, Leg Ulcers, Lightheadedness, Orthopnea, Palpitations, Paroxysmal Nocturnal Dyspnea, Pedal Edema, Radiating Pain, Rapid Heart Rate, Slow Heart Rate, Syncope, Other - Respiratory Respiratory: absent: As Per HPI, Cough, Dyspnea, Hemoptysis, Dyspnea on Exertion , Wheezing, Snoring, Stridor, Pain on Inspiration, Chest Congestion, Excessive Mucous Production, Change in Mucous Color, Pain with Coughing, Other - Gastrointestinal Gastrointestinal: As Per HPI - Genitourinary Genitourinary: absent: As Per HPI, Change in Urinary Stream, Difficulty Urinating, Dysuria, Flank Pain, Hematuria, Pyuria, Nocturia, Urinary Incontinence, Urinary Frequency, Urinary Hesitance, Urinary Urgency, Voiding Freq/Small Amts, Freq UTI, Hx Renal/Bladder Calculi, Hx /Renal Surgery, Bladder Distension, Other - Reproductive: Female Reproductive:Female: absent: As Per HPI, Amenorrhea, Amenorrhea/ Control, Currently Menstual, Cycle <21 Days, Cycle >35 Days, Cycle Variable, Menses 1-7 Days, Menses >/= 8 Days, Menses Variable, Cycle > 4 Weeks Between, No Menses for 6 Months, Heavy Menses, Light Menses, Normal Menses, Spotting Between Cycles , S/P Hysterectomy, Menopausal, Post Menopausal, Premenarche, Abnormal Vaginal Bleeding, Dysmenorrhea, Dyspareunia, Genital Lesions, Genital Pruritis, Pelvic Pain, Prolapse Symptoms, Sexual Dysfunction, Vaginal Discharge, Vaginal Dryness , Vaginal Odor, Vaginal Pruritis, Other - Musculoskeletal Musculoskeletal: As Per HPI - Integumentary Integumentary: As Per HPI - Neurological Neurological: absent: As Per HPI, Abnormal Gait, Abnormal Hearing, Abnormal Movements, Abnormal Speech, Behavioral Changes, Burning Sensations, Confusion, Convulsions, Disequilibrium, Dizziness, Numbness, Focal Weakness, Frequent Falls , Headaches, Lack of Coordination, Loss of Vision, Memory Loss, Paresthesias, Radicular Pain, Restless Legs, Sensory Deficit, Syncope, Tingling, Tremor, Vertigo, Weakness, Other Visual Disturbances, Other - Psychiatric Psychiatric: absent: As Per HPI, Abnormal Sleep Pattern, Anhedonia, Anxiety, Auditory Hallucinations, Behavioral Changes, Change in Appetite, Change in Libido, Confusion, Depression, Difficulty Concentrating, Hallucinations, Homicidal Ideation, Hopelessness, Irritability, Memory Loss, Mood Swings, Panic Attacks, Paranoia, Suicidal Ideation, Visual Hallucinations, Tactile Hallucinations, Other - Endocrine Endocrine: absent: As Per HPI, Change in Body Appearance, Change in Libido, Cold Intolorance, Deepening of Voice, Excessive Sweating, Fatigue, Flushing, Heat Intolorance, Increase in Ring/Shoe/Hat Size, Palpitations, Polydipsia, Polyphagia, Polyuria, Other - Hematologic/Lymphatic Hematologic: As Per HPI Past Patient History - Infectious Disease Hx of Infectious Diseases: None - Tetanus Immunizations Tetanus Immunization: Unknown - Past Social History Smoking Status: Never Smoked - CARDIAC Hx Hypertension: Yes - PULMONARY Hx Respiratory Disorders: Yes Other/Comment: sob - NEUROLOGICAL Hx Paralysis: No - HEENT Hx HEENT Problems: Yes (wears eye glasses) - RENAL Other/Comment: KIDNEY BX - ENDOCRINE/METABOLIC Hx Systemic Lupus Erythematosus: Yes - HEMATOLOGICAL/ONCOLOGICAL Hx Anemia: Yes - INTEGUMENTARY Other/Comment: DRY SCALY SKIN R/T SLE - MUSCULOSKELETAL/RHEUMATOLOGICAL Hx Falls: Yes - GASTROINTESTINAL Hx Liver Failure: (CIRRHOSIS R/T MEDS) - GENITOURINARY/GYNECOLOGICAL Hx Genitourinary Disorders: No - PSYCHIATRIC Hx Substance Use: No - SURGICAL HISTORY Hx Surgeries: Yes Hx Cardiac Catheterization: Yes - ANESTHESIA Hx Anesthesia Reactions: No Meds Allergies/Adverse Reactions: Allergies Allergy/AdvReac Type Severity Reaction Status Date / Time No Known Allergies Allergy Verified 03/20/17 15:53 - Medications Medications: Current Medications Amlodipine Besylate (Norvasc) 10 mg PO DAILY [facility] Cyclobenzaprine HCl (Flexeril) 5 mg PO HS [facility] Last Admin: 08/03/17 23:05 Dose: 5 mg Fentanyl (Duragesic) 1 patch TD Q72 [facility] Furosemide (Lasix) 40 mg IVP DAILY [facility] Gabapentin (Neurontin) 300 mg PO DAILY [facility] PRN Reason: Protocol Home Med (Home Med) 1 unit PO DAILY [facility] Hydroxychloroquine Sulfate (Plaquenil) 200 mg PO BID [facility] PRN Reason: Protocol Last Admin: 08/03/17 23:05 Dose: 200 mg Cefepime HCl (Maxipime 1gm) 1 gm in 100 mls @ 100 mls/hr IVPB Q8 [facility] PRN Reason: Protocol Stop: 08/12/17 06:01 Vancomycin HCl (Vancomycin 1gm) 1 gm in 250 mls @ 167 mls/hr IVPB Q12H [facility] PRN Reason: Protocol Stop: 08/12/17 06:01 Levothyroxine Sodium (Synthroid) 25 mcg PO DAILY [facility] Nadolol (Corgard) 20 mg PO DAILY [facility] Oxycodone HCl (Oxycodone Immediate Release Tab) 10 mg PO TID PRN PRN Reason: Pain, Mild (1-3) Pantoprazole Sodium (Protonix Ec Tab) 40 mg PO ACB [facility] Potassium Chloride (Klor-Con 10) 10 meq PO DAILY [facility] Warfarin Sodium (Coumadin) 5 mg PO 1800 [facility] PRN Reason: Protocol Physical Exam - Constitutional Appears: Well, Non-toxic - Head Exam Head Exam: ATRAUMATIC, NORMAL INSPECTION, NORMOCEPHALIC - Eye Exam Eye Exam: Normal appearance - ENT Exam ENT Exam: Mucous Membranes Moist, Normal Exam - Neck Exam Neck exam: Positive for: Normal Inspection - Respiratory Exam Respiratory Exam: Clear to Auscultation Bilateral, NORMAL BREATHING PATTERN - Cardiovascular Exam Cardiovascular Exam: REGULAR RHYTHM, +S1, +S2 - GI/Abdominal Exam GI & Abdominal Exam: Normal Bowel Sounds, Soft - Extremities Exam Extremities exam: Positive for: pedal edema Additional comments: right leg swelling, erythema. small area of skin breakdown. white discharge from wound. - Back Exam Back exam: NORMAL INSPECTION - Skin Skin Exam: Erythema, Rash, Warm Results - Vital Signs Recent Vital Signs: Last Vital Signs Temp 98.3 F 08/03/17 22:38 Pulse 78 08/03/17 22:38 Resp 19 08/03/17 22:38 BP 135/85 08/03/17 22:38 Pulse Ox 99 08/03/17 21:34 - Labs Result Diagrams: 08/03/17 16:30 08/03/17 16:30 Assessment & Plan - Assessment and Plan (Free Text) Assessment: 1. Hypercoaguable state . portal vein thrombosis. continue coumadin 5 mg daily. PT, INR to monitor. 2. Right leg cellulitis : IV antibiotics as per ID. Dr. Jimenez consult requested. 3. Leukopenia : chronic . WC is around 2-3 k. 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 4. GI : hepatosplenomegaly. portal vein thrombosis. Thank you Dr. Pitts for allowing us to participate her care. - Date & Time Date: 08/04/17 Time: 00:24
[2017-08-04] MEDS: Cefepime 1gm in NS 100ml 1 GM/100 ML BAG IVPB SCH ×3 (05:57→21:47)
[2017-08-04 06:41] LABS: BASO # 0.01 K/mm3 (0.0-2.0); BASO % 0.3 % (0.0-3.0); EOS # 0.1 (0.0-0.7); EOS % 3.5 % (1.5-5.0); GRAN # 2.01 (1.4-6.5); GRAN % 63.8 % (50.0-68.0); HEMOGLOBIN 10.4 g/dL (12.0-16.0); LYMPH # 0.8 (1.2-3.4); LYMPH % 26.7 % (22.0-35.0); MEAN CELL VOLUME 84.3 fl (80.0-105.0); MEAN CORPUSCULAR HEMOGLOBIN 29.1 pg (25.0-35.0); MEAN CORPUSCULAR HGB CONC 34.6 g/dl (31.0-37.0); MEAN PLATELET VOLUME 11.3 fl (7.0-11.0); MONO # 0.2 (0.1-0.6); MONO % 5.7 % (1.0-6.0); RBC 3.57 10^6/uL (3.5-6.1); RED CELL DISTRIBUTION WIDTH 14.7 % (11.5-14.5)
[2017-08-04 06:49] LABS: INR 2.06 (0.93-1.08)
[2017-08-04 06:55] LABS: WHITE BLOOD COUNT 3.2 10^3/ul (4.5-11.0)
[2017-08-04] MEDS: Vancomycin 1gm in NS 250ml 1 GM/250 ML BAG IVPB SCH ×2 (07:04→17:18)
[2017-08-04 07:20] LABS: ALB/GLOB RATIO 0.9 (1.1-1.8); ALBUMIN 2.9 g/dL (3.0-4.8); ALT/SGPT 24 U/L (7-56); AST/SGOT 20 U/L (14-36); BLOOD UREA NITROGEN 7 mg/dL (7-21); CALCIUM 8.1 mg/dL (8.4-10.5); GFR AFRICAN-AMERICAN > 60; GFR NON-AFRICAN AMERICAN > 60
[2017-08-04] MEDS: Pantoprazole 40 mg EC Tab PO SCH (08:29)
--- NOTE | 2017-08-04 09:55 | HP ---
HISTORY OF PRESENT ILLNESS: The patient is 42-year-old who was referred by Dr. Ho because of worsening leg wound and leg has been swollen. It started almost 2 weeks ago. Since then, it has gotten worse. It started to have some fluid coming out. Denies any fever or chills. No history of nausea or vomiting. Denies any chest pain. No shortness of breath. Patient states she has been ambulatory. PAST MEDICAL HISTORY: Significant for, 1. Lupus. 2. History of portal vein thrombosis. 3. Splenic vein thrombosis,on life-long anticoagulation. 4. Chronic back pain. 5. Peptic ulcer disease. PAST SURGICAL HISTORY: Significant for appendectomy. Recently had an endoscopy and colonoscopy done. On colonoscopy, she had a sessile polyp removed and that was benign. ALLERGIES: SHE IS NOT ALLERGIC TO ANY MEDICATION. MEDICATION AT HOME: She is on oxycodone, Fentanyl 50 mcg every 72 hours, amlodipine 10 mg daily, Coumadin 5 mg daily, potassium, Protonix, Nadolol 20 mg daily, levothyroxine 25 mcg daily, Plaquenil, gabapentin 300 mg three times a day, Lasix 40 mg daily, folic acid 1 mg daily, ferrous sulfate, vitamin D, Flexeril, and albuterol. SOCIAL HISTORY: She lives with her . Denies smoking or drinking. She used to drink socially, but since she is on anticoagulation, she stopped drinking. PHYSICAL EXAMINATION: GENERAL: The patient is awake and alert, able to communicate. VITAL SIGNS: The patient is afebrile, pulse 75, respirations 19, blood pressure 135/55. LUNGS: Bilateral good airflow. No rhonchi or crackle. HEART: S1 and S2 audible. No murmur. ABDOMEN: Soft, nontender. No rebound, no guarding. NEUROLOGIC: Patient is awake, alert, oriented, communicative, able to move all extremities. No focal deficit. SKIN: She has generalized keratosis pilaris. EXTREMITIES: right lower leg has erythema with spots of desquation and ulceration and minimal discharge. LABORATORY DATA: WBC 5, hemoglobin 11.8, hematocrit 33.7, platelets 118. PT 22.3, INR 1.93. Chemistry: Sodium 143, potassium 4.3, chloride 107, CO2 of 26, BUN 8, creatinine 0.6, blood sugar of 84. LFT are within normal limits. ASSESSMENT: 1. right leg cellulitis with superficial ulcer. 2. Coagulation disorder. 3. History of mesenteric vein thrombosis. 4. History of portal vein thrombosis. 5. Lupus. 6. Hypertension. PLAN: Patient will be admitted. ID consult by Dr. Mills and Hematology consult by Dr. Ho has been requested. Local wound care will be started and we will start her on anticoagulation and we will follow up her PT/INR in the morning and we will re-evaluate patient in the morning. Jada Pitts MD MTDD
[2017-08-04] MEDS: Potassium Chloride 10 mEq ER Tab PO SCH (10:09)
[2017-08-04] MEDS: Levothyroxine 25 MCG TAB PO SCH (10:09)
[2017-08-04] MEDS: FOLIC ACID 800 MCG PO SCH (10:10)
[2017-08-04] MEDS: oxyCODONE 10 mg Immediate Release Tab PO PRN ×2 (10:25→18:15)
--- NOTE | 2017-08-04 11:07 | RAD ---
HISTORY: admission COMPARISON: 09/21/2016 FINDINGS: LUNGS: No active pulmonary disease. PLEURA: No significant pleural effusion identified, no pneumothorax apparent. CARDIOVASCULAR: Normal. OSSEOUS STRUCTURES: No significant abnormalities. VISUALIZED UPPER ABDOMEN: Normal. OTHER FINDINGS: None. IMPRESSION: No active disease.
[2017-08-04 12:41] LABS: COMPLEMENT C4 < 8.0 mg/dL (14.0-44.0)
--- NOTE | 2017-08-04 14:00 | PN ---
DATE: 08/04/2017 SUBJECTIVE: The patient is 42 years old, seen and examined, lying in bed, seems to be comfortable. Complained of feeling itchy after she was given vancomycin. Otherwise, doing well. No shortness of breath. No chest pain. No fever or chills. PHYSICAL EXAMINATION: VITAL SIGNS: She is afebrile, pulse 65, respirations 18, blood pressure 109/73. LUNGS: Bilateral fair airflow. No rhonchi or crackle. HEART: S1 and S2 audible. ABDOMEN: Soft. Nontender. No rebound. No guarding. NEUROLOGICAL: She is awake, alert, oriented, communicative. EXTREMITIES: Bilateral legs, she has +1 edema. Right leg is swollen more than the left. Gatica has multiple patches of desquamation, erythema. The patient does have a history of keratosis pilaris, but she is not sure if she during her sleep that might have started this. LABORATORY EXAM: WBC 3.2, hemoglobin 10.4, hematocrit 30.1, platelet Of 89. PT 24, INR 2.06. Chemistry: Sodium 140, potassium 3.3, chloride 108, CO2 of 23, BUN 7, creatinine 0.5, blood sugar of 68, calcium 8.1, total bili 1.5. Her leg wound positive for gram-positive cocci. ASSESSMENT: 1. Right leg cellulitis with superficial desquamation and ulcer. 2. Coagulation disorder. 3. Hypertension. 4. History of lupus. PLAN: Currently, the patient is on her usual medication. She is on nadolol. She is on her Duragesic patch. We will continue her on Lasix and potassium supplementation. She is on Maxipime. Her vancomycin is on hold until reevaluated by Dr. Mills and we will follow up this patient in the a.m. We will follow PT/INR in the a.m. Jada Pitts MD
--- NOTE | 2017-08-04 15:43 | US ---
HISTORY: Leg pain and swelling. Evaluate for DVT PHYSICIAN(S): Jun Bahena MD. TECHNIQUE: Duplex sonography and color-flow Doppler with graded compression were used to evaluate the deep venous systems of both lower extremities. FINDINGS: The visualized deep venous systems of both lower extremities are sonographically normal and compressible. Normal wave forms and augmentation are seen. There is no sonographic evidence for deep venous thrombosis in the visualized segments of both lower extremities. IMPRESSION: No sonographic evidence for deep venous thrombosis in the visualized segments of both lower extremities.
--- NOTE | 2017-08-04 15:46 | US ---
PROCEDURE: Lower extremity KARISHMA exam HISTORY: Peripheral vascular disease with pain and ulceration. Previous smoker. PHYSICIAN(S): Jun Bahena MD. FINDINGS: The resting KARISHMA's are normal: right, 1.35and left, 1.17. The brachial systolic pressures are symmetric. The high thigh pressures and waveforms are relatively normal. The calf PVR waveforms augment normally. No significant gradients are noted across the thighs. The ankle and metatarsal waveforms are relatively normal and symmetric. No significant pressure gradients are noted across the lower legs. IMPRESSION: 1. Normal KARISHMA and PVR examination at rest.
--- NOTE | 2017-08-04 20:47 | CP.PCM.CON ---
History of Present Illness - History of Present Illness History of Present Illness: 42 year old female with PMH of systemic lupus erythematosus, portal vein thrombosis, hypothyroidism, GERD, obesity with BMI 30 was [place] in [place] [facility] [place] because of left leg wound associated with swelling of the leg. She states that it started about 4-5 days ago. She denies soaking her feet in water , no fever or chills, no nausea or vomiting. She denies animal contacts or travel outside of [place] in the past 3 months. She denies headache or dizziness, no SOB, no cough or rhinorrhea, no abdominal pain, no nausea or vomiting, no diarrhea, no dysuria. Infectious Diseases consult is requested to further evaluate and manage. Review of Systems - Review of Systems All systems: reviewed and no additional remarkable complaints except (as per HPI ) Past Patient History - Infectious Disease Hx of Infectious Diseases: None - Tetanus Immunizations Tetanus Immunization: Unknown - Past Social History Smoking Status: Never Smoked - CARDIAC Hx Hypertension: Yes - PULMONARY Hx Respiratory Disorders: Yes Other/Comment: sob - NEUROLOGICAL Hx Paralysis: No - HEENT Hx HEENT Problems: Yes (wears eye glasses) - RENAL Other/Comment: KIDNEY BX - ENDOCRINE/METABOLIC Hx Systemic Lupus Erythematosus: Yes - HEMATOLOGICAL/ONCOLOGICAL Hx Anemia: Yes - INTEGUMENTARY Other/Comment: DRY SCALY SKIN R/T SLE - MUSCULOSKELETAL/RHEUMATOLOGICAL Hx Falls: Yes - GASTROINTESTINAL Hx Liver Failure: (CIRRHOSIS R/T MEDS) - GENITOURINARY/GYNECOLOGICAL Hx Genitourinary Disorders: No - PSYCHIATRIC Hx Substance Use: No - SURGICAL HISTORY Hx Surgeries: Yes Hx Cardiac Catheterization: Yes - ANESTHESIA Hx Anesthesia Reactions: No Meds Allergies/Adverse Reactions: Allergies Allergy/AdvReac Type Severity Reaction Status Date / Time No Known Allergies Allergy Verified 03/20/17 15:53 - Medications Medications: Current Medications Amlodipine Besylate (Norvasc) 10 mg PO DAILY [facility] Cyclobenzaprine HCl (Flexeril) 5 mg PO HS [facility] Last Admin: 08/03/17 23:05 Dose: 5 mg Fentanyl (Duragesic) 1 patch TD Q72 [facility] Furosemide (Lasix) 40 mg IVP DAILY [facility] Gabapentin (Neurontin) 300 mg PO DAILY [facility] PRN Reason: Protocol Home Med (Home Med) 1 unit PO DAILY [facility] Hydroxychloroquine Sulfate (Plaquenil) 200 mg PO BID [facility] PRN Reason: Protocol Last Admin: 08/03/17 23:05 Dose: 200 mg Cefepime HCl (Maxipime 1gm) 1 gm in 100 mls @ 100 mls/hr IVPB Q8 [facility] PRN Reason: Protocol Stop: 08/12/17 06:01 Last Admin: 08/04/17 05:57 Dose: 100 mls/hr Vancomycin HCl (Vancomycin 1gm) 1 gm in 250 mls @ 167 mls/hr IVPB Q12H [facility] PRN Reason: Protocol Stop: 08/12/17 06:01 Last Admin: 08/04/17 07:04 Dose: 167 mls/hr Potassium Chloride (Potassium Chloride 10 Meq/100 Ml) 10 meq in 100 mls @ 50 mls/hr IVPB Q2H [facility] Stop: 08/04/17 12:59 Levothyroxine Sodium (Synthroid) 25 mcg PO DAILY [facility] Nadolol (Corgard) 20 mg PO DAILY [facility] Oxycodone HCl (Oxycodone Immediate Release Tab) 10 mg PO TID PRN PRN Reason: Pain, Mild (1-3) Pantoprazole Sodium (Protonix Ec Tab) 40 mg PO ACB [facility] Last Admin: 08/04/17 08:29 Dose: 40 mg Potassium Chloride (Klor-Con 10) 10 meq PO DAILY [facility] Warfarin Sodium (Coumadin) 5 mg PO 1800 [facility] PRN Reason: Protocol Physical Exam - Constitutional Appears: Chronically Ill - Head Exam Head Exam: NORMAL INSPECTION - Neck Exam Neck exam: Negative for: Meningismus - Respiratory Exam Respiratory Exam: Decreased Breath Sounds - Cardiovascular Exam Cardiovascular Exam: +S1, +S2 - GI/Abdominal Exam GI & Abdominal Exam: Soft. absent: Tenderness - Extremities Exam Additional comments: left leg with dressings in place Results - Vital Signs Recent Vital Signs: Last Vital Signs Temp 98.1 F 08/04/17 06:00 Pulse 65 08/04/17 06:00 Resp 18 08/04/17 06:00 BP 109/73 08/04/17 06:00 Pulse Ox 99 08/04/17 06:00 - Labs Result Diagrams: 08/04/17 06:15 08/04/17 06:15 Labs: Laboratory Results - last 24 hr 08/04/17 08/04/17 08/04/17 06:15 06:15 06:15 WBC 3.2 L D RBC 3.57 Hgb 10.4 L Hct 30.1 L MCV 84.3 MCH 29.1 MCHC 34.6 RDW 14.7 H Plt Count 89 L MPV 11.3 H Gran % 63.8 Lymph % (Auto) 26.7 [place] % (Auto) 5.7 Eos % (Auto) 3.5 Baso % (Auto) 0.3 Gran # 2.01 Lymph # (Auto) 0.8 L [place] # (Auto) 0.2 Eos # (Auto) 0.1 Baso # (Auto) 0.01 ESR 12 PT 24.0 H INR 2.06 H Sodium 140 Potassium 3.3 L Chloride 108 H Carbon Dioxide 23 Anion Gap 13 BUN 7 Creatinine 0.5 L Est GFR ( Amer) > 60 Est GFR (Non-Af Amer) > 60 Random Glucose 68 L Calcium 8.1 L Total Bilirubin 1.5 H AST 20 ALT 24 Alkaline Phosphatase 51 Total Protein 6.3 Albumin 2.9 L Globulin 3.4 Albumin/Globulin Ratio 0.9 L Assessment & Plan - Assessment and Plan (Free Text) Plan: Assessment right leg cellulitis with infected wound systemic lupus erythematosus portal vein thrombosis hypothyroidism GERD obesity with BMI 30 Plan Started patient on Vancomycin and Cefepime pending blood and wound cx will monitor clinically
--- NOTE | 2017-08-05 00:24 | CP.PCM.CON ---
History of Present Illness - History of Present Illness History of Present Illness: Podiatry Consult Note- Dr. Banks 42 y.o female with PMHx of systemic lupus erythematosus, portal vein thrombosis , hypothyroidism, GERD seen and evaluated at bedside for right lower leg swelling and wounds. Seen resting comfortably in bed, in NAD, and AA0x3. Patient reports swelling started a week ago. Reports feeling itchy to the right leg and has been scratching it. Denies nausea, fever, shortness of breath, chest pains or chills during visitation. Past Patient History - Infectious Disease Hx of Infectious Diseases: None - Tetanus Immunizations Tetanus Immunization: Unknown - Past Social History Smoking Status: Never Smoked - CARDIAC Hx Hypertension: Yes - PULMONARY Hx Respiratory Disorders: Yes Other/Comment: sob - NEUROLOGICAL Hx Paralysis: No - HEENT Hx HEENT Problems: Yes (wears eye glasses) - RENAL Other/Comment: KIDNEY BX - ENDOCRINE/METABOLIC Hx Systemic Lupus Erythematosus: Yes - HEMATOLOGICAL/ONCOLOGICAL Hx Anemia: Yes - INTEGUMENTARY Other/Comment: DRY SCALY SKIN R/T SLE - MUSCULOSKELETAL/RHEUMATOLOGICAL Hx Falls: Yes - GASTROINTESTINAL Hx Liver Failure: (CIRRHOSIS R/T MEDS) - GENITOURINARY/GYNECOLOGICAL Hx Genitourinary Disorders: No - PSYCHIATRIC Hx Substance Use: No - SURGICAL HISTORY Hx Surgeries: Yes Hx Cardiac Catheterization: Yes - ANESTHESIA Hx Anesthesia Reactions: No Meds Allergies/Adverse Reactions: Allergies Allergy/AdvReac Type Severity Reaction Status Date / Time No Known Allergies Allergy Verified 03/20/17 15:53 - Medications Medications: Current Medications Amlodipine Besylate (Norvasc) 10 mg PO DAILY [facility] Last Admin: 08/04/17 10:11 Dose: 10 mg Cyclobenzaprine HCl (Flexeril) 5 mg PO HS [facility] Last Admin: 08/04/17 21:45 Dose: 5 mg Fentanyl (Duragesic) 1 patch TD Q72 [facility] Furosemide (Lasix) 40 mg IVP DAILY [facility] Last Admin: 08/04/17 10:11 Dose: 40 mg Gabapentin (Neurontin) 300 mg PO DAILY [facility] PRN Reason: Protocol Last Admin: 08/04/17 10:09 Dose: 300 mg Home Med (Home Med) 1 unit PO DAILY [facility] Last Admin: 08/04/17 10:10 Dose: Not Given Hydroxychloroquine Sulfate (Plaquenil) 200 mg PO BID [facility] PRN Reason: Protocol Last Admin: 08/04/17 17:18 Dose: 200 mg Cefepime HCl (Maxipime 1gm) 1 gm in 100 mls @ 100 mls/hr IVPB Q8 [facility] PRN Reason: Protocol Stop: 08/12/17 06:01 Last Admin: 08/04/17 21:47 Dose: 100 mls/hr Vancomycin HCl (Vancomycin 1gm) 1 gm in 250 mls @ 167 mls/hr IVPB Q12H [facility] PRN Reason: Protocol Stop: 08/12/17 06:01 Last Admin: 08/04/17 17:18 Dose: Not Given Levothyroxine Sodium (Synthroid) 25 mcg PO DAILY [facility] Last Admin: 08/04/17 10:09 Dose: 25 mcg Nadolol (Corgard) 20 mg PO DAILY [facility] Last Admin: 08/04/17 10:11 Dose: 20 mg Oxycodone HCl (Oxycodone Immediate Release Tab) 10 mg PO TID PRN PRN Reason: Pain, Mild (1-3) Last Admin: 08/04/17 18:15 Dose: 10 mg Pantoprazole Sodium (Protonix Ec Tab) 40 mg PO ACB [facility] Last Admin: 08/04/17 08:29 Dose: 40 mg Potassium Chloride (Klor-Con 10) 10 meq PO DAILY [facility] Last Admin: 08/04/17 10:09 Dose: 10 meq Warfarin Sodium (Coumadin) 5 mg PO 1800 [facility] PRN Reason: Protocol Last Admin: 08/04/17 17:17 Dose: 5 mg Physical Exam - Extremities Exam Extremities exam: Negative for: calf tenderness Additional comments: VASC: DP and PT 2/4 bilaterally, CFT < 3 seconds x 10 digits, temperature gradient WNL, edema noted to right LE ORTHO: mild pain with palpation surrounding ulcerations, MM is 5/5 in all four compartments: dorsiflexion, plantarflexion, inversion, and eversion NEURO: gross and protective sensation intact bilaterally DERM: multiple superficial abrasions noted to the anterior aspect of middle 1/3 right leg, with erythema and swelling noted, no drainage, no purulence, no streaking, no malodor, no tunneling or undermining noted. Diffuse small rough folliculocentric keratotic papules to the entire lower extremity and body Results - Vital Signs Recent Vital Signs: Last Vital Signs Temp 98.8 F 08/04/17 16:48 Pulse 69 08/04/17 16:48 Resp 19 08/04/17 16:48 BP 115/74 08/04/17 16:48 Pulse Ox 96 08/04/17 16:48 - Labs Result Diagrams: 08/05/17 05:30 08/05/17 05:30 Labs: Laboratory Results - last 24 hr 08/04/17 08/04/17 08/04/17 06:15 06:15 06:15 WBC 3.2 L D RBC 3.57 Hgb 10.4 L Hct 30.1 L MCV 84.3 MCH 29.1 MCHC 34.6 RDW 14.7 H Plt Count 89 L MPV 11.3 H Gran % 63.8 Lymph % (Auto) 26.7 Sampson % (Auto) 5.7 Eos % (Auto) 3.5 Baso % (Auto) 0.3 Gran # 2.01 Lymph # (Auto) 0.8 L Sampson # (Auto) 0.2 Eos # (Auto) 0.1 Baso # (Auto) 0.01 ESR 12 PT INR Sodium 140 Potassium 3.3 L Chloride 108 H Carbon Dioxide 23 Anion Gap 13 BUN 7 Creatinine 0.5 L Est GFR ( Amer) > 60 Est GFR (Non-Af Amer) > 60 Random Glucose 68 L Calcium 8.1 L Total Bilirubin 1.5 H AST 20 ALT 24 Alkaline Phosphatase 51 C-Reactive Protein < 5.00 Total Protein 6.3 Albumin 2.9 L Globulin 3.4 Albumin/Globulin Ratio 0.9 L Complement C3 55.0 L Complement C4 < 8.0 L RPR 08/04/17 08/04/17 06:15 06:20 WBC RBC Hgb Hct MCV MCH MCHC RDW Plt Count MPV Gran % Lymph % (Auto) Sampson % (Auto) Eos % (Auto) Baso % (Auto) Gran # Lymph # (Auto) Sampson # (Auto) Eos # (Auto) Baso # (Auto) ESR PT 24.0 H INR 2.06 H Sodium Potassium Chloride Carbon Dioxide Anion Gap BUN Creatinine Est GFR ( Amer) Est GFR (Non-Af Amer) Random Glucose Calcium Total Bilirubin AST ALT Alkaline Phosphatase C-Reactive Protein Total Protein Albumin Globulin Albumin/Globulin Ratio Complement C3 Complement C4 RPR Nonreactive Assessment & Plan - Assessment and Plan (Free Text) Assessment: 42 y.o female with PMHx of systemic lupus erythematosus, portal vein thrombosis , hypothyroidism, GERD seen and evaluated at bedside for right lower leg ulcerations with cellulitis and LE keratosis pilaris Plan: Patient seen and evaluated Discussed plan in detail with attending Dr Banks Labs, vitals reviewed Cleansed right lower extremity ulcerations with saline solution, dressed with xeroform and dsd Ordered LacHydrin for the lower extremity C/W abx Will continue to provide local wound care Will continue to follow while in house Thank you for allowing us to participate in patient's care - Date & Time Date: 08/04/17 Time: 18:00
[2017-08-05] MEDS: oxyCODONE 10 mg Immediate Release Tab PO PRN ×2 (06:11→14:51)
[2017-08-05] MEDS: Cefepime 1gm in NS 100ml 1 GM/100 ML BAG IVPB SCH (06:12)
[2017-08-05 06:29] LABS: HEMOGLOBIN 10.5 g/dL (12.0-16.0); MEAN CELL VOLUME 84.2 fl (80.0-105.0); MEAN CORPUSCULAR HEMOGLOBIN 29.6 pg (25.0-35.0); MEAN CORPUSCULAR HGB CONC 35.1 g/dl (31.0-37.0); MEAN PLATELET VOLUME 11.1 fl (7.0-11.0); RBC 3.55 10^6/uL (3.5-6.1); RED CELL DISTRIBUTION WIDTH 14.8 % (11.5-14.5); WHITE BLOOD COUNT 3.6 10^3/ul (4.5-11.0)
[2017-08-05 06:39] LABS: INR 2.2 (0.93-1.08); PROTHROMBIN TIME 25.7 SECONDS (9.4-12.5)
[2017-08-05 07:22] LABS: ALB/GLOB RATIO 0.9 (1.1-1.8); ALT/SGPT 21 U/L (7-56); AST/SGOT 20 U/L (14-36); BLOOD UREA NITROGEN 10 mg/dL (7-21); CALCIUM 8.2 mg/dL (8.4-10.5); GFR AFRICAN-AMERICAN > 60; GFR NON-AFRICAN AMERICAN > 60
[2017-08-05] MEDS: Pantoprazole 40 mg EC Tab PO SCH (08:16)
[2017-08-05] MEDS: Levothyroxine 25 MCG TAB PO SCH (09:15)
[2017-08-05] MEDS: Potassium Chloride 10 mEq ER Tab PO SCH (09:16)
[2017-08-05] MEDS: Desoximetasone 0.05% Cream(60 gm) TOP SCH ×2 (09:17→17:31)
[2017-08-05] MEDS: Ammonium Lactate 12% Cream (140 g) TOP SCH (09:18)
[2017-08-05] MEDS ORDERED: Ammonium Lactate 12% Cream (140 g) TOP SCH (10:00)
[2017-08-05] MEDS ORDERED: Potassium Chloride 10 mEq ER Tab PO SCH (10:08)
[2017-08-05] MEDS: FOLIC ACID 800 MCG PO SCH (10:47)
[2017-08-05] MEDS: ceFAZolin 2 GM in Sodium Chloride 0.9% 100 ML IVPB SCH ×3 (10:49→22:37)
--- NOTE | 2017-08-05 14:40 | PN ---
DATE: 08/05/2017 SUBJECTIVE: The patient is 42 years old, seen and examined, lying in bed, seems to be comfortable. She still has right leg swelling. Ulcer has significantly improved. No nausea, vomiting. No diarrhea. Eating and tolerating. PHYSICAL EXAMINATION: VITAL SIGNS: She is afebrile, pulse 73, respirations 19, blood pressure 124/74. LUNGS: Bilateral good airflow. No rhonchi or crackle. HEART: S1 and S2 audible. ABDOMEN: Soft, nontender. No rebound. No guarding. NEUROLOGICAL: The patient is awake, alert, oriented, communicative, ambulatory. EXTREMITIES: Right leg is in the dressing. LABORATORY EXAM: WBC 3.6, hemoglobin 10.5, hematocrit 29.9, platelet of 89. PT 25.7, INR 2.20. Chemistry: Sodium 143, potassium 3.3, chloride 110, CO2 23, BUN 10, creatinine 0.5, blood sugar of 81. Blood culture negative. Wound culture positive for Staphylococcus aureus. ASSESSMENT AND PLAN: 1. Right mcallister cellulitis, improving. 2. Lichen keratosis pilaris. 3. Coagulation disorder. 4. History of lupus. PLAN: The patient is currently on IV antibiotics. She is on Ancef. She is getting local treatment. I will request a TCU evaluation to complete her course of antibiotic and wound care. If accepted, can be transferred to TCU. Jada Pitts MD
--- NOTE | 2017-08-05 16:12 | PN ---
DATE: 08/05/2017 SUBJECTIVE: This is a 42-year-old female seen at bedside for followup of a right lower extremity ulceration. The patient is seen with her dressing clean, dry, and intact. She has no new complaints. The patient's past medical history is positive for chronic portal vein thrombosis, systemic lupus, and the patient also has history of hypothyroidism as well as keratosis pilaris of the skin. The patient denies any fever or chills since last seen and states she is starting to feel better. PHYSICAL EXAMINATION: VITAL SIGNS: Reviewed. Her temperature is 98.8, the pulse is 69, blood pressure is 115/74, and respirations are 19. LABORATORY DATA: Reviewed. Her white blood cell count is 3.6, H and H 10.5 and 29.9, and the platelets are 89. The patient's granulocytes and lymphocytes were grossly within normal limits with no definitive shift. Her ESR is 12. Chemistry shows sodium is 143, potassium is 3.3, chloride is 110, carbon dioxide was 23. BUN is 10, creatinine is 0.5. Her glucose was 81. The patient's microbiology shows Staph aureus on the wound culture with a sensitive Staph. The patient is presently being treated by Infectious Disease for her antibiotics. The patient's lower extremity showed that she has 2/4 palpable pedal pulses bilateral with temperature gradient is within normal limits, bilateral and at this time either of the legs are edematous. She does have ulceration, indicative of folliculitis to the anterior mcallister of her right lower extremity. There is localized erythema which is reducing with the antibiotics. There is minimal pain on palpation; however, the patient has diffuse keratotic papules and this is diffuse all over her body, both lower extremities, her trunk, and her arms. ASSESSMENT: Superficial ulcerations with local cellulitis to the right lower extremity. The patient with keratosis pilaris. PLAN OF TREATMENT: We are going continue the Xeroform and a dry sterile dressing on the right lower extremity. I did discuss with the patient some treatment options for the keratosis pilaris including Lac-Hydrin lotion which was ordered to be placed on twice a day. The patient is to shower and use soapy water and to gently exfoliate the lesions and then to put on Lac-Hydrin as soon as she comes out of the shower. We also ordered patient Juzo cotton basic stockings. She does need some however, nylon would most likely irritate her skin, so the cotton in 20 mmHg, which she can purchase. The [facility] she is [facility] and antibiotics will be as per the Infectious Disease. Dressing change was done by myself today. Katheryn Banks DPM
--- NOTE | 2017-08-05 16:44 | CP.PCM.PN ---
Subjective - Date & Time of Evaluation Date of Evaluation: 08/05/17 Time of Evaluation: 10:30 - Subjective Subjective: Patient is feeling better, no nausea, no rash, no fevers. Leg feels better. Objective - Vital Signs/Intake and Output Vital Signs (last 24 hours): Temp Pulse Resp BP Pulse Ox 98.8 F 69 19 115/74 96 08/04/17 16:48 08/04/17 16:48 08/04/17 16:48 08/04/17 16:48 08/04/17 16:48 - Medications Medications: Current Medications Amlodipine Besylate (Norvasc) 10 mg PO DAILY [facility] Last Admin: 08/04/17 10:11 Dose: 10 mg Cyclobenzaprine HCl (Flexeril) 5 mg PO HS [facility] Last Admin: 08/04/17 21:45 Dose: 5 mg Desoximetasone (Topicort 0.05%) 0 ea TOP BID [facility] Fentanyl (Duragesic) 1 patch TD Q72 [facility] Furosemide (Lasix) 40 mg IVP DAILY [facility] Last Admin: 08/04/17 10:11 Dose: 40 mg Gabapentin (Neurontin) 300 mg PO DAILY [facility] PRN Reason: Protocol Last Admin: 08/04/17 10:09 Dose: 300 mg Home Med (Home Med) 1 unit PO DAILY [facility] Last Admin: 08/04/17 10:10 Dose: Not Given Hydroxychloroquine Sulfate (Plaquenil) 200 mg PO BID [facility] PRN Reason: Protocol Last Admin: 08/04/17 17:18 Dose: 200 mg Cefazolin Sodium 2 gm/ Sodium (Chloride) 100 mls @ 200 mls/hr IVPB Q8 [facility] PRN Reason: Protocol Lactic Acid (Lac-Hydrin 12% Cream (140 G)) 1 ea TOP DAILY [facility] Lactic Acid (Lac-Hydrin 12% Cream (140 G)) 0 ea TOP DAILY [facility] Levothyroxine Sodium (Synthroid) 25 mcg PO DAILY [facility] Last Admin: 08/04/17 10:09 Dose: 25 mcg Nadolol (Corgard) 20 mg PO DAILY [facility] Last Admin: 08/04/17 10:11 Dose: 20 mg Oxycodone HCl (Oxycodone Immediate Release Tab) 10 mg PO TID PRN PRN Reason: Pain, Mild (1-3) Last Admin: 08/05/17 06:11 Dose: 10 mg Pantoprazole Sodium (Protonix Ec Tab) 40 mg PO ACB [facility] Last Admin: 08/04/17 08:29 Dose: 40 mg Potassium Chloride (Klor-Con 10) 10 meq PO DAILY [facility] Last Admin: 08/04/17 10:09 Dose: 10 meq Warfarin Sodium (Coumadin) 5 mg PO 1800 [facility] PRN Reason: Protocol Last Admin: 08/04/17 17:17 Dose: 5 mg - Labs Labs: 08/05/17 05:30 08/05/17 05:30 PT 25.7 SECONDS (9.4-12.5) H 08/05/17 05:30 INR 2.20 (0.93-1.08) H 08/05/17 05:30 APTT 30.9 Seconds (25.1-36.5) 08/03/17 16:30 - Constitutional Appears: Non-toxic, Chronically Ill - Head Exam Head Exam: NORMAL INSPECTION - ENT Exam ENT Exam: Mucous Membranes Moist - Neck Exam Neck Exam: absent: Meningismus - Respiratory Exam Respiratory Exam: Decreased Breath Sounds - Cardiovascular Exam Cardiovascular Exam: +S1, +S2 - GI/Abdominal Exam GI & Abdominal Exam: Soft. absent: Tenderness - Extremities Exam Additional comments: right leg with decreased swelling Assessment and Plan - Assessment and Plan (Free Text) Plan: Assessment right leg cellulitis with infected wound, growing MSSA systemic lupus erythematosus portal vein thrombosis hypothyroidism GERD obesity with BMI 30 Plan switched to CEfazolin and will monitor clinically
[2017-08-06] MEDS: oxyCODONE 10 mg Immediate Release Tab PO PRN (05:39)
[2017-08-06] MEDS: ceFAZolin 2 GM in Sodium Chloride 0.9% 100 ML IVPB SCH (05:40)
[2017-08-06 06:32] LABS: BASO # 0.01 K/mm3 (0.0-2.0); BASO % 0.3 % (0.0-3.0); EOS # 0.1 (0.0-0.7); EOS % 2.9 % (1.5-5.0); GRAN % 64.8 % (50.0-68.0); HEMOGLOBIN 10.9 g/dL (12.0-16.0); LYMPH # 0.8 (1.2-3.4); LYMPH % 24.9 % (22.0-35.0); MEAN CELL VOLUME 84.7 fl (80.0-105.0); MEAN CORPUSCULAR HEMOGLOBIN 29.9 pg (25.0-35.0); MEAN CORPUSCULAR HGB CONC 35.3 g/dl (31.0-37.0); MEAN PLATELET VOLUME 11.8 fl (7.0-11.0); MONO # 0.2 (0.1-0.6); MONO % 7.1 % (1.0-6.0); RBC 3.65 10^6/uL (3.5-6.1); RED CELL DISTRIBUTION WIDTH 14.8 % (11.5-14.5); WHITE BLOOD COUNT 3.1 10^3/ul (4.5-11.0)
[2017-08-06 06:59] LABS: ALB/GLOB RATIO 0.9 (1.1-1.8); ALT/SGPT 24 U/L (7-56); AST/SGOT 20 U/L (14-36); BLOOD UREA NITROGEN 8 mg/dL (7-21); CALCIUM 8.2 mg/dL (8.4-10.5); GFR AFRICAN-AMERICAN > 60; GFR NON-AFRICAN AMERICAN > 60
[2017-08-06 07:21] LABS: INR 1.96 (0.93-1.08); PROTHROMBIN TIME 22.8 SECONDS (9.4-12.5)
[2017-08-06 08:28] VITALS: PULSE 71; RESP 16; TEMP 98.4; O2SAT 97
[2017-08-06] MEDS: Levothyroxine 25 MCG TAB PO SCH (09:17)
[2017-08-06] MEDS: FOLIC ACID 800 MCG PO SCH (09:17)
[2017-08-06] MEDS: Desoximetasone 0.05% Cream(60 gm) TOP SCH (09:18)
[2017-08-06] MEDS: Ammonium Lactate 12% Cream (140 g) TOP SCH (09:18)
[2017-08-06] MEDS: Pantoprazole 40 mg EC Tab PO SCH (09:21)
[2017-08-06 09:24] VITALS: BP 94/65
[2017-08-06] MEDS ORDERED: Potassium Chloride 20 mEq ER Tab PO ONE (11:47)
[2017-08-06] MEDS ORDERED: Potassium Chloride 20 mEq ER Tab PO SCH (11:50)
--- NOTE | 2017-08-06 12:27 | CP.PCM.PN ---
Subjective - Date & Time of Evaluation Date of Evaluation: 08/06/17 Time of Evaluation: 10:45 - Subjective Subjective: Right leg is starting to feel better, less swelling, still with redness around the wounds but a little better. Objective - Vital Signs/Intake and Output Vital Signs (last 24 hours): Temp Pulse Resp BP Pulse Ox 98.4 F 71 16 94/65 L 97 08/06/17 06:00 08/06/17 06:00 08/06/17 06:00 08/06/17 09:19 08/06/17 06:00 Intake and Output: 08/06/17 08/06/17 06:59 18:59 Intake Total 860 Balance 860 - Medications Medications: Current Medications Amlodipine Besylate (Norvasc) 10 mg PO DAILY [facility] Last Admin: 08/06/17 09:19 Dose: Not Given Cyclobenzaprine HCl (Flexeril) 5 mg PO HS [facility] Last Admin: 08/05/17 22:37 Dose: 5 mg Desoximetasone (Topicort 0.05%) 0 ea TOP BID [facility] Last Admin: 08/06/17 09:18 Dose: 1 applic Fentanyl (Duragesic) 1 patch TD Q72H [facility] Last Admin: 08/05/17 22:33 Dose: 1 patch Furosemide (Lasix) 40 mg IVP DAILY [facility] Last Admin: 08/06/17 09:19 Dose: 40 mg Gabapentin (Neurontin) 300 mg PO DAILY [facility] PRN Reason: Protocol Last Admin: 08/06/17 09:17 Dose: 300 mg Home Med (Home Med) 1 unit PO DAILY [facility] Last Admin: 08/06/17 09:17 Dose: Not Given Hydroxychloroquine Sulfate (Plaquenil) 200 mg PO BID [facility] PRN Reason: Protocol Last Admin: 08/06/17 09:17 Dose: 200 mg Cefazolin Sodium 2 gm/ Sodium (Chloride) 100 mls @ 200 mls/hr IVPB Q8 [facility] PRN Reason: Protocol Last Admin: 08/06/17 05:40 Dose: 200 mls/hr Lactic Acid (Lac-Hydrin 12% Cream (140 G)) 0 ea TOP DAILY [facility] Last Admin: 08/06/17 09:18 Dose: 1 applic Levothyroxine Sodium (Synthroid) 25 mcg PO DAILY [facility] Last Admin: 08/06/17 09:17 Dose: 25 mcg Nadolol (Corgard) 20 mg PO DAILY [facility] Last Admin: 08/06/17 09:18 Dose: Not Given Oxycodone HCl (Oxycodone Immediate Release Tab) 10 mg PO TID PRN PRN Reason: Pain, Mild (1-3) Last Admin: 08/06/17 05:39 Dose: 10 mg Pantoprazole Sodium (Protonix Ec Tab) 40 mg PO ACB [facility] Last Admin: 08/06/17 09:21 Dose: 40 mg Potassium Chloride (K-Dur 20 Meq Er Tab) 20 meq PO DAILY [facility] Warfarin Sodium (Coumadin) 5 mg PO 1800 [facility] PRN Reason: Protocol Last Admin: 08/05/17 17:30 Dose: 5 mg - Labs Labs: 08/06/17 05:15 08/06/17 05:15 PT 22.8 SECONDS (9.4-12.5) H 08/06/17 06:19 INR 1.96 (0.93-1.08) H 08/06/17 06:19 APTT 30.9 Seconds (25.1-36.5) 08/03/17 16:30 - Constitutional Appears: Non-toxic, Chronically Ill - Head Exam Head Exam: NORMAL INSPECTION - Neck Exam Neck Exam: absent: Meningismus - Respiratory Exam Respiratory Exam: Decreased Breath Sounds. absent: Rales - Cardiovascular Exam Cardiovascular Exam: +S1, +S2 - GI/Abdominal Exam GI & Abdominal Exam: Soft. absent: Tenderness - Extremities Exam Additional comments: right leg with decreasing swelling, wounds with slowly decreasing surrounding erythema, without oozing Assessment and Plan - Assessment and Plan (Free Text) Plan: Assessment right leg cellulitis with infected wound, growing MSSA, slowly improving systemic lupus erythematosus portal vein thrombosis hypothyroidism GERD obesity with BMI 30 Plan on Cefazolin (total day 3 of antibiotics) - can switch to PO Keflex 500 mg q8 for another 10 days when ready for discharge
--- NOTE | 2017-08-07 11:56 | DS ---
HISTORY OF PRESENT ILLNESS: Patient is 42 years old, seen and examined, sitting in chair. Seems to be comfortable. No nausea or vomiting. No diarrhea. No fever. No chills. PHYSICAL EXAMINATION: VITAL SIGNS: She is afebrile, pulse 71, respirations 16, blood pressure . LUNGS: Bilateral good air flow. No rhonchi or crackle. HEART: S1 and S2 audible. ABDOMEN: Soft and nontender. No rebound. No guarding. NEUROLOGIC: Patient is awake, alert, oriented, communicative. EXTREMITIES: Right leg is in the dressing. She still has erythema with some swelling, relatively better as compared to when she came in. LABORATORY DATA: WBC 3.1, hemoglobin 10.9, hematocrit 30.9, platelets of 90. PT 22.8, INR 1.96. Chemistry: Sodium 141, potassium 3.4, chloride 108, CO2 25, BUN 8, creatinine 0.5, blood sugar of 81. ASSESSMENT: 1. Bilateral leg cellulitis, right more than the left. 2. Staphylococcus aureus wound infection. Blood cultures are negative. 3. History of lupus. 4. Coagulation disorder. PLAN: Patient is being discharged today. Keflex 500 three times a day for 10 days. She will resume all her medications including nadolol, warfarin, Flexeril. She was given extra dose of 20 mEq of potassium. She will continue amlodipine, gabapentin, Protonix and levothyroxine. Jada Pitts MD
== END 2017-08-06 13:49 | disposition home or self-care (01) | DRG 602 ==
LOC: ED 14:02 → ERH 17:43 → 3RNO 20:37
PROVIDERS: ADMIT Internal Medicine; ATTEND Internal Medicine
DX: L03.115 Cellulitis of right lower limb (principal); I81 Portal vein thrombosis; D68.4 Acquired coagulation factor deficiency; L97.919 Non-pressure chronic ulcer of unspecified part of right lower leg with unspecified severity; L03.116 Cellulitis of left lower limb; B95.61 Methicillin susceptible Staphylococcus aureus infection as the cause of diseases classified elsewhere; K74.60 Unspecified cirrhosis of liver; M32.9 Systemic lupus erythematosus, unspecified; I10 Essential (primary) hypertension; E03.9 Hypothyroidism, unspecified; K21.9 Gastro-esophageal reflux disease without esophagitis; M54.9 Dorsalgia, unspecified; G89.29 Other chronic pain; D72.819 Decreased white blood cell count, unspecified; R16.2 Hepatomegaly with splenomegaly, not elsewhere classified; L28.0 Lichen simplex chronicus; L85.8 Other specified epidermal thickening; E66.9 Obesity, unspecified; Z68.30 Body mass index [BMI] 30.0-30.9, adult; Z86.718 Personal history of other venous thrombosis and embolism; Z79.01 Long term (current) use of anticoagulants; Z87.11 Personal history of peptic ulcer disease

== ENCOUNTER 2018-04-11 08:13 | Outpatient (CLI) | payer MEDICARE | END 2018-04-11 08:14 | disposition home or self-care (01) | LOC: RAD 08:13 ==

== ENCOUNTER 2018-05-10 15:06 | Outpatient (CLI) | payer MEDICARE | END 2018-05-10 15:07 | disposition home or self-care (01) | LOC: RAD 15:06 ==

== ENCOUNTER 2018-07-20 14:58 | Outpatient (CLI) | payer MEDICARE | END 2018-07-20 14:59 | disposition home or self-care (01) | LOC: RAD 14:59 | DX: M25.569 Pain in unspecified knee (principal); S83.241A Other tear of medial meniscus, current injury, right knee, initial encounter ==

== ENCOUNTER 2018-07-22 14:53 | Outpatient (CLI) | payer MEDICARE | END 2018-07-22 14:54 | disposition home or self-care (01) | LOC: RAD 14:53 ==